=== PATIENT | female | born 1970 | race Caucasian/White ===

== ENCOUNTER 2020-02-26 11:40 | Inpatient (IN) | payer MEDICAID, SELFPAY ==
[2020-02-26 11:59] VITALS: BP 91/57; PULSE 96; RESP 16; TEMP 37; O2SAT 95; BMI 23.2
--- NOTE | 2020-02-26 12:21 | XR_ITS ---
EXAMINATION: XR CHEST CLINICAL INFORMATION: Shortness of breath and weakness COMPARISON: Previous chest x-ray most recent 02/21/2020 TECHNIQUE: Frontal view of the chest was obtained. FINDINGS: The cardiac and mediastinal contours are normal. The lungs are clear. There is no pleural effusion or pneumothorax There are mild degenerative changes of the spine. XR/XR chest 1V IMPRESSION: No evidence for acute disease in the chest.
--- NOTE | 2020-02-26 12:21 | ECG_ITS ---
Test Reason : SOB Blood Pressure : / mmHG Vent. Rate : 090 BPM Atrial Rate : 090 BPM P-R Int : 130 ms QRS Dur : 078 ms QT Int : 366 ms P-R-T Axes : 069 -03 062 degrees QTc Int : 447 ms Normal sinus rhythm Possible Left atrial enlargement Nonspecific ST abnormality Abnormal ECG When compared with ECG of 13-NOV-2018 12:30, No significant change was found Referred By: Jeimy Victor Electronically Signed By:CJ NOLAND
--- NOTE | 2020-02-26 12:33 | ED_ITS ---
HPI - SOB/Dyspnea General Chief Complaint: Dyspnea Stated Complaint: asthma Time Seen by Provider: 02/26/20 12:03 Source: patient Mode of arrival: ambulatory Limitations: no limitations History of Present Illness HPI Narrative: [age] year old female with a past medical history of diabetes, hypertension, hyperlipidemia, depression, anxiety, migraines, asthma, PE/DVT not on anticoagulation here with multiple complaints. The patient tells me approximately 1 month ago she inhaled some Clorox bleach while cleaning and since then has had cough and shortness of breath. She was seen last week at a emergency department in [place]. She had a chest x-ray which he tells me was unremarkable and she was placed on 5 days of an antibiotic which she does not know the name as well as 5 days of prednisone. She completed those this morning but continues to have symptoms of cough and shortness of breath. She tells me she has a nonproductive cough that feels like she has chest congestion. Shortness of breath with exertion. Chest pressure which is worsened with deep breathing and coughing and movement. The patient is also complaining of generalized weakness, headache and malaise. No vomiting, abdominal pain, diarrhea, fevers. No leg pain or swelling. MD elicited complaint: shortness of breath, cough, pain with inspiration and chest pain Pertinent past history: asthma Onset (ago): week(s) Timing: constant Severity: mild Exacerbating factors: exertion, coughing and inspiration Relieving factors: rest Associated symptoms: chest pain, pain with inspiration, cough and wheezing Related Data Home Medications Medication Instructions Recorded Confirmed albuterol sulfate 2 puff INHALATION Q6H PRN 02/26/20 02/26/20 atorvastatin 1 tab PO DAILY 02/26/20 02/26/20 duloxetine 1 cap PO DAILY 02/26/20 02/26/20 empagliflozin-metformin [Synjardy 2 tab PO DAILY 02/26/20 02/26/20 XR] fluticasone propionate [Flovent 1 puff INHALATION BID 02/26/20 02/26/20 HFA] insulin degludec [Tresiba unit SUBCUT DAILY 02/26/20 FlexTouch U-200] insulin lispro [Humalog KwikPen See Protocol SUBCUT QIDACHS 02/26/20 02/26/20 Insulin] lisinopril-hydrochlorothiazide 1 tab PO DAILY 02/26/20 02/26/20 mirtazapine 1 tab PO BEDTIME 02/26/20 02/26/20 Allergies Allergy/AdvReac Type Severity Reaction Status Date / Time No Known Allergies Allergy Unverified 12/07/19 16:08 [No Known Allergies*] Review of Systems Review of Systems: Yes all other systems are reviewed and are negative Constitutional: Constitutional: Reports no additional constitutional complaints, Reports body ache(s), Denies chills, Denies fever(s), Reports headache(s) and Reports weakness Eyes: Eyes: Reports no additional eye complaints and Denies change in vision ENT: Reports system reviewed and no additional complaints, except as documented, Denies dizziness, Reports headache(s), Denies nasal congestion, Denies nasal discharge and Denies neck pain Cardiovascular: Cardiovascular: Reports no additional cardiovascular complaints, Reports chest pain, Denies leg edema and Reports dyspnea Respiratory: Respiratory: Reports no additional respiratory complaints, Reports cough and Reports dyspnea Gastrointestinal: Gastrointestinal: Reports no additional gastrointestinal complaints, Denies abdominal pain, Denies diarrhea, Denies nausea and Denies vomiting Genitourinary: Genitourinary: Reports no additional female genitourinary complaints and Denies urinary incontinence Musculoskeletal: Musculoskeletal: Reports no additional musculoskeletal complaints, Denies back pain, Denies arthralgias, Denies joint swelling, Denies neck pain, Denies numbness and Denies tingling Integumentary/Breasts: Skin/Breast: Reports system reviewed and no additional complaints, except as docu and Denies rash Neurologic: Reports system reviewed and no additional complaints, except as documented, Denies Abnormal speech present, Denies dizziness, Reports head ache(s), Denies numbness, Denies tingling and Reports weakness PMFSH Past Medical History Attestation statement: The following information was validated with the patient. Source: old records reviewed and nursing notes reviewed Medical History (Updated 02/26/20 @ 17:08 by Jeimy Victor NP) Anxiety Asthma Depression Diabetes Hyperlipidemia Hypertension Social History Social History Alcohol intake: unknown Smoking Status: Unknown if ever smoked Use of substances other than those prescribed or required for medical reasons: No Advance Directives: No Advance Directives Information Provided: Yes Physical Exam Vital Signs: Vital Signs: Last Vital Signs Temp 98.2 F 02/26/20 13:45 Pulse 84 02/26/20 16:11 Resp 16 02/26/20 16:11 BP 96/63 02/26/20 16:11 Pulse Ox 95 02/26/20 16:11 Body Mass Index 23.2 Const: Other: in pain General: cooperative and no acute distress Orientation/consciousness: patient oriented x3 Limitations: no limitations HENMT: Head: Yes normal to inspection Ears: hearing grossly normal bilaterally General nose exam: Normal external nose present Face and sinus: Yes normal facial exam Mouth: Normal oral and palatal mucosa present Throat: Yes posterior oropharynx normal Eyes: General: appearance normal, both eyes and all related structures Pupils: Equal, round and reactive pupils present Neck: Neck: Yes normal visual inspection Chest: Chest palpation & inspection: normal inspection of the chest and tenderness ( central chest tenderness with deep breathing and palpation) Resp: Other: mild expiratory wheezing throughout Effort & Inspection: normal respiratory effort Cardio: Rate: regular rate Rhythm: regular rhythm Peripheral pulses: Peripheral pulses 2+ throughout GI: Inspection: Yes normal to inspection Palpation (GI): Soft to palpation and nontender Auscultation: normal bowel sounds Back/Spine/Pelvis: Thoracic/Lumbar Spine: thoracic and lumbar spine normal to inspection Skin: General skin exam: no rashes or lesions noted Neuro: General: patient oriented x3, no focal motor deficits and normal sensation to monofilament Cranial nerves: Yes Equal, round and reactive pupils present Cognition (Neuro): normal cognition Speech: No Abnormal speech present Gait exam (Neuro): Normal gait present Motor exam (neuro): 5/5 motor strength present throughout Extrem: General: Yes normal to inspection Course Course Course Narrative: 50-year-old female here with pleuritic chest pain, shortness of breath, cough, body aches, generalized weakness, headache for the last 2 days. Patient has been complaining of asthma symptoms for the last few weeks and completed a course of antibiotics and prednisone with continued symptoms. She now has feels like she is developing new symptoms and is not improving. On arrival the patient is noted to have high blood pressure of 91/57. She does tell me that her blood pressure normally runs low. She has some expiratory wheezing with stable saturations. She does have a history of pulmonary embolism 1 year ago and is not currently on anticoagulation. She does feel like some of her symptoms are similar to her pulmonary embolism. The patient will need labs including blood cultures and lactic acid, EKG, chest x-ray, COVID testing. Once renal function is resulted the patient will likely need a CTA to rule out PE. 1330- labs show leukocytosis at 16.2 and elevated lactic acid of 2.8. She has a corrected sodium of 135. patient's labs are consistent with mild dehydration. She has an elevated glucose of 492. IV insulin ordered. Added on acetone. Troponin 211. EKG shows non specific changes with no ST changes. Less likely ACS with no ST elevation, non specific changes and chest pain >24hrs. UA pending, COVID pending. CXR unremarkable. CTA pending. 1515- CT negative. Plan for repeat troponin, lactic acid and BMP. 1655- repeats glucose and lactic acid improved. Troponin however is now 312 which is increased from 1st troponin of 211. repeat EKG unchanged from initial EKG. Patient tells me her symptoms of chest pressure are much improved after receiving nebulizer, steroids in the ED. discussed with Dr. Becker from cardiology. He recommended admitting the patient to trend her troponins. Advised holding heparin and giving a dose of subQ Lovenox here. 1700-Lovenox subQ ordered. Call out to hospitalist to discuss for admission. -leukocytosis likely secondary to recent steroid use. Lactic acid likely secondary to dehydration and not from sepsis. Blood pressure secondary to dehydration and not from sepsis. Tachypnea secondary to chronic asthma and not from sepsis. 1745- Discussed with Kelli MADRID who accepted admission for patient. MDM - SOB/Dyspnea Medical Records Attestation: I reviewed the patient's medical records. Lab Data Attestation: I reviewed the patient's lab results. Result diagrams: 02/26/20 12:37 02/26/20 15:59 Labs: Lab Results 02/26/20 02/26/20 02/26/20 Range/Units 12:37 12:37 12:37 WBC 16.2 H (4.8-10.8) X10*3/uL RBC 5.22 (4.20-5.50) X10*6/uL Hgb 14.8 (12.0-16.0) g/dl Hct 44.8 (37-47) % MCV 85.8 (80-98) fL MCH 28.4 (27.0-33.0) pg MCHC 33.0 (31.0-35.0) g/dl RDW 12.6 (11.0-16.0) % Plt Count 390 (160-400) X10*3/uL MPV 11.3 (9.4-12.3) fL Immature Gran % (Auto) 1.4 H (0.0-0.4) % Neut % (Auto) 67.2 (45-73) % Lymph % (Auto) 25.0 (20-40) % [place] % (Auto) 5.3 (2-11) % Eos % (Auto) 0.6 (0-4) % Baso % (Auto) 0.5 (0-2) % Lymph # (Auto) 4.0 (1.2-4.9) X10*3/uL [place] # (Auto) 0.9 (0.1-1.2) X10*3/uL Eos # (Auto) 0.1 (0.0-0.4) X10*3/uL Baso # (Auto) 0.1 (0.0-0.2) X10*3/uL Abs Immat Gran (auto) 0.23 H (0.00-0.03) X10*3/uL Absolute Neuts (auto) 10.9 H (2.0-8.3) X10*3/uL Absolute Nucleated RBC 0.000 (0.0-0.012) X10*3/uL Nucleated RBC % (auto) 0.0 (0.0-0.2) /100WBC PT 10.5 L (10.8-13.0) SEC INR 0.9 (0.9-1.1) D-Dimer < 200 NG/ML Sodium 129 L (135-145) mmol/L Potassium 4.6 (3.3-5.1) mmol/l Chloride 91 L (96-108) mmol/L Carbon Dioxide 25 (22-29) mmol/L Anion Gap 18 (12-20) BUN 45 H (9-16) mg/dL Creatinine 1.35 (0.5-1.4) mg/dL Estim Creat Clear Calc 36.4 Estimated GFR 41 Random Glucose 492 H* (60-115) mg/dL Lactic Acid (0.5-2.0) mmol/L Lactic Acid Fup @ 2Hr (0.5-2.0) mmol/L Calcium 9.9 (8.4-10.2) mg/dL Magnesium 2.0 (1.6-2.6) mg/dL Ferritin 181 (10-250) ng/mL Total Bilirubin 0.5 (0.0-1.0) mg/dL Direct Bilirubin < 0.2 (0.0-0.5) mg/dL AST 10 (5-31) U/L ALT 9 (0-31) U/L Alkaline Phosphatase 88 (39-117) U/L Lactate Dehydrogenase 176 (122-220) U/L Troponin I High Sens (<3.5-17.0) ng/L Total Protein 6.1 L (6.5-8.0) g/dL Albumin 3.3 L (3.5-5.0) g/dL Procalcitonin ng/mL Urine Color Urine Appearance Urine pH (5.0-8.0) Ur Specific [place] (1.005-1.025) Urine Protein (NEG-TRACE) MG/DL Urine Glucose (UA) (NEG) MG/DL Urine Ketones (NEG) MG/DL Urine Blood (NEG) Urine Nitrite (NEG) Ur Leukocyte Esterase (NEG) Urine RBC (0) /HPF Urine WBC (0-4) /HPF Ur Squamous Epith Cells /LPF Urine Bacteria /LPF Acetone, Qual Negative (Negative) Coronavirus (PCR) (Negative) Influenza Type A (PCR) (Negative) Influenza Type B (PCR) (Negative) RSV RNA Qual (PCR) (Negative) 02/26/20 02/26/20 02/26/20 Range/Units 12:37 12:37 12:37 WBC (4.8-10.8) X10*3/uL RBC (4.20-5.50) X10*6/uL Hgb (12.0-16.0) g/dl Hct (37-47) % MCV (80-98) fL MCH (27.0-33.0) pg MCHC (31.0-35.0) g/dl RDW (11.0-16.0) % Plt Count (160-400) X10*3/uL MPV (9.4-12.3) fL Immature Gran % (Auto) (0.0-0.4) % Neut % (Auto) (45-73) % Lymph % (Auto) (20-40) % [place] % (Auto) (2-11) % Eos % (Auto) (0-4) % Baso % (Auto) (0-2) % Lymph # (Auto) (1.2-4.9) X10*3/uL [place] # (Auto) (0.1-1.2) X10*3/uL Eos # (Auto) (0.0-0.4) X10*3/uL Baso # (Auto) (0.0-0.2) X10*3/uL Abs Immat Gran (auto) (0.00-0.03) X10*3/uL Absolute Neuts (auto) (2.0-8.3) X10*3/uL Absolute Nucleated RBC (0.0-0.012) X10*3/uL Nucleated RBC % (auto) (0.0-0.2) /100WBC PT (10.8-13.0) SEC INR (0.9-1.1) D-Dimer NG/ML Sodium (135-145) mmol/L Potassium (3.3-5.1) mmol/l Chloride (96-108) mmol/L Carbon Dioxide (22-29) mmol/L Anion Gap (12-20) BUN (9-16) mg/dL Creatinine (0.5-1.4) mg/dL Estim Creat Clear Calc Estimated GFR Random Glucose (60-115) mg/dL Lactic Acid 2.8 H* (0.5-2.0) mmol/L Lactic Acid Fup @ 2Hr (0.5-2.0) mmol/L Calcium (8.4-10.2) mg/dL Magnesium (1.6-2.6) mg/dL Ferritin (10-250) ng/mL Total Bilirubin (0.0-1.0) mg/dL Direct Bilirubin (0.0-0.5) mg/dL AST (5-31) U/L ALT (0-31) U/L Alkaline Phosphatase (39-117) U/L Lactate Dehydrogenase (122-220) U/L Troponin I High Sens 211.1 H (<3.5-17.0) ng/L Total Protein (6.5-8.0) g/dL Albumin (3.5-5.0) g/dL Procalcitonin 0.04 ng/mL Urine Color Urine Appearance Urine pH (5.0-8.0) Ur Specific [place] (1.005-1.025) Urine Protein (NEG-TRACE) MG/DL Urine Glucose (UA) (NEG) MG/DL Urine Ketones (NEG) MG/DL Urine Blood (NEG) Urine Nitrite (NEG) Ur Leukocyte Esterase (NEG) Urine RBC (0) /HPF Urine WBC (0-4) /HPF Ur Squamous Epith Cells /LPF Urine Bacteria /LPF Acetone, Qual (Negative) Coronavirus (PCR) (Negative) Influenza Type A (PCR) (Negative) Influenza Type B (PCR) (Negative) RSV RNA Qual (PCR) (Negative) 02/26/20 02/26/20 02/26/20 Range/Units 12:38 13:34 15:59 WBC (4.8-10.8) X10*3/uL RBC (4.20-5.50) X10*6/uL Hgb (12.0-16.0) g/dl Hct (37-47) % MCV (80-98) fL MCH (27.0-33.0) pg MCHC (31.0-35.0) g/dl RDW (11.0-16.0) % Plt Count (160-400) X10*3/uL MPV (9.4-12.3) fL Immature Gran % (Auto) (0.0-0.4) % Neut % (Auto) (45-73) % Lymph % (Auto) (20-40) % [place] % (Auto) (2-11) % Eos % (Auto) (0-4) % Baso % (Auto) (0-2) % Lymph # (Auto) (1.2-4.9) X10*3/uL [place] # (Auto) (0.1-1.2) X10*3/uL Eos # (Auto) (0.0-0.4) X10*3/uL Baso # (Auto) (0.0-0.2) X10*3/uL Abs Immat Gran (auto) (0.00-0.03) X10*3/uL Absolute Neuts (auto) (2.0-8.3) X10*3/uL Absolute Nucleated RBC (0.0-0.012) X10*3/uL Nucleated RBC % (auto) (0.0-0.2) /100WBC PT (10.8-13.0) SEC INR (0.9-1.1) D-Dimer NG/ML Sodium (135-145) mmol/L Potassium (3.3-5.1) mmol/l Chloride (96-108) mmol/L Carbon Dioxide (22-29) mmol/L Anion Gap (12-20) BUN (9-16) mg/dL Creatinine (0.5-1.4) mg/dL Estim Creat Clear Calc Estimated GFR Random Glucose (60-115) mg/dL Lactic Acid (0.5-2.0) mmol/L Lactic Acid Fup @ 2Hr 1.8 (0.5-2.0) mmol/L Calcium (8.4-10.2) mg/dL Magnesium (1.6-2.6) mg/dL Ferritin (10-250) ng/mL Total Bilirubin (0.0-1.0) mg/dL Direct Bilirubin (0.0-0.5) mg/dL AST (5-31) U/L ALT (0-31) U/L Alkaline Phosphatase (39-117) U/L Lactate Dehydrogenase (122-220) U/L Troponin I High Sens (<3.5-17.0) ng/L Total Protein (6.5-8.0) g/dL Albumin (3.5-5.0) g/dL Procalcitonin ng/mL Urine Color YELLOW Urine Appearance CLEAR Urine pH 5.5 (5.0-8.0) Ur Specific [place] 1.015 (1.005-1.025) Urine Protein NEG (NEG-TRACE) MG/DL Urine Glucose (UA) >=1000 H (NEG) MG/DL Urine Ketones NEG (NEG) MG/DL Urine Blood NEG (NEG) Urine Nitrite NEG (NEG) Ur Leukocyte Esterase NEG (NEG) Urine RBC 0 (0) /HPF Urine WBC 0-2 (0-4) /HPF Ur Squamous Epith Cells 1+ /LPF Urine Bacteria TRACE /LPF Acetone, Qual (Negative) Coronavirus (PCR) NEGATIVE (Negative) Influenza Type A (PCR) NEGATIVE (Negative) Influenza Type B (PCR) NEGATIVE (Negative) RSV RNA Qual (PCR) NEGATIVE (Negative) 02/26/20 02/26/20 Range/Units 15:59 15:59 WBC (4.8-10.8) X10*3/uL RBC (4.20-5.50) X10*6/uL Hgb (12.0-16.0) g/dl Hct (37-47) % MCV (80-98) fL MCH (27.0-33.0) pg MCHC (31.0-35.0) g/dl RDW (11.0-16.0) % Plt Count (160-400) X10*3/uL MPV (9.4-12.3) fL Immature Gran % (Auto) (0.0-0.4) % Neut % (Auto) (45-73) % Lymph % (Auto) (20-40) % [place] % (Auto) (2-11) % Eos % (Auto) (0-4) % Baso % (Auto) (0-2) % Lymph # (Auto) (1.2-4.9) X10*3/uL [place] # (Auto) (0.1-1.2) X10*3/uL Eos # (Auto) (0.0-0.4) X10*3/uL Baso # (Auto) (0.0-0.2) X10*3/uL Abs Immat Gran (auto) (0.00-0.03) X10*3/uL Absolute Neuts (auto) (2.0-8.3) X10*3/uL Absolute Nucleated RBC (0.0-0.012) X10*3/uL Nucleated RBC % (auto) (0.0-0.2) /100WBC PT (10.8-13.0) SEC INR (0.9-1.1) D-Dimer NG/ML Sodium 131 L (135-145) mmol/L Potassium 4.2 (3.3-5.1) mmol/l Chloride 99 (96-108) mmol/L Carbon Dioxide 22 (22-29) mmol/L Anion Gap 14 (12-20) BUN 42 H (9-16) mg/dL Creatinine 0.98 (0.5-1.4) mg/dL Estim Creat Clear Calc 50.2 Estimated GFR 60 Random Glucose 307 H D (60-115) mg/dL Lactic Acid (0.5-2.0) mmol/L Lactic Acid Fup @ 2Hr (0.5-2.0) mmol/L Calcium 8.7 D (8.4-10.2) mg/dL Magnesium (1.6-2.6) mg/dL Ferritin (10-250) ng/mL Total Bilirubin (0.0-1.0) mg/dL Direct Bilirubin (0.0-0.5) mg/dL AST (5-31) U/L ALT (0-31) U/L Alkaline Phosphatase (39-117) U/L Lactate Dehydrogenase (122-220) U/L Troponin I High Sens 312.1 H (<3.5-17.0) ng/L Total Protein (6.5-8.0) g/dL Albumin (3.5-5.0) g/dL Procalcitonin ng/mL Urine Color Urine Appearance Urine pH (5.0-8.0) Ur Specific [place] (1.005-1.025) Urine Protein (NEG-TRACE) MG/DL Urine Glucose (UA) (NEG) MG/DL Urine Ketones (NEG) MG/DL Urine Blood (NEG) Urine Nitrite (NEG) Ur Leukocyte Esterase (NEG) Urine RBC (0) /HPF Urine WBC (0-4) /HPF Ur Squamous Epith Cells /LPF Urine Bacteria /LPF Acetone, Qual (Negative) Coronavirus (PCR) (Negative) Influenza Type A (PCR) (Negative) Influenza Type B (PCR) (Negative) RSV RNA Qual (PCR) (Negative) Imaging Data Chest x-ray: Attestation: I personally reviewed and interpreted this imaging study as follows: Radiologist's impression: EXAMINATION: XR CHEST CLINICAL INFORMATION: Shortness of breath and weakness COMPARISON: Previous chest x-ray most recent 02/21/2020 TECHNIQUE: Frontal view of the chest was obtained. FINDINGS: The cardiac and mediastinal contours are normal. The lungs are clear. There is no pleural effusion or pneumothorax There are mild degenerative changes of the spine. XR/XR chest 1V IMPRESSION: No evidence for acute disease in the chest. CT scan - chest: Attestation: I personally reviewed and interpreted this imaging study as follows: Radiologist's impression: EXAMINATION: CT ANGIOGRAM OF THE CHEST WITH AND WITHOUT CONTRAST (CT PULMONARY ANGIOGRAM FOR PE) CLINICAL INFORMATION: Reason for Exam sob, cp, r/o pe COMPARISON: Previous chest CTA August 2016 from [facility] TECHNIQUE: Prior to contrast administration, noncontrast localization images were obtained. Subsequently, multidetector volumetric imaging was performed from the thoracic inlet to below the diaphragms following the administration of 65 mL Omnipaque 350 intravenous contrast. No contrast reaction reported Sagittal, coronal, and MIP oblique sagittal reformatted images were obtained on the CT workstation, uploaded to PACS, and reviewed. This CT examination was performed using dose optimization techniques as appropriate, variously including the following: *Automated exposure control *Adjustment of mA and/or kV according to patient size (this includes techniques or standardized protocols for targeted exams where dose is matched to indication/reason for exam; i.e. extremities or head) *Use of iterative reconstruction technique Total exam dose-length product 211 mGy-cm FINDINGS: QUALITY OF STUDY/CONTRAST BOLUS: Satisfactory. PULMONARY ARTERIES: No central or segmental pulmonary emboli. THORACIC AORTA: No aneurysm or dissection. LUNG: There is mild bronchial wall thickening and bronchial soft tissue opacification in the right lower lobe for example axial image 314 series 7. There is heterogeneous attenuation in the right lower lobe suggestive of hypoventilatory changes or air trapping. There is a 4 mm left lower lobe nodule axial image 358 series 7. Comparison of the nodule with previous exam is difficult due to airspace disease on August 2016 exam however this may be similar for example axial image 311 series 12. The lungs are otherwise clear. The previously identified diffuse ground glass attenuation seen on 2017 exam has resolved. PLEURA: No pleural effusion or pneumothorax. MEDIASTINUM: Normal heart size. No pericardial effusion. No evidence of septal bowing or right heart strain. There are small mediastinal calcified lymph nodes. No enlarged lymph nodes are seen. CHEST WALL/AXILLA: No axillary or internal mammary lymphadenopathy. OSSEOUS STRUCTURES: No acute or suspicious osseous abnormality. UPPER ABDOMEN: Unremarkable. No reflux of contrast into the hepatic veins to suggest elevated right heart pressures. CT/CT angio chest PE protocol IMPRESSION: No evidence of pulmonary embolism. Mild airways disease in the right lower lobe. Small 4 mm left lower lobe pulmonary nodule. This may have been present on previous 2017 exam. VTE: negative ECG Data Attestation: I personally reviewed and interpreted this ECG as follows: ECG interpretation date: 02/26/20 ECG interpretation time: 12:36 Interpretation: NSR, normal rate 90, normal pr, normal qrs, normal qt, non specific st changes 1538- repeat EKG at 13:41 shows normal sinus rhythm, normal LA, normal QRS, normal QT, normal ST segment no changes from previous Discharge Plan Discharge Clinical Impression: Bronchitis, Acute dehydration, Acute hyperglycemia, Elevated troponin Asthma with exacerbation Qualifiers: Asthma severity: moderate Asthma persistence: persistent Qualified Code(s): J45.41 - Moderate persistent asthma with (acute) exacerbation Patient Disposition: Admitted As Inpatient
[2020-02-26 12:47] LABS: MANUAL DIFF FLAG NO
[2020-02-26 12:48] LABS: Basophils Absolute Auto 0.1 X10*3/uL (0.0-0.2); Basophils Percent Auto 0.5 % (0-2); Eosinophils Absolute Auto 0.1 X10*3/uL (0.0-0.4); Eosinophils Percent Auto 0.6 % (0-4); Hematocrit 44.8 % (37-47); Hemoglobin 14.8 g/dl (12.0-16.0); Imm Gran Abs Auto 0.23 X10*3/uL (0.00-0.03); Imm Gran Pct Auto 1.4 % (0.0-0.4); Mean Corpuscular Hemoglobin 28.4 pg (27.0-33.0); Mean Corpuscular Volume 85.8 fL (80-98); Mean Platelet Volume 11.3 fL (9.4-12.3); Monocytes Absolute Auto 0.9 X10*3/uL (0.1-1.2); Monocytes Percent Auto 5.3 % (2-11); Neutrophils Absolute Auto 10.9 X10*3/uL (2.0-8.3); Neutrophils Percent Auto 67.2 % (45-73); Platelet Count 390 X10*3/uL (160-400); Red Blood Count 5.22 X10*6/uL (4.20-5.50); Red Cell Distribution Width 12.6 % (11.0-16.0); White Blood Count 16.2 X10*3/uL (4.8-10.8)
[2020-02-26 12:54] LABS: INTERNATIONAL NORM RATIO 0.9 (0.9-1.1); Prothrombin Time 10.5 SEC (10.8-13.0)
[2020-02-26 12:57] LABS: D Dimer < 200 NG/ML
[2020-02-26 13:16] LABS: Lactic Acid 2.8 mmol/L (0.5-2.0)
[2020-02-26] MEDS: Magnesium Sulfate/H2O 2 GM/50 ML PIGGYBACK IV (13:18)
[2020-02-26] MEDS: methylPREDNISolone Sod Succ/PF 125 MG/2 ML VIAL IVPUSH (13:20)
[2020-02-26 13:22] LABS: Alanine Aminotransferase 9 U/L (0-31); Albumin Level 3.3 g/dL (3.5-5.0); Alkaline Phosphatase 88 U/L (39-117); Anion Gap 18 (12-20); Aspartate Amino Transferase 10 U/L (5-31); Bilirubin Direct < 0.2 mg/dL (0.0-0.5); Bilirubin Total 0.5 mg/dL (0.0-1.0); Blood Urea Nitrogen 45 mg/dL (9-16); Calcium 9.9 mg/dL (8.4-10.2); Carbon Dioxide 25 mmol/L (22-29); Chloride 91 mmol/L (96-108); Creatinine Clr Calc Pharmacy 36.4; Estimated Glomerular Filt Rate 41; Glucose Random 492 mg/dL (60-115); Lactate Dehydrogenase 176 U/L (122-220); Potassium 4.6 mmol/l (3.3-5.1); Sodium 129 mmol/L (135-145); Total Protein 6.1 g/dL (6.5-8.0)
[2020-02-26 13:27] LABS: Troponin-I High Sensitivity 211.1 ng/L (<3.5-17.0)
--- NOTE | 2020-02-26 13:27 | ECG_ITS ---
Test Reason : SOB Blood Pressure : / mmHG Vent. Rate : 075 BPM Atrial Rate : 075 BPM P-R Int : 116 ms QRS Dur : 072 ms QT Int : 404 ms P-R-T Axes : 070 -06 021 degrees QTc Int : 451 ms Normal sinus rhythm Poor R progression anterior leads, likely from body habitus or lead placement; When compared to the previous EKG of 26 feb 2020, no significant change Referred By: Jeimy Victor Electronically Signed By:CJ NOLAND
--- NOTE | 2020-02-26 13:27 | CT_ITS ---
EXAMINATION: CT ANGIOGRAM OF THE CHEST WITH AND WITHOUT CONTRAST (CT PULMONARY ANGIOGRAM FOR PE) CLINICAL INFORMATION: Reason for Exam sob, cp, r/o pe COMPARISON: Previous chest CTA August 2016 from [facility] TECHNIQUE: Prior to contrast administration, noncontrast localization images were obtained. Subsequently, multidetector volumetric imaging was performed from the thoracic inlet to below the diaphragms following the administration of 65 mL Omnipaque 350 intravenous contrast. No contrast reaction reported Sagittal, coronal, and MIP oblique sagittal reformatted images were obtained on the CT workstation, uploaded to PACS, and reviewed. This CT examination was performed using dose optimization techniques as appropriate, variously including the following: *Automated exposure control *Adjustment of mA and/or kV according to patient size (this includes techniques or standardized protocols for targeted exams where dose is matched to indication/reason for exam; i.e. extremities or head) *Use of iterative reconstruction technique Total exam dose-length product 211 mGy-cm FINDINGS: QUALITY OF STUDY/CONTRAST BOLUS: Satisfactory. PULMONARY ARTERIES: No central or segmental pulmonary emboli. THORACIC AORTA: No aneurysm or dissection. LUNG: There is mild bronchial wall thickening and bronchial soft tissue opacification in the right lower lobe for example axial image 314 series 7. There is heterogeneous attenuation in the right lower lobe suggestive of hypoventilatory changes or air trapping. There is a 4 mm left lower lobe nodule axial image 358 series 7. Comparison of the nodule with previous exam is difficult due to airspace disease on August 2016 exam however this may be similar for example axial image 311 series 12. The lungs are otherwise clear. The previously identified diffuse ground glass attenuation seen on 2017 exam has resolved. PLEURA: No pleural effusion or pneumothorax. MEDIASTINUM: Normal heart size. No pericardial effusion. No evidence of septal bowing or right heart strain. There are small mediastinal calcified lymph nodes. No enlarged lymph nodes are seen. CHEST WALL/AXILLA: No axillary or internal mammary lymphadenopathy. OSSEOUS STRUCTURES: No acute or suspicious osseous abnormality. UPPER ABDOMEN: Unremarkable. No reflux of contrast into the hepatic veins to suggest elevated right heart pressures. CT/CT angio chest PE protocol IMPRESSION: No evidence of pulmonary embolism. Mild airways disease in the right lower lobe. Small 4 mm left lower lobe pulmonary nodule. This may have been present on previous 2017 exam. VTE: negative
[2020-02-26 13:33] LABS: Influenza A PCR NEGATIVE (Negative); Influenza B PCR NEGATIVE (Negative); Resp Syncy Virus RNA Qual PCR NEGATIVE (Negative); SARS COV2 PCR INHOUSE NEGATIVE (Negative)
[2020-02-26] MEDS: Insulin Regular, Human 100 UNIT/ML 3 ML VIAL 10 UNIT IVPUSH ×2 (13:36→22:18)
[2020-02-26 13:38] LABS: Ferritin 181 ng/mL (10-250)
[2020-02-26 13:45] VITALS: BP 117/62; PULSE 77; RESP 17; TEMP 36.8; O2SAT 96
[2020-02-26 13:49] LABS: Acetone, serum QL Negative (Negative)
[2020-02-26 13:50] LABS: Glucose Urine UA >=1000 MG/DL (NEG); Leukocyte Esterase Urine NEG (NEG); Nitrite Urine NEG (NEG); PH 5.5 (5.0-8.0); Specific Gravity - Urine 1.015 (1.005-1.025); Urine Blood NEG (NEG); Urine Ketones NEG (NEG); Urine Protein NEG (NEG-TRACE)
[2020-02-26 13:57] LABS: Appearance Urine CLEAR; Color Urine YELLOW
[2020-02-26 13:58] LABS: Procalcitonin 0.04 ng/mL
[2020-02-26 14:05] LABS: Bacteria Urine TRACE /LPF; RBC Urine 0 /HPF (0); Squamous Epithelial Cell Urine 1+ /LPF; WBC Urine 0-2 /HPF (0-4)
[2020-02-26] MEDS: iohexoL 350 MG/ML 100 ML INFUS..BTL 65 ML IV (14:23)
[2020-02-26 14:44] LABS: Reflex Lactate? Lactic Acid Added
[2020-02-26 16:11] VITALS: BP 96/63; PULSE 84; RESP 16; O2SAT 95
[2020-02-26 16:32] LABS: ~Lactic Acid-LAB USE ONLY 1.8 mmol/L (0.5-2.0)
[2020-02-26 16:38] LABS: Anion Gap 14 (12-20); Blood Urea Nitrogen 42 mg/dL (9-16); Calcium 8.7 mg/dL (8.4-10.2); Carbon Dioxide 22 mmol/L (22-29); Chloride 99 mmol/L (96-108); Creatinine Clr Calc Pharmacy 50.2; Estimated Glomerular Filt Rate 60; Glucose Random 307 mg/dL (60-115); Potassium 4.2 mmol/l (3.3-5.1); Sodium 131 mmol/L (135-145)
[2020-02-26 16:48] LABS: Troponin-I High Sensitivity 312.1 ng/L (<3.5-17.0)
[2020-02-26] MEDS: Enoxaparin Sodium 100 MG/ML SYRINGE 50 MG SUBCUT (18:02)
--- NOTE | 2020-02-26 18:11 | P.HPHOSP_ITS ---
History of Present Illness Date of Service: 02/26/20 <Kelli King NP - Last Filed: 02/26/20 19:46> Chief Complaint: Chest pressure <Kelli King NP - Last Filed: 02/26/20 19:46> 50 year old women presenting with chest pressure and headache. She reported that her symptoms started on Wednesday. She was seen by her PCP on Wednesday and was found to be hypertensive. Her BP medication was changed. Today her BP was noted to be in the 90's systolic. She started having a headache yesterday. She also had chest pressure that started two days ago with radiation to her neck and back. She also reported some vomiting and diarrhea on wednesday. She denies SOB, fever, chills, recent travel or improperly cooked foods. She has a history of NSTEMI and PE. Was noted to be elevated 211 with repeat of 312. No acute ischemic EKG changes noted. White blood cell count of 16.2 blood glucose of 492, lactic acid 2.8. For any consolidation or pulmonary embolus. IV fluids, insulin, IV magnesium and therapeutic Lovenox. To be admitted for further management and treatment of chest pressure possibly related to NSTEMI, hypotension. <Kelli King NP - Last Filed: 02/26/20 19:46> Review of Systems Review of Systems: Denies any recent fever chills or decrease in appetite respiratory denies any shortness of breath coverage production cardiovascular is adjustment of any PND or edema gastrointestinal denies any dysphagia abdominal pain nausea vomiting or diarrhea genitourinary denies any dysuria frequency or hematuria musculoskeletal denies any joint pain or swelling neuropsych denies any weakness or seizures all other systems reviewed are negative <Kelli King NP - Last Filed: 02/26/20 19:46> Constitutional: Constitutional: Reports headache(s) and Reports weakness <Kelli King NP - Last Filed: 02/26/20 19:46> ENT: Denies dizziness and Reports headache(s) <Kelli King NP - Last Filed: 02/26/20 19:46> Musculoskeletal: Musculoskeletal: Denies numbness and Denies tingling <Kelli King NP - Last Filed: 02/26/20 19:46> Neurologic: Reports system reviewed and no additional complaints, except as documented, Denies Abnormal speech present, Denies dizziness, Reports headache(s), Denies numbness, Denies tingling and Reports weakness <Kelli King NP - Last Filed: 02/26/20 19:46> [facility] Medical History: Medical History (Updated 03/19/20 @ 13:59 by MARCUS Moreno) Anxiety Asthma CAD (coronary artery disease) Depression Diabetes Hyperlipidemia Hypertension NSTEMI (non-ST elevated myocardial infarction) Postoperative atrial fibrillation <Kelli King NP - Last Filed: 02/26/20 19:46> Family History: Family History (Updated 03/19/20 @ 13:44 by MARCUS Moreno) Sister Coronary arteriography abnormal ESRD (end stage renal disease) PAF (paroxysmal atrial fibrillation) <Kelli King NP - Last Filed: 02/26/20 19:46> Surgical History: Surgical History S/P CABG x 3 (~02/2020) S/P cardiac cath <Kelli King NP - Last Filed: 02/26/20 19:46> Social History: Social History Household Members: None Housing: House Alcohol intake: never Smoking Status: Current every day smoker service: No Current occupational status: disabled <Kelli King NP - Last Filed: 02/26/20 19:46> Meds Allergies/Adverse reactions: Allergies Allergy/AdvReac Type Severity Reaction Status Date / Time No Known Allergies Allergy Verified 03/04/20 12:50 [No Known Allergies*] <Kelli King NP - Last Filed: 02/26/20 19:46> Home medications: Home Medications Medication Instructions Recorded Confirmed Type Flovent HFA 2 puff INHALATION BID 02/26/20 03/04/20 History Synjardy XR 2 tab PO DAILY 02/26/20 03/04/20 History Tresiba FlexTouch U-200 30 unit SUBCUT DAILY 02/26/20 03/04/20 History albuterol sulfate 2 puff INHALATION Q4H PRN 02/26/20 03/19/20 History atorvastatin 1 tab PO DAILY 02/26/20 03/19/20 History duloxetine 1 cap PO DAILY 02/26/20 03/04/20 History insulin lispro [Humalog KwikPen 12 unit SUBCUT TIDAC 02/26/20 03/04/20 History Insulin] mirtazapine 1 tab PO BEDTIME 02/26/20 03/04/20 History amiodarone 200 mg tablet 200 mg PO BID 03/19/20 03/19/20 History clopidogrel 75 mg tablet 75 mg PO DAILY 03/19/20 03/19/20 History furosemide 40 mg tablet 40 mg PO DAILY 03/19/20 03/19/20 History metoprolol succinate 50 mg 50 mg PO DAILY 03/19/20 03/19/20 History tablet,extended release 24 hr pantoprazole 40 mg tablet,delayed 40 mg PO DAILY 03/19/20 03/19/20 History release thiamine HCl (vitamin B1) 100 mg 100 mg PO DAILY 03/19/20 03/19/20 History tablet <Kelli King NP - Last Filed: 02/26/20 19:46> Physical Exam Vital Signs and Narrative: Vital Signs: Last Vital Signs Temp 98.2 F 02/26/20 13:45 Pulse 84 02/26/20 16:11 Resp 16 02/26/20 16:11 BP 96/63 02/26/20 16:11 Pulse Ox 95 02/26/20 16:11 Body Mass Index 23.2 <Kelli King NP - Last Filed: 02/26/20 19:46> Appearing in no acute distress head is normocephalic atraumatic eyes pupils are PERRLA sclera is anicteric mouth throat mucous membranes are intact and moist neck is supple no lymphadenopathy, no JVD noted lung sounds are clear to auscultation heart regular rate rhythm, clear S1, S2 positive bowel sounds, abdomen is soft, nontender neuro patient is alert x3, no focal deficits <Kelli King NP - Last Filed: 02/26/20 19:46> Neuro: Speech: No Abnormal speech present <Kelli King NP - Last Filed: 02/26/20 19:46> Results Labs CBC and Chem 7: : 02/29/20 05:27 02/29/20 05:27 <Kelli King NP - Last Filed: 02/26/20 19:46> Labs: Laboratory Results - last 24 hr 02/26/20 02/26/20 02/26/20 12:37 12:37 12:37 MCV 85.8 MCH 28.4 MCHC 33.0 RDW 12.6 Plt Count 390 MPV 11.3 Immature Gran % (Auto) 1.4 H Neut % (Auto) 67.2 Lymph % (Auto) 25.0 Tyler % (Auto) 5.3 Eos % (Auto) 0.6 Baso % (Auto) 0.5 Lymph # (Auto) 4.0 Tyler # (Auto) 0.9 Eos # (Auto) 0.1 Baso # (Auto) 0.1 Abs Immat Gran (auto) 0.23 H Absolute Neuts (auto) 10.9 H Absolute Nucleated RBC 0.000 Nucleated RBC % (auto) 0.0 PT 10.5 L INR 0.9 D-Dimer < 200 Anion Gap 18 Estim Creat Clear Calc 36.4 Estimated GFR 41 Random Glucose 492 H* Lactic Acid Lactic Acid Fup @ 2Hr Calcium 9.9 Magnesium 2.0 Ferritin 181 Total Bilirubin 0.5 Direct Bilirubin < 0.2 AST 10 ALT 9 Alkaline Phosphatase 88 Lactate Dehydrogenase 176 Troponin I High Sens Total Protein 6.1 L Albumin 3.3 L Procalcitonin Urine Color Urine Appearance Urine pH Ur Specific [place] Urine Protein Urine Glucose (UA) Urine Ketones Urine Blood Urine Nitrite Ur Leukocyte Esterase Urine RBC Urine WBC Ur Squamous Epith Cells Urine Bacteria Acetone, Qual Negative Coronavirus (PCR) Influenza Type A (PCR) Influenza Type B (PCR) RSV RNA Qual (PCR) 02/26/20 02/26/20 02/26/20 12:37 12:37 12:37 MCV MCH MCHC RDW Plt Count MPV Immature Gran % (Auto) Neut % (Auto) Lymph % (Auto) Tyler % (Auto) Eos % (Auto) Baso % (Auto) Lymph # (Auto) Tyler # (Auto) Eos # (Auto) Baso # (Auto) Abs Immat Gran (auto) Absolute Neuts (auto) Absolute Nucleated RBC Nucleated RBC % (auto) PT INR D-Dimer Anion Gap Estim Creat Clear Calc Estimated GFR Random Glucose Lactic Acid 2.8 H* Lactic Acid Fup @ 2Hr Calcium Magnesium Ferritin Total Bilirubin Direct Bilirubin AST ALT Alkaline Phosphatase Lactate Dehydrogenase Troponin I High Sens 211.1 H Total Protein Albumin Procalcitonin 0.04 Urine Color Urine Appearance Urine pH Ur Specific [place] Urine Protein Urine Glucose (UA) Urine Ketones Urine Blood Urine Nitrite Ur Leukocyte Esterase Urine RBC Urine WBC Ur Squamous Epith Cells Urine Bacteria Acetone, Qual Coronavirus (PCR) Influenza Type A (PCR) Influenza Type B (PCR) RSV RNA Qual (PCR) 02/26/20 02/26/20 02/26/20 12:38 13:34 15:59 MCV MCH MCHC RDW Plt Count MPV Immature Gran % (Auto) Neut % (Auto) Lymph % (Auto) Tyler % (Auto) Eos % (Auto) Baso % (Auto) Lymph # (Auto) Tyler # (Auto) Eos # (Auto) Baso # (Auto) Abs Immat Gran (auto) Absolute Neuts (auto) Absolute Nucleated RBC Nucleated RBC % (auto) PT INR D-Dimer Anion Gap Estim Creat Clear Calc Estimated GFR Random Glucose Lactic Acid Lactic Acid Fup @ 2Hr 1.8 Calcium Magnesium Ferritin Total Bilirubin Direct Bilirubin AST ALT Alkaline Phosphatase Lactate Dehydrogenase Troponin I High Sens Total Protein Albumin Procalcitonin Urine Color YELLOW Urine Appearance CLEAR Urine pH 5.5 Ur Specific [place] 1.015 Urine Protein NEG Urine Glucose (UA) >=1000 H Urine Ketones NEG Urine Blood NEG Urine Nitrite NEG Ur Leukocyte Esterase NEG Urine RBC 0 Urine WBC 0-2 Ur Squamous Epith Cells 1+ Urine Bacteria TRACE Acetone, Qual Coronavirus (PCR) NEGATIVE Influenza Type A (PCR) NEGATIVE Influenza Type B (PCR) NEGATIVE RSV RNA Qual (PCR) NEGATIVE 02/26/20 02/26/20 15:59 15:59 MCV MCH MCHC RDW Plt Count MPV Immature Gran % (Auto) Neut % (Auto) Lymph % (Auto) Tyler % (Auto) Eos % (Auto) Baso % (Auto) Lymph # (Auto) Tyler # (Auto) Eos # (Auto) Baso # (Auto) Abs Immat Gran (auto) Absolute Neuts (auto) Absolute Nucleated RBC Nucleated RBC % (auto) PT INR D-Dimer Anion Gap 14 Estim Creat Clear Calc 50.2 Estimated GFR 60 Random Glucose 307 H D Lactic Acid Lactic Acid Fup @ 2Hr Calcium 8.7 D Magnesium Ferritin Total Bilirubin Direct Bilirubin AST ALT Alkaline Phosphatase Lactate Dehydrogenase Troponin I High Sens 312.1 H Total Protein Albumin Procalcitonin Urine Color Urine Appearance Urine pH Ur Specific [place] Urine Protein Urine Glucose (UA) Urine Ketones Urine Blood Urine Nitrite Ur Leukocyte Esterase Urine RBC Urine WBC Ur Squamous Epith Cells Urine Bacteria Acetone, Qual Coronavirus (PCR) Influenza Type A (PCR) Influenza Type B (PCR) RSV RNA Qual (PCR) <Kelli King NP - Last Filed: 02/26/20 19:46> Imaging Radiologist's Impressions: Impressions Chest X-Ray 02/26/20 12:21 IMPRESSION: No evidence for acute disease in the chest. Chest CTA 02/26/20 13:27 IMPRESSION: No evidence of pulmonary embolism. Mild airways disease in the right lower lobe. Small 4 mm left lower lobe pulmonary nodule. This may have been present on previous 2017 exam. VTE: negative <Kelli King NP - Last Filed: 02/26/20 19:46> Assessment and Plan (1) Elevated troponin: Status: Resolved <Kelli King NP - Last Filed: 02/26/20 19:46> (2) Hypotension: Status: Resolved <Kelli King NP - Last Filed: 02/26/20 19:46> (3) Headache: Status: Resolved <Kelli King NP - Last Filed: 02/26/20 19:46> (4) Chest pain: Status: Resolved <Kelli King NP - Last Filed: 02/26/20 19:46> 50-year-old woman admitted with chest pain, headache and hypotension. Chest pain/pressure. No acute ischemic changes. Will place on telemetry. History of NSTEMI in the past. Received a dose of therapeutic Lovenox in the ER will continue this, cardiology to follow. Aspirin and statin. Headache. Possibly related to hypotension. Patient recently changed blood pressure medication, will hold. Treat headache. Hypotension. Likely related to recent medication change. Will hold l isinopril/hydrochlorothiazide. Leukocytosis. Likely related to recent steroid use, no infection noted. Lactic acidosis. Multifactorial, Likely related to dehydration, albuterol use. Asthma. No exacerbation. Duo nebs as needed. Diabetes mellitus. Sliding scale, ADA diet. Continue home medications. Elevated glucose likely related to recent steroid use. DVT prophylaxis with therapeutic Lovenox Discussed with Dr. Vargas Full code <Kelli King NP - Last Filed: 02/26/20 19:46>
--- NOTE | 2020-02-26 18:36 | P.EN_ITS ---
Event Note Date of Service: 02/26/20 Event Note: patient seen examined with APC, chart reviewed 50-year-old female patient with past medical history of diabetes hypertension, hyperlipidemia and depression and history of PE/DVT currently not on anticoagulation presented to [facility] with multiple symptoms including nonproductive cough, chest congestion shortness of breath with exertion and chest pain worsened with deep breathing and coughing patient also complained of generalized weakness headache malaise, patient recently treated 1 week ago in [place] with by mouth antibiotic and short course of steroids that she finished today patient denies any fevers nausea vomiting abdominal pain or diarr hea workup in the emergency room revealed an EKG with no acute ischemic changes, CTA chest that showed no pulmonary embolism it showed mild airway disease in the right lower lobe, elevated troponin at present patient denies any chest discomfort complaining of generalized headache on examination sitting comfortably in no distress llungs coarse breath sound with no wheeze or rhonchi heart regular extremities no edema neuro nonfocal assessment and plan chest pressure with elevated troponin due to multiple coronary artery disease risk factors case discussed with extrusion bender and they are recommending to treat with Lovenox full dose prophylactically and continue home medications including statins beta-blockers and aspirin hypotension due to antihypertensive medication lactic acidosis due to dehydration diabetes mellitus with elevated blood sugars likely due to recent use of steroids headache likely due to low blood pressure
[2020-02-26 19:18] VITALS: BP 113/66; PULSE 93; RESP 20; O2SAT 99
--- NOTE | 2020-02-26 19:23 | PC.NURSE ---
x1 attempt to give report. awaiting callback
[2020-02-26 21:20] VITALS: BP 126/72; PULSE 88; RESP 20; TEMP 36.9; O2SAT 100
[2020-02-26 21:26] LABS: Hematocrit 39.8 % (37-47); Mean Corpuscular HGB Conc 32.7 g/dl (31.0-35.0); Mean Corpuscular Hemoglobin 28.1 pg (27.0-33.0); Mean Platelet Volume 11.9 fL (9.4-12.3); Platelet Count 306 X10*3/uL (160-400); Red Blood Count 4.63 X10*6/uL (4.20-5.50); Red Cell Distribution Width 12.5 % (11.0-16.0)
[2020-02-26 21:27] LABS: Glucose, Whole Blood > 600 mg/dL (60-115)
[2020-02-26 21:33] LABS: INTERNATIONAL NORM RATIO 0.9 (0.9-1.1); Prothrombin Time 10.8 SEC (10.8-13.0)
[2020-02-26 21:35] LABS: Partial Thromboplastin Time 37.4 SEC (24.1-38.0)
[2020-02-26] MEDS: Mirtazapine 30 MG TABLET PO (21:56)
[2020-02-26] MEDS: 0.9 % Sodium Chloride 1,000 ML 100 ML IVCONT (21:56)
[2020-02-26 22:16] LABS: Glucose, Whole Blood > 600 mg/dL (60-115)
[2020-02-26 22:16] LABS: Glucose, Whole Blood > 600 mg/dL (60-115)
[2020-02-26 22:16] LABS: Glucose, Whole Blood > 600 mg/dL (60-115)
[2020-02-26] MEDS: Insulin Lispro 100 UNIT/ML 3 ML VIAL SUBCUT ×2 (22:18)
[2020-02-26] MEDS: Insulin Glargine,Hum.rec.anlog 100 UNIT/ML 10 ML VIAL 21 UNIT SUBCUT (22:19)
[2020-02-26] MEDS: Acetaminophen 325 MG TABLET 650 MG PO (22:23)
[2020-02-26 22:42] LABS: Anion Gap 14 (12-20); Blood Urea Nitrogen 46 mg/dL (9-16); Calcium 7.9 mg/dL (8.4-10.2); Carbon Dioxide 21 mmol/L (22-29); Chloride 97 mmol/L (96-108); Creatinine Clr Calc Pharmacy 30.1; Estimated Glomerular Filt Rate 33; Sodium 127 mmol/L (135-145)
[2020-02-26 22:54] LABS: Glucose Random 706 mg/dL (60-115)
[2020-02-26 23:30] VITALS: BP 130/76; PULSE 92; RESP 20; TEMP 37; O2SAT 92
[2020-02-27] VITALS (7 sets, daily range): BP systolic 112–177; BP diastolic 68–90; PULSE 73–90; RESP 16–20; TEMP 36.4–37.2; O2SAT 91–100
[2020-02-27 00:35] LABS: Glucose, Whole Blood 502 mg/dL (60-115)
[2020-02-27] MEDS: Insulin Regular, Human 100 UNIT/ML 3 ML VIAL IVPUSH (00:45)
[2020-02-27] MEDS: Insulin Lispro 100 UNIT/ML 3 ML VIAL 15 UNIT SUBCUT (00:45)
[2020-02-27 03:33] LABS: Glucose, Whole Blood 217 mg/dL (60-115)
[2020-02-27 04:49] LABS: MANUAL DIFF FLAG NO
[2020-02-27 04:54] LABS: Basophils Percent Auto 0.1 % (0-2); Hematocrit 40.3 % (37-47); Hemoglobin 13.2 g/dl (12.0-16.0); Imm Gran Abs Auto 0.19 X10*3/uL (0.00-0.03); Imm Gran Pct Auto 1.5 % (0.0-0.4); Lymphocytes Absolute Auto 1.6 X10*3/uL (1.2-4.9); Lymphocytes Percent Auto 12.4 % (20-40); Mean Corpuscular HGB Conc 32.8 g/dl (31.0-35.0); Mean Corpuscular Hemoglobin 27.9 pg (27.0-33.0); Mean Corpuscular Volume 85.2 fL (80-98); Mean Platelet Volume 11.4 fL (9.4-12.3); Monocytes Absolute Auto 0.6 X10*3/uL (0.1-1.2); Monocytes Percent Auto 4.6 % (2-11); Neutrophils Absolute Auto 10.2 X10*3/uL (2.0-8.3); Neutrophils Percent Auto 81.4 % (45-73); Platelet Count 352 X10*3/uL (160-400); Red Blood Count 4.73 X10*6/uL (4.20-5.50); Red Cell Distribution Width 12.4 % (11.0-16.0); White Blood Count 12.5 X10*3/uL (4.8-10.8)
[2020-02-27 05:18] LABS: Anion Gap 15 (12-20); Blood Urea Nitrogen 51 mg/dL (9-16); Calcium 8.4 mg/dL (8.4-10.2); Carbon Dioxide 22 mmol/L (22-29); Chloride 104 mmol/L (96-108); Cholesterol 289 mg/dL; Creatinine Clr Calc Pharmacy 38.7; Estimated Glomerular Filt Rate 44; Glucose Random 135 mg/dL (60-115); HDL Cholesterol 38 mg/dL; Sodium 137 mmol/L (135-145); Triglycerides 717 mg/dL
[2020-02-27] MEDS: Enoxaparin Sodium 60 MG/0.6 ML SYRINGE 50 MG SUBCUT ×2 (05:27→17:27)
[2020-02-27 06:17] LABS: Glucose, Whole Blood 92 mg/dL (60-115)
[2020-02-27 08:03] LABS: Glucose, Whole Blood 93 mg/dL (60-115)
[2020-02-27] MEDS: Ezetimibe 10 MG TABLET PO (08:35)
[2020-02-27] MEDS: Aspirin 81 MG TAB.CHEW PO (08:35)
[2020-02-27] MEDS: Atorvastatin Calcium 80 MG TABLET PO (08:35)
[2020-02-27] MEDS: DULoxetine HCl 60 MG CAPSULE.DR PO (08:36)
--- NOTE | 2020-02-27 08:56 | P.DS_ITS ---
DS: Providers Provider Date of admission: 02/26/20 18:55 Primary care physician: Unknown Physician Consults: 02/26/20 19:39 Consult to Cardiology Routine Consulting Provider: Michael Becker Reason for consultation: chest pressure Has provider been notified: No DS: Diagnosis Discharge Diagnosis (1) Elevated troponin: Status: Resolved (2) Hypotension: Status: Resolved (3) Headache: Status: Resolved (4) Chest pain: Status: Resolved DS: Medications Discharge Medications Home Medications: Home Medications Medication Instructions Recorded Confirmed albuterol sulfate 2 puff INHALATION Q4H PRN 02/26/20 02/26/20 atorvastatin 1 tab PO DAILY 02/26/20 02/26/20 duloxetine 1 cap PO DAILY 02/26/20 02/26/20 empagliflozin-metformin [Synjardy 2 tab PO DAILY 02/26/20 02/26/20 XR] ezetimibe 1 tab PO DAILY 02/26/20 02/26/20 fluticasone propionate [Flovent 2 puff INHALATION BID 02/26/20 02/26/20 HFA] insulin degludec [Tresiba 30 unit SUBCUT DAILY 02/26/20 02/26/20 FlexTouch U-200] insulin lispro [Humalog KwikPen 12 unit SUBCUT TIDAC 02/26/20 02/26/20 Insulin] lisinopril-hydrochlorothiazide 1 tab PO DAILY 02/26/20 02/26/20 mirtazapine 1 tab PO BEDTIME 02/26/20 02/26/20 DS: Summary Hospital Course Hospital Course: Admission note HPI 50 year old women presenting with chest pressure and headache. She reported that her symptoms started on Wednesday. She was seen by her PCP on Wednesday and was found to be hypertensive. Her BP medication was changed. Today her BP was noted to be in the 90's systolic. She started having a headache yesterday. She also had chest pressure that started two days ago with radiation to her neck and back. She also reported some vomiting and diarrhea on wednesday. She denies SOB, fever, chills, recent travel or improperly cooked foods. She has a history of NSTEMI and PE. Was noted to be elevated troponin 211 with repeat of 312. No acute ischemic EKG changes noted. White blood cell count of 16.2 blood glucose of 492, lactic acid 2.8. For any consolidation or pulmonary embolus. IV fluids, insulin, IV magnesium and therapeutic Lovenox. To be admitted for further management and treatment of chest pressure possibly related to NSTEMI, hypotension. Hospital course Patient was admitted to telemetry unit and diagnosed to have secondary non ST- elevation IN related to respiratory issues patient has multiple risk factors for coronary artery disease including smoking, diabetes, dyslipidemia, patient was treated with Lovenox for 48 hours was placed on aspirin and beta blockers and echocardiogram was obtained that revealed anterior lateral, distal anterior and basal inferior hypokinesis, patient was closely evaluated by Dr. Becker he will arrange for outpatient further workup. Patient underwent Lexiscan stress test during stress part patient had no anginal symptoms however nuclear images were positive for multiple areas of moderately reduced uptake. Patient has had no further bout of chest pain since she is hemodynamically stable she has been discharged home on aspirin statins and beta-nelly. Headache resolved was likely due to hypotension. In regard to other medical issues recommend to continue oral hypoglycemics and insulin. Time Spent with Patient Time attestation: Total time spent providing and/or coordinating discharge services: Physical Exam Vital Signs: Vital Signs: Last Vital Signs Temp 98.0 F 02/27/20 07:22 Pulse 80 02/27/20 07:22 Resp 18 02/27/20 07:22 BP 112/68 02/27/20 07:22 Pulse Ox 91 L 02/27/20 07:22 Body Mass Index 23.2 Constitutional : Alert, oriented, not in distress Neck : Normal inspection, Supple Cardiovascular : RRR, S1 S2, no lower extremity edema Respiratory : Good bilateral air entry, no crackles, scattered wheezes Gastrointestinal: soft, lax, Normal bowel sounds, Non tender Skin : Warm/Dry, No rash Neurological : Alert & oriented x3, No focal deficit DS: Data Data Completed and Pending Labs on day of discharge: 02/26/20 12:21 ECG 12 lead EKG Stat EKG Documentation DIRECTED IV insert/maintain .Now XR chest 1V Stat 0.9 % Sodium Chloride [Ns] 1,560 ml IV 999 mls/hr Magnesium Sulfate/H2O 2 gm in 50 ml IV ONCE methylPREDNISolone Sod Succ/PF [SOLU-MedroL] 125 mg IVPUSH ONCE ONE 02/26/20 12:37 Acetone, serum QL Stat Basic Metabolic Panel Stat Complete Blood Count Auto Diff Stat D Dimer Stat Ferritin Stat Lactate Dehydrogenase Stat Lactic Acid Stat Liver Panel Stat Magnesium Stat Procalcitonin Stat Prothrombin Time INR Stat Troponin-I High Sensitivity Stat 02/26/20 12:38 SARS-CoV2/FLU/RSV Stat 02/26/20 13:25 Insulin Regular, Human [Humulin R] 10 unit IVPUSH ONCE ONE 02/26/20 13:27 ECG 12 lead EKG Stat EKG Documentation DIRECTED CT angio chest PE protocol Stat 02/26/20 13:44 Add Laboratory Test Stat 02/26/20 14:23 iohexoL 350 MG/ML [Omnipaque 350 MG/ML] 65 ml IV ONCE ONE 02/26/20 15:59 Basic Metabolic Panel Stat Troponin-I High Sensitivity Stat ~Lactic Acid-LAB USE ONLY Stat 02/26/20 17:02 Enoxaparin Sodium [Lovenox] 50 mg SUBCUT ONCE ONE 02/26/20 18:46 Transfer Order Routine 02/26/20 19:39 IV insert/maintain Q4HR Intake and Output QSHIFTE Vital Signs Q4HR 02/26/20 21:12 Glucose, Whole Blood Routine 02/26/20 21:15 Add Laboratory Test Stat Basic Metabolic Panel Stat 02/26/20 21:17 Complete Blood Count no Diff Stat Glucose, Whole Blood Routine Partial Thromboplastin Time Stat Prothrombin Time INR Stat 02/26/20 21:22 Glucose, Whole Blood Routine 02/26/20 22:00 Insulin Lispro [Humalog] 5 unit SUBCUT ONCE ONE Insulin Regular, Human [Humulin R] 10 unit IVPUSH ONCE ONE 02/26/20 22:11 Glucose, Whole Blood Routine 02/27/20 00:30 Glucose, Whole Blood Routine 02/27/20 00:34 Insulin Lispro [Humalog] 15 unit SUBCUT ONCE ONE Insulin Regular, Human [Humulin R] 5 unit IVPUSH ONCE ONE 02/27/20 03:28 Glucose, Whole Blood Routine 02/27/20 04:14 Basic Metabolic Panel DAILY@0600 Complete Blood Count Auto Diff DAILY@0600 Lipid Panel Routine 02/27/20 06:13 Glucose, Whole Blood Routine 02/27/20 07:24 Glucose, Whole Blood Routine 02/27/20 07:30 Insulin Lispro [Humalog] See Protocol SUBCUT QIDACHS 02/27/20 09:00 Insulin Glargine,Hum.rec.anlog [Lantus] 21 unit SUBCUT DAILY Laboratory Last Values WBC 12.5 X10*3/uL (4.8-10.8) H 02/27/20 04:14 RBC 4.73 X10*6/uL (4.20-5.50) 02/27/20 04:14 Hgb 13.2 g/dl (12.0-16.0) 02/27/20 04:14 Hct 40.3 % (37-47) 02/27/20 04:14 MCV 85.2 fL (80-98) 02/27/20 04:14 MCH 27.9 pg (27.0-33.0) 02/27/20 04:14 MCHC 32.8 g/dl (31.0-35.0) 02/27/20 04:14 RDW 12.4 % (11.0-16.0) 02/27/20 04:14 Plt Count 352 X10*3/uL (160-400) 02/27/20 04:14 MPV 11.4 fL (9.4-12.3) 02/27/20 04:14 Immature Gran % (Auto) 1.5 % (0.0-0.4) H 02/27/20 04:14 Neut % (Auto) 81.4 % (45-73) H 02/27/20 04:14 Lymph % (Auto) 12.4 % (20-40) L 02/27/20 04:14 [place] % (Auto) 4.6 % (2-11) 02/27/20 04:14 Eos % (Auto) 0.0 % (0-4) 02/27/20 04:14 Baso % (Auto) 0.1 % (0-2) 02/27/20 04:14 Lymph # (Auto) 1.6 X10*3/uL (1.2-4.9) 02/27/20 04:14 [place] # (Auto) 0.6 X10*3/uL (0.1-1.2) 02/27/20 04:14 Eos # (Auto) 0.0 X10*3/uL (0.0-0.4) 02/27/20 04:14 Baso # (Auto) 0.0 X10*3/uL (0.0-0.2) 02/27/20 04:14 Abs Immat Gran (auto) 0.19 X10*3/uL (0.00-0.03) H 02/27/20 04:14 Absolute Neuts (auto) 10.2 X10*3/uL (2.0-8.3) H 02/27/20 04:14 Absolute Nucleated RBC 0.000 X10*3/uL (0.0-0.012) 02/27/20 04:14 Nucleated RBC % (auto) 0.0 /100WBC (0.0-0.2) 02/27/20 04:14 PT 10.8 SEC (10.8-13.0) 02/26/20 21:17 INR 0.9 (0.9-1.1) 02/26/20 21:17 APTT 37.4 SEC (24.1-38.0) 02/26/20 21:17 D-Dimer < 200 NG/ML 02/26/20 12:37 Sodium 137 mmol/L (135-145) 02/27/20 04:14 Potassium 4.0 mmol/l (3.3-5.1) 02/27/20 04:14 Chloride 104 mmol/L (96-108) 02/27/20 04:14 Carbon Dioxide 22 mmol/L (22-29) 02/27/20 04:14 Anion Gap 15 (12-20) 02/27/20 04:14 BUN 51 mg/dL (9-16) H 02/27/20 04:14 Creatinine 1.27 mg/dL (0.5-1.4) 02/27/20 04:14 Estim Creat Clear Calc 38.7 02/27/20 04:14 Estimated GFR 44 02/27/20 04:14 POC Glucose 93 mg/dL (60-115) 02/27/20 07:24 Random Glucose 135 mg/dL (60-115) H D 02/27/20 04:14 Lactic Acid 2.8 mmol/L (0.5-2.0) H* 02/26/20 12:37 Lactic Acid Fup @ 2Hr 1.8 mmol/L (0.5-2.0) 02/26/20 15:59 Calcium 8.4 mg/dL (8.4-10.2) D 02/27/20 04:14 Magnesium 2.0 mg/dL (1.6-2.6) 02/26/20 12:37 Ferritin 181 ng/mL (10-250) 02/26/20 12:37 Total Bilirubin 0.5 mg/dL (0.0-1.0) 02/26/20 12:37 Direct Bilirubin < 0.2 mg/dL (0.0-0.5) 02/26/20 12:37 AST 10 U/L (5-31) 02/26/20 12:37 ALT 9 U/L (0-31) 02/26/20 12:37 Alkaline Phosphatase 88 U/L (39-117) 02/26/20 12:37 Lactate Dehydrogenase 176 U/L (122-220) 02/26/20 12:37 Troponin I High Sens 312.1 ng/L (<3.5-17.0) H 02/26/20 15:59 Total Protein 6.1 g/dL (6.5-8.0) L 02/26/20 12:37 Albumin 3.3 g/dL (3.5-5.0) L 02/26/20 12:37 Triglycerides 717 mg/dL 02/27/20 04:14 Triglycerides Cancelled 02/27/20 04:14 Cholesterol 289 mg/dL 02/27/20 04:14 Cholesterol Cancelled 02/27/20 04:14 LDL Cholesterol, Calc Cancelled 02/27/20 04:14 LDL Cholesterol, Calc TNP 02/27/20 04:14 HDL Cholesterol 38 mg/dL 02/27/20 04:14 HDL Cholesterol Cancelled 02/27/20 04:14 Procalcitonin 0.04 ng/mL 02/26/20 12:37 Urine Color YELLOW 02/26/20 13:34 Urine Appearance CLEAR 02/26/20 13:34 Urine pH 5.5 (5.0-8.0) 02/26/20 13:34 Ur Specific Cranks 1.015 (1.005-1.025) 02/26/20 13:34 Urine Protein NEG MG/DL (NEG-TRACE) 02/26/20 13:34 Urine Glucose (UA) >=1000 MG/DL (NEG) H 02/26/20 13:34 Urine Ketones NEG MG/DL (NEG) 02/26/20 13:34 Urine Blood NEG (NEG) 02/26/20 13:34 Urine Nitrite NEG (NEG) 02/26/20 13:34 Ur Leukocyte Esterase NEG (NEG) 02/26/20 13:34 Urine RBC 0 /HPF (0) 02/26/20 13:34 Urine WBC 0-2 /HPF (0-4) 02/26/20 13:34 Ur Squamous Epith Cells 1+ /LPF 02/26/20 13:34 Urine Bacteria TRACE /LPF 02/26/20 13:34 Acetone, Qual Negative (Negative) 02/26/20 12:37 Coronavirus (PCR) NEGATIVE (Negative) 02/26/20 12:38 Influenza Type A (PCR) NEGATIVE (Negative) 02/26/20 12:38 Influenza Type B (PCR) NEGATIVE (Negative) 02/26/20 12:38 RSV RNA Qual (PCR) NEGATIVE (Negative) 02/26/20 12:38 Discharge Plan Discharge Patient Disposition: Home, Self-Care Discharge Medications: New lisinopril 5 mg tablet 5 mg PO DAILY Qty: 30 RF: 0 metoprolol succinate 25 mg Tablet Extended Release 24 Hr 25 mg PO DAILY Qty: 30 RF: 0 aspirin 81 mg Tablet,Chewable 81 mg PO DAILY Qty: 30 RF: 0 Continued atorvastatin 80 mg tablet 1 tab PO DAILY RF: 0 mirtazapine 30 mg tablet,disintegrating 1 tab PO BEDTIME RF: 0 albuterol sulfate 90 mcg/actuation HFA aerosol inhaler 2 puff inhalation Q4H PRN (Reason: Shortness Of Breath Or Wheezing) RF: 0 insulin lispro [Humalog KwikPen Insulin] 100 unit/mL insulin pen 12 unit subcut TIDAC RF: 0 duloxetine 60 mg capsule,delayed release(DR/EC) 1 cap PO DAILY RF: 0 Tresiba FlexTouch U-200 200 unit/mL (3 mL) insulin pen 30 unit subcut DAILY RF: 0 Flovent HFA 44 mcg/actuation HFA aerosol inhaler 2 puff inhalation BID RF: 0 Synjardy XR 12.5-1,000 mg tablet, IR - ER, biphasic 24hr 2 tab PO DAILY RF: 0 ezetimibe 10 mg tablet 1 tab PO DAILY RF: 0 Discontinued lisinopril-hydrochlorothiazide 10-12.5 mg tablet 1 tab PO DAILY RF: 0 Discharge Orders: Discharge Order (Routine); Ordered 02/29/20 Ordered By: Roberto Vargas Diet: diabetic diet and low fat, low cholesterol Activity on Discharge: No heavy lifting Discharge Date/Time: 02/29/20 12:15 Visit Report Forms: Patient Portal Discharge page Care Plan Goals: Follow diabetic and low-cholesterol diet take all medications as prescribed Health Concerns: Follow-up with cardiology for further treatment Plan of Treatment: Follow-up with primary care physician and Cardiology
--- NOTE | 2020-02-27 09:24 | MHC.CM.PN ---
CM met with patient at the bedside who reports she is independent and lives alone. Patient does not have a HCP and declines filling one out today after education. Discussed discharge plan, home no services. Sister ADA [phone] will provide transportation. CM will continue to follow patient for discharge needs.
--- NOTE | 2020-02-27 09:42 | PM.CNCAR ---
History of Present Illness History of Present Illness Date of Service: 02/27/20 Chief complaint: Chest pressure Narrative: This is a cardiology consultation regarding elevated troponins. She apparently has a history of asthma. She does get occasional wheezing type symptoms. For the last few days she has not been feeling good and thought that she was having an asthma flare-up. Then developed other symptoms like chest pressure that was going up to her neck area. Then she also had some nausea and vomiting. No cough or any fevers. Then she was seen in the ER and found to have elevated troponins and has subsequently admitted. She states that she was told to have a heart attack many years ago but it does not appear that she underwent any workup and this was in a different state -you are. Otherwise she has a history of smoking, diabetes. Her twin sister who is known to has has numerous cardiac issues. Review of Systems Review of Systems: Yes all other systems are reviewed and are negative Constitutional: Constitutional: Reports headache(s) and Reports weakness ENT: Denies dizziness and Reports headache(s) Cardiovascular: Cardiovascular: Reports as per HPI, Reports no additional cardiovascular complaints, Denies acrocyanosis, Denies cool extremities, Reports chest pain, Denies diaphoresis, Denies syncope, Denies rapid heart rate, Denies leg edema, Denies palpitations and Reports dyspnea Respiratory: Respiratory: Reports dyspnea Musculoskeletal: Musculoskeletal: Denies numbness and Denies tingling Neurologic: Reports system reviewed and no additional complaints, except as documented, Denies Abnormal speech present, Denies dizziness, Denies syncope, Reports headache(s), Denies numbness, Denies tingling and Reports weakness Endocrine: Endocrine: Denies palpitations [facility] Past Medical History Medical History Anxiety Asthma Depression Diabetes Hyperlipidemia Hypertension NSTEMI (non-ST elevated myocardial infarction) Social History Social History Household Members: None Housing: House Do you presently have visiting nurse or other home services: No Alcohol intake: unknown Smoking Status: Former smoker Use of substances other than those prescribed or required for medical reasons: No Currently Displaying Signs/Symptoms of Drug Intoxication Withdrawal: No Have you been hit, kicked, punched, or otherwise hurt by someone within the past year? If so, by whom?: No Do you feel safe in your current relationship?: No Current Relationship Is there a partner from a previous relationship who is making you feel unsafe now?: No Are you made to feel afraid or neglected: No Advance Directives: No Advance Directives Information Provided: Yes Do you have thoughts of harming others: None Do you have a plan to hurt others: No Plan Recently lost weight without trying: No service: No Current occupational status: disabled Meds Allergies Allergy/AdvReac Type Severity Reaction Status Date / Time No Known Allergies Allergy Verified 02/26/20 20:53 [No Known Allergies*] Home Medications Medication Instructions Recorded Confirmed Type albuterol sulfate 2 puff INHALATION Q4H PRN 02/26/20 02/26/20 History atorvastatin 1 tab PO DAILY 02/26/20 02/26/20 History duloxetine 1 cap PO DAILY 02/26/20 02/26/20 History empagliflozin-metformin [Synjardy 2 tab PO DAILY 02/26/20 02/26/20 History XR] ezetimibe 1 tab PO DAILY 02/26/20 02/26/20 History fluticasone propionate [Flovent 2 puff INHALATION BID 02/26/20 02/26/20 History HFA] insulin degludec [Tresiba 30 unit SUBCUT DAILY 02/26/20 02/26/20 History FlexTouch U-200] insulin lispro [Humalog KwikPen 12 unit SUBCUT TIDAC 02/26/20 02/26/20 History Insulin] lisinopril-hydrochlorothiazide 1 tab PO DAILY 02/26/20 02/26/20 History mirtazapine 1 tab PO BEDTIME 02/26/20 02/26/20 History Physical Exam Vital Signs: Vital Signs: Last Vital Signs Temp 98.0 F 02/27/20 07:22 Pulse 80 02/27/20 07:22 Resp 18 02/27/20 07:22 BP 112/68 02/27/20 07:22 Pulse Ox 91 L 02/27/20 07:22 Body Mass Index 23.2 Const: General: cooperative, comfortable and no acute distress Orientation/consciousness: patient oriented x3 HENMT: Other: Unremarkable Neck: Neck: Yes normal visual inspection Chest: Chest palpation & inspection: normal inspection of the chest Resp: Auscultation: clear to auscultation bilaterally, no crackles and no wheezes Cardio: Jugular venous distension: no JVD Palpation: normal PMI Heart sounds: S1 normal heart sound present, S2 normal heart sound present, no gallops, Murmur heart sound present systolic II/ and at the right sternal border and no rubs GI: Palpation (GI): Soft to palpation Back/Spine/Pelvis: Other: unremarkable Skin: General skin exam: no rashes or lesions noted Neuro: General: patient oriented x3 Speech: No Abnormal speech present Extrem: General: Yes no clubbing, cyanosis or edema Psych: Mental Status: mental status grossly normal Results Labs and Meds Result diagrams: 02/27/20 04:14 02/27/20 04:14 Lab results: Laboratory Results - last 24 hr 02/26/20 02/26/20 02/26/20 12:37 12:37 12:37 WBC 16.2 H RBC 5.22 Hgb 14.8 Hct 44.8 MCV 85.8 MCH 28.4 MCHC 33.0 RDW 12.6 Plt Count 390 MPV 11.3 Immature Gran % (Auto) 1.4 H Neut % (Auto) 67.2 Lymph % (Auto) 25.0 [place] % (Auto) 5.3 Eos % (Auto) 0.6 Baso % (Auto) 0.5 Lymph # (Auto) 4.0 [place] # (Auto) 0.9 Eos # (Auto) 0.1 Baso # (Auto) 0.1 Abs Immat Gran (auto) 0.23 H Absolute Neuts (auto) 10.9 H Absolute Nucleated RBC 0.000 Nucleated RBC % (auto) 0.0 PT 10.5 L INR 0.9 APTT D-Dimer < 200 Sodium 129 L Potassium 4.6 Chloride 91 L Carbon Dioxide 25 Anion Gap 18 BUN 45 H Creatinine 1.35 Estim Creat Clear Calc 36.4 Estimated GFR 41 POC Glucose Random Glucose 492 H* Lactic Acid Lactic Acid Fup @ 2Hr Calcium 9.9 Magnesium 2.0 Ferritin 181 Total Bilirubin 0.5 Direct Bilirubin < 0.2 AST 10 ALT 9 Alkaline Phosphatase 88 Lactate Dehydrogenase 176 Troponin I High Sens Total Protein 6.1 L Albumin 3.3 L Triglycerides Cholesterol LDL Cholesterol, Calc HDL Cholesterol Procalcitonin Urine Color Urine Appearance Urine pH Ur Specific [place] Urine Protein Urine Glucose (UA) Urine Ketones Urine Blood Urine Nitrite Ur Leukocyte Esterase Urine RBC Urine WBC Ur Squamous Epith Cells Urine Bacteria Acetone, Qual Negative Coronavirus (PCR) Influenza Type A (PCR) Influenza Type B (PCR) RSV RNA Qual (PCR) 02/26/20 02/26/20 02/26/20 12:37 12:37 12:37 WBC RBC Hgb Hct MCV MCH MCHC RDW Plt Count MPV Immature Gran % (Auto) Neut % (Auto) Lymph % (Auto) [place] % (Auto) Eos % (Auto) Baso % (Auto) Lymph # (Auto) [place] # (Auto) Eos # (Auto) Baso # (Auto) Abs Immat Gran (auto) Absolute Neuts (auto) Absolute Nucleated RBC Nucleated RBC % (auto) PT INR APTT D-Dimer Sodium Potassium Chloride Carbon Dioxide Anion Gap BUN Creatinine Estim Creat Clear Calc Estimated GFR POC Glucose Random Glucose Lactic Acid 2.8 H* Lactic Acid Fup @ 2Hr Calcium Magnesium Ferritin Total Bilirubin Direct Bilirubin AST ALT Alkaline Phosphatase Lactate Dehydrogenase Troponin I High Sens 211.1 H Total Protein Albumin Triglycerides Cholesterol LDL Cholesterol, Calc HDL Cholesterol Procalcitonin 0.04 Urine Color Urine Appearance Urine pH Ur Specific [place] Urine Protein Urine Glucose (UA) Urine Ketones Urine Blood Urine Nitrite Ur Leukocyte Esterase Urine RBC Urine WBC Ur Squamous Epith Cells Urine Bacteria Acetone, Qual Coronavirus (PCR) Influenza Type A (PCR) Influenza Type B (PCR) RSV RNA Qual (PCR) 02/26/20 02/26/20 02/26/20 12:38 13:34 15:59 WBC RBC Hgb Hct MCV MCH MCHC RDW Plt Count MPV Immature Gran % (Auto) Neut % (Auto) Lymph % (Auto) [place] % (Auto) Eos % (Auto) Baso % (Auto) Lymph # (Auto) [place] # (Auto) Eos # (Auto) Baso # (Auto) Abs Immat Gran (auto) Absolute Neuts (auto) Absolute Nucleated RBC Nucleated RBC % (auto) PT INR APTT D-Dimer Sodium Potassium Chloride Carbon Dioxide Anion Gap BUN Creatinine Estim Creat Clear Calc Estimated GFR POC Glucose Random Glucose Lactic Acid Lactic Acid Fup @ 2Hr 1.8 Calcium Magnesium Ferritin Total Bilirubin Direct Bilirubin AST ALT Alkaline Phosphatase Lactate Dehydrogenase Troponin I High Sens Total Protein Albumin Triglycerides Cholesterol LDL Cholesterol, Calc HDL Cholesterol Procalcitonin Urine Color YELLOW Urine Appearance CLEAR Urine pH 5.5 Ur Specific [place] 1.015 Urine Protein NEG Urine Glucose (UA) >=1000 H Urine Ketones NEG Urine Blood NEG Urine Nitrite NEG Ur Leukocyte Esterase NEG Urine RBC 0 Urine WBC 0-2 Ur Squamous Epith Cells 1+ Urine Bacteria TRACE Acetone, Qual Coronavirus (PCR) NEGATIVE Influenza Type A (PCR) NEGATIVE Influenza Type B (PCR) NEGATIVE RSV RNA Qual (PCR) NEGATIVE 02/26/20 02/26/20 02/26/20 15:59 15:59 21:12 WBC RBC Hgb Hct MCV MCH MCHC RDW Plt Count MPV Immature Gran % (Auto) Neut % (Auto) Lymph % (Auto) [place] % (Auto) Eos % (Auto) Baso % (Auto) Lymph # (Auto) [place] # (Auto) Eos # (Auto) Baso # (Auto) Abs Immat Gran (auto) Absolute Neuts (auto) Absolute Nucleated RBC Nucleated RBC % (auto) PT INR APTT D-Dimer Sodium 131 L Potassium 4.2 Chloride 99 Carbon Dioxide 22 Anion Gap 14 BUN 42 H Creatinine 0.98 Estim Creat Clear Calc 50.2 Estimated GFR 60 POC Glucose > 600 H* Random Glucose 307 H D Lactic Acid Lactic Acid Fup @ 2Hr Calcium 8.7 D Magnesium Ferritin Total Bilirubin Direct Bilirubin AST ALT Alkaline Phosphatase Lactate Dehydrogenase Troponin I High Sens 312.1 H Total Protein Albumin Triglycerides Cholesterol LDL Cholesterol, Calc HDL Cholesterol Procalcitonin Urine Color Urine Appearance Urine pH Ur Specific [place] Urine Protein Urine Glucose (UA) Urine Ketones Urine Blood Urine Nitrite Ur Leukocyte Esterase Urine RBC Urine WBC Ur Squamous Epith Cells Urine Bacteria Acetone, Qual Coronavirus (PCR) Influenza Type A (PCR) Influenza Type B (PCR) RSV RNA Qual (PCR) 02/26/20 02/26/20 02/26/20 21:15 21:17 21:17 WBC 10.0 RBC 4.63 Hgb 13.0 Hct 39.8 MCV 86.0 MCH 28.1 MCHC 32.7 RDW 12.5 Plt Count 306 MPV 11.9 Immature Gran % (Auto) Neut % (Auto) Lymph % (Auto) [place] % (Auto) Eos % (Auto) Baso % (Auto) Lymph # (Auto) [place] # (Auto) Eos # (Auto) Baso # (Auto) Abs Immat Gran (auto) Absolute Neuts (auto) Absolute Nucleated RBC 0.000 Nucleated RBC % (auto) 0.0 PT 10.8 INR 0.9 APTT 37.4 D-Dimer Sodium 127 L Potassium 5.0 Chloride 97 Carbon Dioxide 21 L Anion Gap 14 BUN 46 H Creatinine 1.63 H Estim Creat Clear Calc 30.1 Estimated GFR 33 POC Glucose Random Glucose 706 H* Lactic Acid Lactic Acid Fup @ 2Hr Calcium 7.9 L D Magnesium Ferritin Total Bilirubin Direct Bilirubin AST ALT Alkaline Phosphatase Lactate Dehydrogenase Troponin I High Sens Total Protein Albumin Triglycerides Cholesterol LDL Cholesterol, Calc HDL Cholesterol Procalcitonin Urine Color Urine Appearance Urine pH Ur Specific [place] Urine Protein Urine Glucose (UA) Urine Ketones Urine Blood Urine Nitrite Ur Leukocyte Esterase Urine RBC Urine WBC Ur Squamous Epith Cells Urine Bacteria Acetone, Qual Coronavirus (PCR) Influenza Type A (PCR) Influenza Type B (PCR) RSV RNA Qual (PCR) 02/26/20 02/26/20 02/26/20 21:17 21:22 22:11 WBC RBC Hgb Hct MCV MCH MCHC RDW Plt Count MPV Immature Gran % (Auto) Neut % (Auto) Lymph % (Auto) [place] % (Auto) Eos % (Auto) Baso % (Auto) Lymph # (Auto) [place] # (Auto) Eos # (Auto) Baso # (Auto) Abs Immat Gran (auto) Absolute Neuts (auto) Absolute Nucleated RBC Nucleated RBC % (auto) PT INR APTT D-Dimer Sodium Potassium Chloride Carbon Dioxide Anion Gap BUN Creatinine Estim Creat Clear Calc Estimated GFR POC Glucose > 600 H* > 600 H* > 600 H* Random Glucose Lactic Acid Lactic Acid Fup @ 2Hr Calcium Magnesium Ferritin Total Bilirubin Direct Bilirubin AST ALT Alkaline Phosphatase Lactate Dehydrogenase Troponin I High Sens Total Protein Albumin Triglycerides Cholesterol LDL Cholesterol, Calc HDL Cholesterol Procalcitonin Urine Color Urine Appearance Urine pH Ur Specific [place] Urine Protein Urine Glucose (UA) Urine Ketones Urine Blood Urine Nitrite Ur Leukocyte Esterase Urine RBC Urine WBC Ur Squamous Epith Cells Urine Bacteria Acetone, Qual Coronavirus (PCR) Influenza Type A (PCR) Influenza Type B (PCR) RSV RNA Qual (PCR) 02/27/20 02/27/20 02/27/20 00:30 03:28 04:14 WBC RBC Hgb Hct MCV MCH MCHC RDW Plt Count MPV Immature Gran % (Auto) Neut % (Auto) Lymph % (Auto) [place] % (Auto) Eos % (Auto) Baso % (Auto) Lymph # (Auto) [place] # (Auto) Eos # (Auto) Baso # (Auto) Abs Immat Gran (auto) Absolute Neuts (auto) Absolute Nucleated RBC Nucleated RBC % (auto) PT INR APTT D-Dimer Sodium Potassium Chloride Carbon Dioxide Anion Gap BUN Creatinine Estim Creat Clear Calc Estimated GFR POC Glucose 502 H* 217 H Random Glucose Lactic Acid Lactic Acid Fup @ 2Hr Calcium Magnesium Ferritin Total Bilirubin Direct Bilirubin AST ALT Alkaline Phosphatase Lactate Dehydrogenase Troponin I High Sens Total Protein Albumin Triglycerides Cancelled Cholesterol Cancelled LDL Cholesterol, Calc Cancelled HDL Cholesterol Cancelled Procalcitonin Urine Color Urine Appearance Urine pH Ur Specific [place] Urine Protein Urine Glucose (UA) Urine Ketones Urine Blood Urine Nitrite Ur Leukocyte Esterase Urine RBC Urine WBC Ur Squamous Epith Cells Urine Bacteria Acetone, Qual Coronavirus (PCR) Influenza Type A (PCR) Influenza Type B (PCR) RSV RNA Qual (PCR) 02/27/20 02/27/20 02/27/20 04:14 04:14 06:13 WBC 12.5 H RBC 4.73 Hgb 13.2 Hct 40.3 MCV 85.2 MCH 27.9 MCHC 32.8 RDW 12.4 Plt Count 352 MPV 11.4 Immature Gran % (Auto) 1.5 H Neut % (Auto) 81.4 H Lymph % (Auto) 12.4 L [place] % (Auto) 4.6 Eos % (Auto) 0.0 Baso % (Auto) 0.1 Lymph # (Auto) 1.6 [place] # (Auto) 0.6 Eos # (Auto) 0.0 Baso # (Auto) 0.0 Abs Immat Gran (auto) 0.19 H Absolute Neuts (auto) 10.2 H Absolute Nucleated RBC 0.000 Nucleated RBC % (auto) 0.0 PT INR APTT D-Dimer Sodium 137 Potassium 4.0 Chloride 104 Carbon Dioxide 22 Anion Gap 15 BUN 51 H Creatinine 1.27 Estim Creat Clear Calc 38.7 Estimated GFR 44 POC Glucose 92 Random Glucose 135 H D Lactic Acid Lactic Acid Fup @ 2Hr Calcium 8.4 D Magnesium Ferritin Total Bilirubin Direct Bilirubin AST ALT Alkaline Phosphatase Lactate Dehydrogenase Troponin I High Sens Total Protein Albumin Triglycerides 717 Cholesterol 289 LDL Cholesterol, Calc TNP HDL Cholesterol 38 Procalcitonin Urine Color Urine Appearance Urine pH Ur Specific [place] Urine Protein Urine Glucose (UA) Urine Ketones Urine Blood Urine Nitrite Ur Leukocyte Esterase Urine RBC Urine WBC Ur Squamous Epith Cells Urine Bacteria Acetone, Qual Coronavirus (PCR) Influenza Type A (PCR) Influenza Type B (PCR) RSV RNA Qual (PCR) 02/27/20 07:24 WBC RBC Hgb Hct MCV MCH MCHC RDW Plt Count MPV Immature Gran % (Auto) Neut % (Auto) Lymph % (Auto) [place] % (Auto) Eos % (Auto) Baso % (Auto) Lymph # (Auto) [place] # (Auto) Eos # (Auto) Baso # (Auto) Abs Immat Gran (auto) Absolute Neuts (auto) Absolute Nucleated RBC Nucleated RBC % (auto) PT INR APTT D-Dimer Sodium Potassium Chloride Carbon Dioxide Anion Gap BUN Creatinine Estim Creat Clear Calc Estimated GFR POC Glucose 93 Random Glucose Lactic Acid Lactic Acid Fup @ 2Hr Calcium Magnesium Ferritin Total Bilirubin Direct Bilirubin AST ALT Alkaline Phosphatase Lactate Dehydrogenase Troponin I High Sens Total Protein Albumin Triglycerides Cholesterol LDL Cholesterol, Calc HDL Cholesterol Procalcitonin Urine Color Urine Appearance Urine pH Ur Specific [place] Urine Protein Urine Glucose (UA) Urine Ketones Urine Blood Urine Nitrite Ur Leukocyte Esterase Urine RBC Urine WBC Ur Squamous Epith Cells Urine Bacteria Acetone, Qual Coronavirus (PCR) Influenza Type A (PCR) Influenza Type B (PCR) RSV RNA Qual (PCR) EKG Interpretation EKG Comments: EKG with sinus rhythm at 90/Min. Nonspecific ST-T changes. Assessment and Plan (1) NSTEMI (non-ST elevated myocardial infarction): Status: Inactive Possibly secondary NSTEMI related to respiratory issues. She also has numerous risk factors including smoking, diabetes, dyslipidemia. We can keep her on Lovenox for 48 hours. Aspirin high-dose statins. Echocardiogram today. She will need ischemia workup which can be considered as an outpatient unless any marked abnormalities on echocardiogram.
--- NOTE | 2020-02-27 10:18 | P.PNIM_ITS ---
Subjective Subjective Date of Service: 02/27/20 Interval History: the patient was seen and evaluated this morning Laying in bed, feels comfortable Denies any fever, chills or shortness of breath No reported other overnight events. Systemic review: No fever, chills or weakness No chest pain, palpitation but has some chest tightness No shortness of breath or coughing but reporting wheezing No abdominal pain, nausea or vomiting No urinary symptoms No any rash or wounds Physical Exam Vital Signs: Vital Signs: Last Vital Signs Temp 98.0 F 02/27/20 07:22 Pulse 80 02/27/20 07:22 Resp 18 02/27/20 07:22 BP 112/68 02/27/20 07:22 Pulse Ox 91 L 02/27/20 07:22 Body Mass Index 23.2 Constitutional : Alert, oriented, not in distress Neck : Normal inspection, Supple Cardiovascular : RRR, S1 S2, no lower extremity edema, no chest wall tenderness Respiratory : Good bilateral air entry, no crackles, scattered fine wheezes Gastrointestinal: soft, lax, Normal bowel sounds, Non tender Skin : Warm/Dry, No rash Neurological : Alert & oriented x3, No focal deficit Objective Data Current Medications Generic Name Dose Route Start Last Admin Trade Name Freq PRN Reason Stop Dose Admin Acetaminophen 650 mg 02/26/20 19:39 02/26/20 22:23 Acetaminophen 325 Mg Tablet PO 650 mg Q6H PRN Administration Pain, Mild (Pain Scale 1-3) Albuterol Sulfate 2 puff 02/26/20 19:39 Albuterol Sulfate 90 Mcg 8 Gm Inhaler INHALE Q4H PRN Shortness Of Breath Or Wheezing Aspirin 81 mg 02/27/20 09:00 02/27/20 08:35 Aspirin 81 Mg Tab.Chew PO 81 mg DAILY DARIAN Administration Atorvastatin Calcium 80 mg 02/27/20 09:00 02/27/20 08:35 Atorvastatin Calcium 80 Mg Tablet PO 80 mg DAILY DARIAN Administration Duloxetine HCl 60 mg 02/27/20 09:00 02/27/20 08:36 Duloxetine Hcl 60 Mg Capsule.Dr PO 60 mg DAILY DARIAN Administration Ezetimibe 10 mg 02/27/20 09:00 02/27/20 08:35 Ezetimibe 10 Mg Tablet PO 10 mg DAILY DARIAN Administration Enoxaparin Sodium 50 mg 02/27/20 06:00 02/27/20 05:27 Enoxaparin Sodium 60 Mg/0.6 Ml Syringe SUBCUT 50 mg Q12H DARIAN Administration Insulin Glargine 21 unit 02/26/20 22:10 02/26/20 22:19 Insulin Glargine,Hum.Rec.Anlog 100 Unit/Ml 10 Ml Vial SUBCUT 21 unit DAILY DARIAN Administration Insulin Human Lispro 12 unit 02/27/20 07:30 02/27/20 08:33 Insulin Lispro 100 Unit/Ml 3 Ml Vial SUBCUT Not Given TIDAC [facility] Insulin Human Lispro 0 unit 02/26/20 21:00 02/27/20 08:33 Insulin Lispro 100 Unit/Ml 3 Ml Vial SUBCUT Not Given QIDACHS [facility] Protocol Mirtazapine 30 mg 02/26/20 21:00 02/26/20 21:56 Mirtazapine 30 Mg Tablet PO 30 mg BEDTIME DARIAN Administration Non-Formulary Medication 2 puff 02/26/20 21:00 Fluticasone Propionate [Flovent Hfa] INHALE BID [facility] Ondansetron HCl 4 mg 02/26/20 19:39 Ondansetron Hcl 4 Mg/2 Ml Vial IVPUSH Q8H PRN Nausea and Vomiting Pharmacy Consult 1 each 02/26/20 17:03 Consult Rx Perform Med Rec MISCELLANE ONCE PRN Consult order Sodium Chloride 3 ml 02/27/20 00:00 02/27/20 08:36 0.9 % Sodium Chloride Flush 3 Ml Syringe IVFLUSH Not Given QSHIFT [facility] Labs CBC & Chem 7: 02/27/20 04:14 02/27/20 04:14 Assessment and Plan (1) Elevated troponin: Status: Acute (2) Hypotension: Status: Acute (3) Headache: Status: Acute (4) Chest pain: Status: Acute Assessment and Plan: 50-year-old woman admitted with chest pain, headache and hypotension. NSTEMI No acute ischemic changes noticed on EKG or telemetry Significantly elevated troponin, trended down though Keep on telemetry History of NSTEMI with multiple risk factors and concerning story next Lyme to do echo Continue full-dose Lovenox for 48 hours Continue aspirin and statin cardiology input appreciated, might need further workup as outpatient after fi nishing 48 hours of Lovenox Headache Related to recent sinusitis and possibly from low blood pressure, resolved Hypotension Secondary to medications Will hold lisinopril/hydrochlorothiazide. Leukocytosis. Likely related to recent steroid use, no infection noted. Asthma. No exacerbation. Duo nebs as needed. Diabetes mellitus. Sliding scale, ADA diet. Continue Lantus home dose DVT prophylaxis therapeutic Lovenox
--- NOTE | 2020-02-27 11:00 | CA_ITS ---
Transthoracic Echocardiogram Patient (Last, First, Middle): Gala Medina, Gender: Female Date of : 1970 Age: 50 Procedure Date: 02/27/2020 Procedure Type: Transthoracic Echocardiogram [place] [facility] [place]: 149.86 cm Weight: 52.16 kg BSA: 1.46 m2 Heart Rate: bpm BP: 113 / 66 mmHg Optometric Aide: Referring MD: Michael Becker MD Symptoms: NSTEMI Study Quality: Good ECG Rhythm: Sinus Conclusions: - The left ventricular systolic function is normal. The visually estimated ejection fraction is between 60-65%. - There is moderately increased left ventricular wall thickness. - The basal inferior segment is hypokinetic. - There is mild mitral annular calcification. - Small plaque is seen in the ascending aorta. Findings Left Ventricle Normal left ventricular cavity size. There is moderately increased left ventricular wall thickness. The left ventricular systolic function is normal. The visually estimated ejection fraction is between 60-65%. There is no evidence of regional wall motion abnormalities. E/E prime ratio is between 8 and 15 consistent with indeterminate filling pressures. Evidence suggests grade I (mild) diastolic dysfunction. Wall Motion Rest Echo Findings The basal inferior segment is hypokinetic. Right Ventricle Normal right ventricular cavity size and systolic function. Atria The left atrium is normal in size. The right atrium is normal in size. Aortic Valve There is a normal trileaflet aortic valve. There is no aortic valve stenosis. There is no aortic valve regurgitation. Mitral Valve The posterior mitral leaflet has restricted mobility. There is mild mitral annular calcification. There is trace mitral valve regurgitation. There is no mitral valve stenosis. Pulmonic Valve The pulmonic valve was not well visualized. Tricuspid Valve Normal tricuspid valve structure. There is trace tricuspid valve regurgitation. The pulmonary artery systolic pressure is normal. Great Vessels The aortic annulus, sinuses of valsalva, and asc aorta are normal in size. Small plaque is seen in the ascending aorta. Venous The inferior vena cava is normal in size and collapses greater than 50% with inspiration. Pericardium/Pleural There is a trivial pericardial effusion. Prior Study Comparison No prior study available for comparison. Measurements 2D Linear Measurements IVSd: 1.35 0.6-0.9/0.6-1.0 cm LVIDd: 3.80 3.9-5.3/4.2-5.9 cm LVIDd Index: 2.60 2.4-3.2/2.2-3.1 cm/m2 LVIDs: 2.48 2.0-3.6 cm LVPWd: 1.34 0.7-1.1 cm Ao Root: 3.00 2.1-3.5 cm LA Diam: 3.20 2.7-3.8/3.0-4.0 cm LAIDs Index: 2.19 1.5-2.3 cm/m2 LV Mass: 227.23 67-162/88-224 g LV Mass Index: 155.63 43-95/49-115 g/m2 LVOT Diam: 1.90 3.0+(-)1.3 cm Mitral Valve MV Pk E: 0.68 MV PK A: 0.98 MV Decel Time: 225.00 E/A: 0.70 E'Lateral: 4.84 E'Medial: 4.84 E/E' Med: 14.10 E/E' Lat: 14.10 PHT: 66.00 MVA PHT: 3.33 Decel [place]: 3.03 Aortic Valve AoV Pk Ceasar: 1.73 AoV Mn Ceasar: 1.08 AoV VTI: 0.36 AoV Pk Grad: 12.00 Aov Mn Grad: 6.00 CAITLYN Cont.VTI: 2.00 LVOT LVOT Pk Ceasar: 0.92 LVOT Mn Ceasar: 0.57 LVOT VTI: 0.25 LVOT Pk Grad: 3.00 LVOT Mn Grad: 2.00 LVOT Diam: 1.90 LVOT Area: 2.84 Diastolic Function MV Pk E: 0.68 MV Pk A: 0.98 E/A: 0.70 E'Medial: 4.84 E/E' Med: 14.10 E' Laterial: 4.84 E/E' Lat: 14.10 Tricuspid Valve TR Pk Ceasar: 1.85 TR Pk Grad: 14.00 RA Press: 3.00 RVSP: 17.00 Great Vessels Aorta Ao Root-2D: 3.00 2.0-3.7 cm Pulmonary Valve PV Pk Ceasar: 0.91 Peak PV Grad: 3.00 Updated in Other Vendor System with Status of Final Michael Becker MD electronically signed on 02/27/2020 11:38:10 AM with status of Final
--- NOTE | 2020-02-27 11:39 | NM_ITS ---
Myocardial perfusion study Indication: Chest pressure with elevated troponins to evaluate for myocardial ischemia Technique: The patient was brought in for a Lexiscan perfusion study on 02/28/2020. Patient performed low-level exercise and was injected 0.4 mg of Lexiscan intravenously. Within a minute of injection, 25 mCi of sestamibi was given intravenously. Images were obtained using the SPECT gamma camera interlaced with the gating device. Images were obtained in supine position. Resting perfusion study was performed on 02/27/2020. Patient was administered 25 mCi of sestamibi intravenously at rest. Images were then obtained in supine position. Images obtained with and without CT attenuation. Total DLP 75 mGy-cm. Images were processed with the software and compared side to side in short axis, horizontal long axis and vertical long axis views. Findings: The stress perfusion study showed non attenuated images moderately large area of reduced uptake in mild intensity inferobasal and mid anterolateral and lateral as well as moderately reduced uptake in the distal lateral wall of the LV myocardium. There is also moderately reduced uptake in the distal anterior wall of the LV myocardium and moderately reduced uptake in the basal inferior wall of the LV myocardium attenuation corrected images are suboptimal due to technical reasons.. The gated study shows low normal LV systolic function with calculated LVEF of 50%. LV cavity is mildly to moderately size. The gated study shows normal wall thickening and contraction of segments. Resting study shows normal uptake of radiotracer in all segments of LV myocardium. Gating at rest reveals normal wall motion with ejection fraction at 50%. The findings are consistent with mild to moderate intensity anterolateral, distal anterior ischemia as well as moderate in the basal inferior ischemia. NM/NM abner perf SPECT rest & str Impression: 1. Myocardial perfusion imaging study shows multivessel territory ischemia in the LAD and RCA territory. 2. Gated LVEF is 50% 3. Transient ischemic dilatation present EKG is nondiagnostic for ischemia
[2020-02-27 12:11] LABS: Glucose, Whole Blood 167 mg/dL (60-115)
[2020-02-27] MEDS: Insulin Glargine,Hum.rec.anlog 100 UNIT/ML 10 ML VIAL 21 UNIT SUBCUT (12:13)
[2020-02-27] MEDS: Insulin Lispro 100 UNIT/ML 3 ML VIAL SUBCUT ×3 (12:14→21:09)
[2020-02-27] MEDS: Albuterol Sulfate 90 MCG 8 GM INHALER 2 PUFF INHALE (12:49)
[2020-02-27 16:30] LABS: Glucose, Whole Blood 221 mg/dL (60-115)
[2020-02-27] MEDS: Acetaminophen 325 MG TABLET 650 MG PO (17:27)
[2020-02-27] MEDS: 0.9 % Sodium Chloride Flush 3 ML SYRINGE IVFLUSH ×2 (17:28→21:09)
[2020-02-27 17:34] LABS: INTERNATIONAL NORM RATIO 0.8 (0.9-1.1); Prothrombin Time 9.7 SEC (10.8-13.0)
[2020-02-27] MEDS: traMADoL HCL 50 MG TABLET PO (19:56)
[2020-02-27] MEDS: Mirtazapine 30 MG TABLET PO (19:56)
[2020-02-27 21:10] LABS: Glucose, Whole Blood 178 mg/dL (60-115)
[2020-02-28] VITALS (12 sets, daily range): BP systolic 135–180; BP diastolic 64–90; PULSE 64–77; RESP 18; TEMP 36.5–37.1; O2SAT 95–100
--- NOTE | 2020-02-28 | CA_ITS ---
Acquisition Time: 2020-02-28 10:29:47 Total Exercise Time: 00:02:00 Test Indications: chest pressure Medications: Protocol: LEXISCAN Max HR: 110 BPM 65% of Pred: 169 BPM Max BP: 122/070 mmHG Max Work Load: 1.0 METS Pharmacological stress test using Lexiscan while sitting and kicking her feet. Albuterol given 2 puffs before beginning the test as she had inspiratory wheeze. Pt tolerated test well, denies any anginal sx. C/o of headache, sx reversed with Aminophyline 75 mg IV. EKG without any arrhythmias. Non-diagnostic for ischemia. Nuclear images to follow. Normotensive response to test. Test reviewed with Dr. Becker Referred By: Michael Becker Overread By: Marshal Fonseca
--- NOTE | 2020-02-28 | ECG_ITS ---
Test Reason : CHEST PAIN Blood Pressure : / mmHG Vent. Rate : 078 BPM Atrial Rate : 078 BPM P-R Int : 128 ms QRS Dur : 074 ms QT Int : 378 ms P-R-T Axes : 073 008 059 degrees QTc Int : 430 ms Normal sinus rhythm Possible Left atrial enlargement Borderline ECG Poor R progression anterior leads; No significant changes when compared with the previous EKG of 26 feb 2020 Referred By: Kris Fernandez Electronically Signed By:CJ NOLAND
[2020-02-28] MEDS: SUMAtriptan succinate 50 MG TABLET PO (00:11)
[2020-02-28] MEDS: hydrALAZINE HCl 20 MG/ML VIAL 5 MG IVPUSH (03:45)
[2020-02-28] MEDS: Enoxaparin Sodium 60 MG/0.6 ML SYRINGE 50 MG SUBCUT (05:12)
[2020-02-28 06:05] LABS: Hematocrit 38.7 % (37-47); Hemoglobin 12.6 g/dl (12.0-16.0); Mean Corpuscular HGB Conc 32.6 g/dl (31.0-35.0); Mean Corpuscular Hemoglobin 27.9 pg (27.0-33.0); Mean Corpuscular Volume 85.6 fL (80-98); Mean Platelet Volume 11.6 fL (9.4-12.3); Platelet Count 303 X10*3/uL (160-400); Red Blood Count 4.52 X10*6/uL (4.20-5.50); Red Cell Distribution Width 12.4 % (11.0-16.0); White Blood Count 18.7 X10*3/uL (4.8-10.8)
[2020-02-28 06:23] LABS: Anion Gap 11 (12-20); Blood Urea Nitrogen 37 mg/dL (9-16); Carbon Dioxide 23 mmol/L (22-29); Chloride 106 mmol/L (96-108); Creatinine Clr Calc Pharmacy 65.5; Estimated Glomerular Filt Rate > 60; Glucose Random 97 mg/dL (60-115); Potassium 3.9 mmol/l (3.3-5.1); Sodium 136 mmol/L (135-145)
[2020-02-28 07:38] LABS: Glucose, Whole Blood 91 mg/dL (60-115)
[2020-02-28] MEDS: Fluticasone Propionate 100 MCG BLST.W.DEV 1 PUFF INHALE ×2 (07:54→19:29)
[2020-02-28] MEDS: Aspirin 81 MG TAB.CHEW PO (08:27)
[2020-02-28] MEDS: DULoxetine HCl 60 MG CAPSULE.DR PO (08:27)
[2020-02-28] MEDS: hydroCHLOROthiazide 12.5 MG TABLET PO (08:27)
[2020-02-28] MEDS: Ezetimibe 10 MG TABLET PO (08:27)
[2020-02-28] MEDS: lisinopriL 10 MG TABLET PO (08:27)
[2020-02-28] MEDS: Atorvastatin Calcium 80 MG TABLET PO (08:27)
[2020-02-28] MEDS: 0.9 % Sodium Chloride Flush 3 ML SYRINGE IVFLUSH ×3 (08:28→20:10)
--- NOTE | 2020-02-28 09:56 | PM.PNCARD ---
Subjective Subjective Date of Service: 02/28/20 Interval history: Patient followed up regarding elevated troponins. She states that she feels okay. No anginal-type symptoms. Review of Systems Review of Systems Yes all other systems are reviewed and are negative Constitutional: Reports headache(s) and Reports weakness Denies dizziness and Reports headache(s) Cardiovascular: Reports as per HPI, Reports no additional cardiovascular complaints, Denies chest pain, Denies chest pain at rest, Denies chest pain with activity, Denies diaphoresis, Denies syncope, Denies rapid heart rate, Denies pedal edema, Denies irregular heart rhythm, Denies leg edema and Denies dyspnea Respiratory: Denies dyspnea Musculoskeletal: Denies numbness and Denies tingling Reports system reviewed and no additional complaints, except as documented, Denies Abnormal speech present, Denies dizziness, Denies syncope, Reports headache(s), Denies numbness, Denies tingling and Reports weakness Physical Exam Vital Signs: Last Vital Signs Temp 97.7 F 02/28/20 07:17 Pulse 77 02/28/20 08:27 Resp 18 02/28/20 07:17 BP 146/80 H 02/28/20 08:27 Pulse Ox 100 02/28/20 07:17 Body Mass Index 23.2 Const General: cooperative, comfortable and no acute distress Orientation/consciousness: patient oriented x3 HENMT Other: Unremarkable Neck Neck: Yes normal visual inspection Chest Chest palpation & inspection: normal inspection of the chest Resp Auscultation: clear to auscultation bilaterally, no crackles and no wheezes Cardio Jugular venous distension: no JVD Palpation: normal PMI Heart sounds: S1 normal heart sound present, S2 normal heart sound present, no gallops, Murmur heart sound present systolic II/ and at the right sternal border and no rubs GI Palpation (GI): Soft to palpation Back/Spine/Pelvis Other: unremarkable Skin General skin exam: no rashes or lesions noted Neuro General: patient oriented x3 Speech: No Abnormal speech present Extrem General: Yes no clubbing, cyanosis or edema Psych Mental Status: mental status grossly normal Results Labs and Meds Result diagrams: 02/28/20 05:21 02/28/20 05:21 Progress Note: A&P Assessment and plan (1) NSTEMI (non-ST elevated myocardial infarction): Status: Inactive Assessment and Plan: Possibly secondary NSTEMI related to respiratory issues. She also has numerous risk factors including smoking, diabetes, dyslipidemia. Also strong cardiac history in twin sister. Echocardiogram with preserved LVEF but basal inferior hypokinesis. We can proceed with a pharmacological stress test. Use Lovenox in total for 48 hours. Fall Risk Details Current Medications: Current Medications Generic Name Dose Route Start Last Admin Trade Name Freq PRN Reason Stop Dose Admin Acetaminophen 650 mg 02/26/20 19:39 02/27/20 17:27 Acetaminophen 325 Mg Tablet PO 650 mg Q6H PRN Administration Pain, Mild (Pain Scale 1-3) Albuterol Sulfate 2 puff 02/26/20 19:39 02/27/20 12:49 Albuterol Sulfate 90 Mcg 8 Gm Inhaler INHALE 2 puff Q4H PRN Administration Shortness Of Breath Or Wheezing Aspirin 81 mg 02/27/20 09:00 02/28/20 08:27 Aspirin 81 Mg Tab.Chew PO 81 mg DAILY [facility] Administration Atorvastatin Calcium 80 mg 02/27/20 09:00 02/28/20 08:27 Atorvastatin Calcium 80 Mg Tablet PO 80 mg DAILY [facility] Administration Duloxetine HCl 60 mg 02/27/20 09:00 02/28/20 08:27 Duloxetine Hcl 60 Mg Capsule.Dr PO 60 mg DAILY [facility] Administration Ezetimibe 10 mg 02/27/20 09:00 02/28/20 08:27 Ezetimibe 10 Mg Tablet PO 10 mg DAILY [facility] Administration Enoxaparin Sodium 50 mg 02/27/20 06:00 02/28/20 05:12 Enoxaparin Sodium 60 Mg/0.6 Ml Syringe SUBCUT 50 mg Q12H [facility] Administration Fluticasone Propionate 1 puff 02/28/20 08:00 02/28/20 07:54 Fluticasone Propionate 100 Mcg Blst.W.Dev INHALE 1 puff RBID [facility] Administration Hydrochlorothiazide 12.5 mg 02/28/20 09:00 02/28/20 08:27 Hydrochlorothiazide 12.5 Mg Tablet PO 12.5 mg DAILY [facility] Administration Insulin Glargine 21 unit 02/26/20 22:10 02/28/20 08:28 Insulin Glargine,Hum.Rec.Anlog 100 Unit/Ml 10 Ml Vial SUBCUT Not Given DAILY COUNT INCLUDES [facility] Insulin Human Lispro 0 unit 02/26/20 21:00 02/28/20 08:28 Insulin Lispro 100 Unit/Ml 3 Ml Vial SUBCUT Not Given QIDAS COUNT INCLUDES THE [facility] Protocol Lisinopril 10 mg 02/28/20 09:00 02/28/20 08:27 Lisinopril 10 Mg Tablet PO 10 mg DAILY [facility] Administration Mirtazapine 30 mg 02/26/20 21:00 02/27/20 19:56 Mirtazapine 30 Mg Tablet PO 30 mg BEDTIME [facility] Administration Ondansetron HCl 4 mg 02/26/20 19:39 Ondansetron Hcl 4 Mg/2 Ml Vial IVPUSH Q8H PRN Nausea and Vomiting Pharmacy Consult 1 each 02/26/20 17:03 Consult Rx Perform Med Rec MISCELLANE ONCE PRN Consult order Sodium Chloride 3 ml 02/27/20 00:00 02/28/20 08:28 0.9 % Sodium Chloride Flush 3 Ml Syringe IVFLUSH 3 ml QSHIFT [facility] Administration Time Spent With Patient Time: Total time spent is greater than 50% in coordination of care (as documented) at patient's floor/unit and/or counseling patient: Time with patient: less than 15 minutes
--- NOTE | 2020-02-28 11:22 | P.PNIM_ITS ---
Subjective Subjective Date of Service: 02/28/20 Interval History: the patient was seen and evaluated this morning Laying in bed, feels comfortable, denies any chest pain or palpitation No reported fever, chills or shortness of breath No reported other overnight events. Systemic review: No fever, chills or weakness No chest pain, palpitation, improved chest tightness No shortness of breath or coughing but reporting wheezing No abdominal pain, nausea or vomiting No urinary symptoms No any rash or wounds Physical Exam Vital Signs: Vital Signs: Last Vital Signs Temp 97.7 F 02/28/20 07:17 Pulse 77 02/28/20 08:27 Resp 18 02/28/20 07:17 BP 146/80 H 02/28/20 08:27 Pulse Ox 100 02/28/20 07:17 Body Mass Index 23.2 Constitutional : Alert, oriented, not in distress Neck : Normal inspection, Supple Cardiovascular : RRR, S1 S2, no lower extremity edema Respiratory : Good bilateral air entry, no crackles, wheezes or rhonchi Gastrointestinal: soft, lax, Normal bowel sounds, Non tender Skin : Warm/Dry, No rash Neurological : Alert & oriented x3, No focal deficit Objective Data Current Medications Generic Name Dose Route Start Last Admin Trade Name Freq PRN Reason Stop Dose Admin Acetaminophen 650 mg 02/26/20 19:39 02/27/20 17:27 Acetaminophen 325 Mg Tablet PO 650 mg Q6H PRN Administration Pain, Mild (Pain Scale 1-3) Albuterol Sulfate 2 puff 02/26/20 19:39 02/27/20 12:49 Albuterol Sulfate 90 Mcg 8 Gm Inhaler INHALE 2 puff Q4H PRN Administration Shortness Of Breath Or Wheezing Aspirin 81 mg 02/27/20 09:00 02/28/20 08:27 Aspirin 81 Mg Tab.Chew PO 81 mg DAILY [facility] Administration Atorvastatin Calcium 80 mg 02/27/20 09:00 02/28/20 08:27 Atorvastatin Calcium 80 Mg Tablet PO 80 mg DAILY [facility] Administration Duloxetine HCl 60 mg 02/27/20 09:00 02/28/20 08:27 Duloxetine Hcl 60 Mg Capsule.Dr PO 60 mg DAILY [facility] Administration Ezetimibe 10 mg 02/27/20 09:00 02/28/20 08:27 Ezetimibe 10 Mg Tablet PO 10 mg DAILY [facility] Administration Fluticasone Propionate 1 puff 02/28/20 08:00 02/28/20 07:54 Fluticasone Propionate 100 Mcg Blst.W.Dev INHALE 1 puff RBID [facility] Administration Hydrochlorothiazide 12.5 mg 02/28/20 09:00 02/28/20 08:27 Hydrochlorothiazide 12.5 Mg Tablet PO 12.5 mg DAILY [facility] Administration Insulin Glargine 21 unit 02/26/20 22:10 02/28/20 08:28 Insulin Glargine,Hum.Rec.Anlog 100 Unit/Ml 10 Ml Vial SUBCUT Not Given DAILY [facility] Insulin Human Lispro 0 unit 02/26/20 21:00 02/28/20 08:28 Insulin Lispro 100 Unit/Ml 3 Ml Vial SUBCUT Not Given QIDACHS [facility] Protocol Lisinopril 10 mg 02/28/20 09:00 02/28/20 08:27 Lisinopril 10 Mg Tablet PO 10 mg DAILY [facility] Administration Mirtazapine 30 mg 02/26/20 21:00 02/27/20 19:56 Mirtazapine 30 Mg Tablet PO 30 mg BEDTIME [facility] Administration Ondansetron HCl 4 mg 02/26/20 19:39 Ondansetron Hcl 4 Mg/2 Ml Vial IVPUSH Q8H PRN Nausea and Vomiting Pharmacy Consult 1 each 02/26/20 17:03 Consult Rx Perform Med Rec MISCELLANE ONCE PRN Consult order Sodium Chloride 3 ml 02/27/20 00:00 02/28/20 08:28 0.9 % Sodium Chloride Flush 3 Ml Syringe IVFLUSH 3 ml QSHIFT [facility] Administration Labs CBC & Chem 7: 02/28/20 05:21 02/28/20 05:21 Microbiology Microbiology Results: Microbiology 02/26/20 12:50 Blood - Venous Blood Culture - Preliminary No growth after 24 hours. 02/26/20 12:38 Blood - Venous Blood Culture - Preliminary No growth after 24 hours. Assessment and Plan (1) Elevated troponin: Status: Acute (2) Hypotension: Status: Acute (3) Headache: Status: Acute (4) Chest pain: Status: Acute Assessment and Plan: 50-year-old woman admitted with chest pain, headache and hypotension. NSTEMI History of NSTEMI with multiple risk factors Patient feels better today Echo concerning for wall motion abnormality Keep on telemetry To finish full-dose Lovenox for 48 hours Continue aspirin and statin cardiology input appreciated, for Lexiscan today Headache Related to recent sinusitis and possibly from low blood pressure, resolved Hypotension Resolved, Secondary to medications To decide after Lexiscan if beta-nelly needed or we can start small dose lisinopril Leukocytosis. related to receiving steroid in ED, no infection noted. Asthma. No exacerbation. Duo nebs as needed. Diabetes mellitus. Sliding scale, ADA diet. Continue Lantus home dose DVT prophylaxis therapeutic Lovenox (5) NSTEMI (non-ST elevated myocardial infarction): Status: Acute
[2020-02-28] MEDS: Butalb/Acetamin/Caff 50/325/40 TABLET 2 TAB PO (12:22)
[2020-02-28 12:26] LABS: Glucose, Whole Blood 169 mg/dL (60-115)
--- NOTE | 2020-02-28 13:04 | MHC.CM.PN ---
Patient is having a stress test done today. Discharge plan continues to be home no services, sister will provide transport. CM will continue to follow patient for discharge needs.
[2020-02-28] MEDS: Insulin Lispro 100 UNIT/ML 3 ML VIAL SUBCUT ×2 (13:20→20:16)
[2020-02-28] MEDS: ondansetron HCL 4 MG/2 ML VIAL IVPUSH (13:41)
[2020-02-28] MEDS: traMADoL HCL 50 MG TABLET PO (14:15)
[2020-02-28] MEDS: Magnesium Hydrox/Alum Hydrox 30 ML ORAL.SUSP PO (14:15)
[2020-02-28 16:36] LABS: Glucose, Whole Blood 169 mg/dL (60-115)
[2020-02-28] MEDS: Metoprolol Succinate ER 25 MG TAB.ER.24H PO (18:29)
[2020-02-28] MEDS: Ketorolac Tromethamine 15 MG/ML VIAL IVPUSH (20:07)
[2020-02-28] MEDS: Butalb/Acetamin/Caff 50/325/40 TABLET 1 TAB PO (20:07)
[2020-02-28] MEDS: Mirtazapine 30 MG TABLET PO (20:08)
[2020-02-28 20:15] LABS: Glucose, Whole Blood 178 mg/dL (60-115)
[2020-02-29 04:00] VITALS: BP 117/65; PULSE 65; RESP 18; TEMP 36.7; O2SAT 98
[2020-02-29 06:47] LABS: Hemoglobin 11.9 g/dl (12.0-16.0); Mean Corpuscular HGB Conc 32.2 g/dl (31.0-35.0); Mean Corpuscular Hemoglobin 28.2 pg (27.0-33.0); Mean Corpuscular Volume 87.7 fL (80-98); Mean Platelet Volume 11.8 fL (9.4-12.3); Platelet Count 267 X10*3/uL (160-400); Red Blood Count 4.22 X10*6/uL (4.20-5.50); Red Cell Distribution Width 12.5 % (11.0-16.0); White Blood Count 9.3 X10*3/uL (4.8-10.8)
[2020-02-29 07:09] VITALS: BP 136/76; PULSE 66; RESP 20; TEMP 37; O2SAT 98
[2020-02-29 07:18] LABS: Anion Gap 9 (12-20); Blood Urea Nitrogen 31 mg/dL (9-16); Calcium 7.8 mg/dL (8.4-10.2); Carbon Dioxide 27 mmol/L (22-29); Chloride 101 mmol/L (96-108); Creatinine Clr Calc Pharmacy 59.9; Estimated Glomerular Filt Rate > 60; Glucose Random 302 mg/dL (60-115); Potassium 4.4 mmol/l (3.3-5.1); Sodium 133 mmol/L (135-145)
[2020-02-29 07:50] LABS: Glucose, Whole Blood 314 mg/dL (60-115)
[2020-02-29] MEDS: Fluticasone Propionate 100 MCG BLST.W.DEV 1 PUFF INHALE (08:04)
[2020-02-29 08:05] VITALS: PULSE 65; O2SAT 98
[2020-02-29] MEDS: Insulin Glargine,Hum.rec.anlog 100 UNIT/ML 10 ML VIAL 21 UNIT SUBCUT (08:52)
[2020-02-29] MEDS: Insulin Lispro 100 UNIT/ML 3 ML VIAL SUBCUT (08:54)
[2020-02-29] MEDS: Aspirin 81 MG TAB.CHEW PO (09:21)
[2020-02-29] MEDS: 0.9 % Sodium Chloride Flush 3 ML SYRINGE IVFLUSH (09:21)
[2020-02-29] MEDS: Atorvastatin Calcium 80 MG TABLET PO (09:21)
[2020-02-29] MEDS: Ezetimibe 10 MG TABLET PO (09:21)
[2020-02-29] MEDS: DULoxetine HCl 60 MG CAPSULE.DR PO (09:21)
[2020-02-29 09:22] VITALS: BP 136/76; PULSE 66
[2020-02-29] MEDS: Metoprolol Succinate ER 25 MG TAB.ER.24H PO (09:22)
[2020-02-29] MEDS: hydroCHLOROthiazide 12.5 MG TABLET PO (09:22)
--- NOTE | 2020-02-29 09:43 | PM.PNCARD ---
Subjective Subjective Date of Service: 02/29/20 Interval history: Patient states that she feels okay. No chest pain or other concerning symptoms at this time. Review of Systems Review of Systems Yes all other systems are reviewed and are negative Constitutional: Reports headache(s) and Reports weakness Denies dizziness and Reports headache(s) Cardiovascular: Reports as per HPI, Reports no additional cardiovascular complaints, Denies Abdominal Distension, Denies chest pain, Denies chest pain at rest, Denies diaphoresis, Denies syncope, Denies pedal edema, Denies edema, Denies irregular heart rhythm, Denies claudication, Denies leg ulcers, Denies leg edema, Denies lightheadedness, Denies Loss of Consciousness, Denies dyspnea, Denies dyspnea on exertion and Denies orthopnea Respiratory: Denies dyspnea and Denies dyspnea on exertion Musculoskeletal: Denies numbness and Denies tingling Reports system reviewed and no additional complaints, except as documented, Denies Abnormal speech present, Denies dizziness, Denies syncope, Reports headache(s), Denies numbness, Denies tingling and Reports weakness Physical Exam Vital Signs: Last Vital Signs Temp 98.6 F 02/29/20 07:09 Pulse 66 02/29/20 09:22 Resp 20 02/29/20 07:09 BP 136/76 02/29/20 09:22 Pulse Ox 98 02/29/20 07:09 Body Mass Index 23.2 Const General: cooperative, comfortable and no acute distress Orientation/consciousness: patient oriented x3 HENMT Other: Unremarkable Neck Neck: Yes normal visual inspection Chest Chest palpation & inspection: normal inspection of the chest Resp Auscultation: clear to auscultation bilaterally, no crackles and no wheezes Cardio Jugular venous distension: no JVD Palpation: normal PMI Heart sounds: S1 normal heart sound present, S2 normal heart sound present, no gallops, Murmur heart sound present systolic II/ and at the right sternal border and no rubs GI Palpation (GI): Soft to palpation Back/Spine/Pelvis Other: unremarkable Skin General skin exam: no rashes or lesions noted Neuro General: patient oriented x3 Speech: No Abnormal speech present Extrem General: Yes no clubbing, cyanosis or edema Psych Mental Status: mental status grossly normal Results Labs and Meds Result diagrams: 02/29/20 05:27 02/29/20 05:27 Progress Note: A&P Assessment and plan (1) NSTEMI (non-ST elevated myocardial infarction): Status: Inactive Assessment and Plan: Study shows suggestion of ischemia in the LAD as well as RCA territory. She has numerous risk factors. She will need a diagnostic cardiac catheterization which can reschedule next few days. We can keep her on aspirin, high-dose statins, beta-blockers. Discharge planning. Advised to avoid any stenosis physical activity. Follow-up will be arranged the next 3-4 days. Fall Risk Details Current Medications: Current Medications Generic Name Dose Route Start Last Admin Trade Name Freq PRN Reason Stop Dose Admin Acetaminophen 650 mg 02/26/20 19:39 02/27/20 17:27 Acetaminophen 325 Mg Tablet PO 650 mg Q6H PRN Administration Pain, Mild (Pain Scale 1-3) Acetaminophen/Butalbital/Caffeine 1 tab 02/28/20 19:55 02/28/20 20:07 Butalb/Acetamin/Caff 50/325/40 Tablet PO 1 tab Q4H PRN Administration Migraine Headache Albuterol Sulfate 2 puff 02/26/20 19:39 02/27/20 12:49 Albuterol Sulfate 90 Mcg 8 Gm Inhaler INHALE 2 puff Q4H PRN Administration Shortness Of Breath Or Wheezing Aspirin 81 mg 02/27/20 09:00 02/29/20 09:21 Aspirin 81 Mg Tab.Chew PO 81 mg DAILY [facility] Administration Atorvastatin Calcium 80 mg 02/27/20 09:00 02/29/20 09:21 Atorvastatin Calcium 80 Mg Tablet PO 80 mg DAILY [facility] Administration Duloxetine HCl 60 mg 02/27/20 09:00 02/29/20 09:21 Duloxetine Hcl 60 Mg Capsule.Dr PO 60 mg DAILY [facility] Administration Ezetimibe 10 mg 02/27/20 09:00 02/29/20 09:21 Ezetimibe 10 Mg Tablet PO 10 mg DAILY [facility] Administration Fluticasone Propionate 1 puff 02/28/20 08:00 02/29/20 08:04 Fluticasone Propionate 100 Mcg Blst.W.Dev INHALE 1 puff RBID [facility] Administration Hydrochlorothiazide 12.5 mg 02/28/20 09:00 02/29/20 09:22 Hydrochlorothiazide 12.5 Mg Tablet PO 12.5 mg DAILY [facility] Administration Insulin Glargine 21 unit 02/26/20 22:10 02/29/20 08:52 Insulin Glargine,Hum.Rec.Anlog 100 Unit/Ml 10 Ml Vial SUBCUT 21 unit DAILY [facility] Administration Insulin Human Lispro 0 unit 02/26/20 21:00 02/29/20 08:54 Insulin Lispro 100 Unit/Ml 3 Ml Vial SUBCUT 8 unit QIDACHS [facility] Administration Protocol Metoprolol Succinate 25 mg 02/28/20 16:15 02/29/20 09:22 Metoprolol Succinate Er 25 Mg Tab.Er.24h PO 25 mg DAILY [facility] Administration Protocol Mirtazapine 30 mg 02/26/20 21:00 02/28/20 20:08 Mirtazapine 30 Mg Tablet PO 30 mg BEDTIME [facility] Administration Ondansetron HCl 4 mg 02/26/20 19:39 02/28/20 13:41 Ondansetron Hcl 4 Mg/2 Ml Vial IVPUSH 4 mg Q8H PRN Administration Nausea and Vomiting Pharmacy Consult 1 each 02/26/20 17:03 Consult Rx Perform Med Rec MISCELLANE ONCE PRN Consult order Sodium Chloride 3 ml 02/27/20 00:00 02/29/20 09:21 0.9 % Sodium Chloride Flush 3 Ml Syringe IVFLUSH 3 ml QSHIFT [facility] Administration Time Spent With Patient Time: Total time spent is greater than 50% in coordination of care (as documented) at patient's floor/unit and/or counseling patient: Time with patient: 15 - 24 minutes
--- NOTE | 2020-02-29 11:04 | P.DS_ITS ---
DS: Providers Provider Date of admission: 02/26/20 18:55 Primary care physician: Unknown Physician Consults: 02/26/20 19:39 Consult to Cardiology Routine Consulting Provider: Michael Becker Reason for consultation: chest pressure Has provider been notified: No DS: Diagnosis Discharge Diagnosis (1) NSTEMI (non-ST elevated myocardial infarction): Status: Inactive DS: Medications Discharge Medications Home Medications: Home Medications Medication Instructions Recorded Confirmed Flovent HFA 2 puff INHALATION BID 02/26/20 02/26/20 Synjardy XR 2 tab PO DAILY 02/26/20 02/26/20 Tresiba FlexTouch U-200 30 unit SUBCUT DAILY 02/26/20 02/26/20 albuterol sulfate 2 puff INHALATION Q4H PRN 02/26/20 02/26/20 atorvastatin 1 tab PO DAILY 02/26/20 02/26/20 duloxetine 1 cap PO DAILY 02/26/20 02/26/20 ezetimibe 1 tab PO DAILY 02/26/20 02/26/20 insulin lispro [Humalog KwikPen 12 unit SUBCUT TIDAC 02/26/20 02/26/20 Insulin] mirtazapine 1 tab PO BEDTIME 02/26/20 02/26/20 Previous Rx's Medication Instructions Recorded aspirin 81 mg PO DAILY #30 tab 02/29/20 lisinopril 5 mg PO DAILY #30 tab 02/29/20 metoprolol succinate 25 mg PO DAILY #30 tab 02/29/20 DS: Summary Hospital Course Hospital Course: Admission note HPI 50 year old women presenting with chest pressure and headache. She reported that her symptoms started on Wednesday. She was seen by her PCP on Wednesday and was found to be hypertensive. Her BP medication was changed. Today her BP was noted to be in the 90's systolic. She started having a headache yesterday. She also had chest pressure that started two days ago with radiation to her neck and back. She also reported some vomiting and diarrhea on wednesday. She denies SOB, fever, chills, recent travel or improperly cooked foods. She has a history of NSTEMI and PE. Was noted to be elevated troponin 211 with repeat of 312. No acute ischemic EKG changes noted. White blood cell count of 16.2 blood glucose of 492, lactic acid 2.8. For any consolidation or pulmonary embolus. IV fluids, insulin, IV magnesium and therapeutic Lovenox. To be admitted for further management and treatment of chest pressure possibly related to NSTEMI, hypotension. Hospital course Patient was admitted to telemetry unit and diagnosed to have secondary non ST- elevation DE related to respiratory issues patient has multiple risk factors for coronary artery disease including smoking, diabetes, dyslipidemia, patient was treated with Lovenox for 48 hours was placed on aspirin and beta blockers and echocardiogram was obtained that revealed anterior lateral, distal anterior and basal inferior hypokinesis, patient was closely evaluated by Dr. Becker he will arrange for outpatient further workup. Patient underwent Lexiscan stress test during stress part patient had no anginal symptoms however nuclear images were positive for multiple areas of moderately reduced uptake. Patient has had no further bout of chest pain since she is hemodynamically stable she has been discharged home on aspirin statins and beta-nelly. Headache resolved was likely due to hypotension. In regard to other medical issues recommend to continue oral hypoglycemics and insulin. Time Spent with Patient Time attestation: Total time spent providing and/or coordinating discharge services: Physical Exam Vital Signs: Vital Signs: Last Vital Signs Temp 98.6 F 02/29/20 07:09 Pulse 66 02/29/20 09:22 Resp 20 02/29/20 07:09 BP 136/76 02/29/20 09:22 Pulse Ox 98 02/29/20 07:09 Body Mass Index 23.2 General patient resting comfortably in no acute distress. Neck is supple no JVD. CVS regular rate rhythm, systolic murmur Respiratory lungs clear to auscultation, no respiratory distress, no wheeze, no rhonchi. Gastrointestinal abdomen soft, nontender, bowel sounds audible, no guarding , no rigidity. Extremities no clubbing cyanosis or edema. Neuro nonfocal Skin no rash DS: Data Data Completed and Pending Labs on day of discharge: 02/29/20 07:46 Glucose, Whole Blood Routine Laboratory Last Values WBC 9.3 X10*3/uL (4.8-10.8) 02/29/20 05:27 RBC 4.22 X10*6/uL (4.20-5.50) 02/29/20 05:27 Hgb 11.9 g/dl (12.0-16.0) L 02/29/20 05:27 Hct 37.0 % (37-47) 02/29/20 05:27 MCV 87.7 fL (80-98) 02/29/20 05:27 MCH 28.2 pg (27.0-33.0) 02/29/20 05:27 MCHC 32.2 g/dl (31.0-35.0) 02/29/20 05:27 RDW 12.5 % (11.0-16.0) 02/29/20 05:27 Plt Count 267 X10*3/uL (160-400) 02/29/20 05:27 MPV 11.8 fL (9.4-12.3) 02/29/20 05:27 Immature Gran % (Auto) 1.5 % (0.0-0.4) H 02/27/20 04:14 Neut % (Auto) 81.4 % (45-73) H 02/27/20 04:14 Lymph % (Auto) 12.4 % (20-40) L 02/27/20 04:14 [place] % (Auto) 4.6 % (2-11) 02/27/20 04:14 Eos % (Auto) 0.0 % (0-4) 02/27/20 04:14 Baso % (Auto) 0.1 % (0-2) 02/27/20 04:14 Lymph # (Auto) 1.6 X10*3/uL (1.2-4.9) 02/27/20 04:14 [place] # (Auto) 0.6 X10*3/uL (0.1-1.2) 02/27/20 04:14 Eos # (Auto) 0.0 X10*3/uL (0.0-0.4) 02/27/20 04:14 Baso # (Auto) 0.0 X10*3/uL (0.0-0.2) 02/27/20 04:14 Abs Immat Gran (auto) 0.19 X10*3/uL (0.00-0.03) H 02/27/20 04:14 Absolute Neuts (auto) 10.2 X10*3/uL (2.0-8.3) H 02/27/20 04:14 Absolute Nucleated RBC 0.000 X10*3/uL (0.0-0.012) 02/29/20 05:27 Nucleated RBC % (auto) 0.0 /100WBC (0.0-0.2) 02/29/20 05:27 PT 9.7 SEC (10.8-13.0) L 02/27/20 17:14 INR 0.8 (0.9-1.1) L 02/27/20 17:14 APTT 37.4 SEC (24.1-38.0) 02/26/20 21:17 D-Dimer < 200 NG/ML 02/26/20 12:37 Sodium 133 mmol/L (135-145) L 02/29/20 05:27 Potassium 4.4 mmol/l (3.3-5.1) 02/29/20 05:27 Chloride 101 mmol/L (96-108) 02/29/20 05:27 Carbon Dioxide 27 mmol/L (22-29) 02/29/20 05:27 Anion Gap 9 (12-20) L 02/29/20 05:27 BUN 31 mg/dL (9-16) H 02/29/20 05:27 Creatinine 0.82 mg/dL (0.5-1.4) 02/29/20 05:27 Estim Creat Clear Calc 59.9 02/29/20 05:27 Estimated GFR > 60 02/29/20 05:27 POC Glucose 314 mg/dL (60-115) H 02/29/20 07:46 Random Glucose 302 mg/dL (60-115) H D 02/29/20 05:27 Lactic Acid 2.8 mmol/L (0.5-2.0) H* 02/26/20 12:37 Lactic Acid Fup @ 2Hr 1.8 mmol/L (0.5-2.0) 02/26/20 15:59 Calcium 7.8 mg/dL (8.4-10.2) L 02/29/20 05:27 Magnesium 2.0 mg/dL (1.6-2.6) 02/26/20 12:37 Ferritin 181 ng/mL (10-250) 02/26/20 12:37 Total Bilirubin 0.5 mg/dL (0.0-1.0) 02/26/20 12:37 Direct Bilirubin < 0.2 mg/dL (0.0-0.5) 02/26/20 12:37 AST 10 U/L (5-31) 02/26/20 12:37 ALT 9 U/L (0-31) 02/26/20 12:37 Alkaline Phosphatase 88 U/L (39-117) 02/26/20 12:37 Lactate Dehydrogenase 176 U/L (122-220) 02/26/20 12:37 Troponin I High Sens 312.1 ng/L (<3.5-17.0) H 02/26/20 15:59 Total Protein 6.1 g/dL (6.5-8.0) L 02/26/20 12:37 Albumin 3.3 g/dL (3.5-5.0) L 02/26/20 12:37 Triglycerides 717 mg/dL 02/27/20 04:14 Triglycerides Cancelled 02/27/20 04:14 Cholesterol 289 mg/dL 02/27/20 04:14 Cholesterol Cancelled 02/27/20 04:14 LDL Cholesterol, Calc Cancelled 02/27/20 04:14 LDL Cholesterol, Calc TNP 02/27/20 04:14 HDL Cholesterol 38 mg/dL 02/27/20 04:14 HDL Cholesterol Cancelled 02/27/20 04:14 Procalcitonin 0.04 ng/mL 02/26/20 12:37 Urine Color YELLOW 02/26/20 13:34 Urine Appearance CLEAR 02/26/20 13:34 Urine pH 5.5 (5.0-8.0) 02/26/20 13:34 Ur Specific [place] 1.015 (1.005-1.025) 02/26/20 13:34 Urine Protein NEG MG/DL (NEG-TRACE) 02/26/20 13:34 Urine Glucose (UA) >=1000 MG/DL (NEG) H 02/26/20 13:34 Urine Ketones NEG MG/DL (NEG) 02/26/20 13:34 Urine Blood NEG (NEG) 02/26/20 13:34 Urine Nitrite NEG (NEG) 02/26/20 13:34 Ur Leukocyte Esterase NEG (NEG) 02/26/20 13:34 Urine RBC 0 /HPF (0) 02/26/20 13:34 Urine WBC 0-2 /HPF (0-4) 02/26/20 13:34 Ur Squamous Epith Cells 1+ /LPF 02/26/20 13:34 Urine Bacteria TRACE /LPF 02/26/20 13:34 Acetone, Qual Negative (Negative) 02/26/20 12:37 Coronavirus (PCR) NEGATIVE (Negative) 02/26/20 12:38 Influenza Type A (PCR) NEGATIVE (Negative) 02/26/20 12:38 Influenza Type B (PCR) NEGATIVE (Negative) 02/26/20 12:38 RSV RNA Qual (PCR) NEGATIVE (Negative) 02/26/20 12:38 Preliminary micro results at discharge 02/26/20 12:50 Blood Culture - Preliminary Blood - Venous No growth after 48 hours. 02/26/20 12:38 Blood Culture - Preliminary Blood - Venous No growth after 48 hours. Discharge Plan Discharge Patient Disposition: Home, Self-Care Discharge Medications: New lisinopril 5 mg tablet 5 mg PO DAILY Qty: 30 RF: 0 metoprolol succinate 25 mg Tablet Extended Release 24 Hr 25 mg PO DAILY Qty: 30 RF: 0 aspirin 81 mg Tablet,Chewable 81 mg PO DAILY Qty: 30 RF: 0 Continued atorvastatin 80 mg tablet 1 tab PO DAILY RF: 0 mirtazapine 30 mg tablet,disintegrating 1 tab PO BEDTIME RF: 0 albuterol sulfate 90 mcg/actuation HFA aerosol inhaler 2 puff inhalation Q4H PRN (Reason: Shortness Of Breath Or Wheezing) RF: 0 insulin lispro [Humalog KwikPen Insulin] 100 unit/mL insulin pen 12 unit subcut TIDAC RF: 0 duloxetine 60 mg capsule,delayed release(DR/EC) 1 cap PO DAILY RF: 0 Tresiba FlexTouch U-200 200 unit/mL (3 mL) insulin pen 30 unit subcut DAILY RF: 0 Flovent HFA 44 mcg/actuation HFA aerosol inhaler 2 puff inhalation BID RF: 0 Synjardy XR 12.5-1,000 mg tablet, IR - ER, biphasic 24hr 2 tab PO DAILY RF: 0 ezetimibe 10 mg tablet 1 tab PO DAILY RF: 0 Discontinued lisinopril-hydrochlorothiazide 10-12.5 mg tablet 1 tab PO DAILY RF: 0 Discharge Orders: Discharge Order (Routine); Ordered 02/29/20 Ordered By: Roberto Vargas Diet: diabetic diet and low fat, low cholesterol Activity on Discharge: No heavy lifting Visit Report Forms: Patient Portal Discharge page Care Plan Goals: Follow diabetic and low-cholesterol diet take all medications as prescribed Health Concerns: Follow-up with cardiology for further treatment Plan of Treatment: Follow-up with primary care physician and Cardiology
--- NOTE | 2020-02-29 11:47 | MHC.CM.PN ---
Pt will DC home today with no services pts family will provide transport
== END 2020-02-29 12:15 | disposition home or self-care (01) | DRG 281 ==
LOC: HO.ED 17:08 → HO.IMC 19:17
PROVIDERS: Internal Medicine; Nurse Practitioner Acute Care; Nurse Practitioner Family; Student in an Organized Health Care Education/Training Program; Admitting Provider Hospitalist; Emergency Provider Emergency Medicine; Visit Provider Hospitalist
DX: I21.A1 Myocardial infarction type 2 (principal); J45.41 Moderate persistent asthma with (acute) exacerbation; E87.2 Acidosis; E78.5 Hyperlipidemia, unspecified; I10 Essential (primary) hypertension; Z86.718 Personal history of other venous thrombosis and embolism; I95.9 Hypotension, unspecified; D72.829 Elevated white blood cell count, unspecified; I25.2 Old myocardial infarction; F17.210 Nicotine dependence, cigarettes, uncomplicated; Z71.6 Tobacco abuse counseling; Z20.828 Contact with and (suspected) exposure to other viral communicable diseases; Z79.4 Long term (current) use of insulin; Z79.899 Other long term (current) drug therapy
CPT/HCPCS: 0241U; 36415; 71045; 71275; 78452; 80048; 80061; 80076; 81001; 82009; 82728; 82947; 83605; 83615; 83735; 84145; 84484; 85025; 85027; 85379; 85610; 85730; 87040; 93005; 93017; 93306; 96365; 96372; 96375; 99285; A9500; J0280; J1650; J1885; J2405; J2785; J2930; J3475; Q9967

== ENCOUNTER → 2020-03-04 11:07 | Outpatient (BNVA) | payer MEDICAID, SELFPAY | PROVIDERS: Visit Provider Nurse Practitioner Family | DX: R07.9 Chest pain, unspecified (principal); I25.10 Atherosclerotic heart disease of native coronary artery without angina pectoris; I21.4 Non-ST elevation (NSTEMI) myocardial infarction; R77.8 Other specified abnormalities of plasma proteins; I10 Essential (primary) hypertension; E78.5 Hyperlipidemia, unspecified; E11.9 Type 2 diabetes mellitus without complications; F17.200 Nicotine dependence, unspecified, uncomplicated | CPT/HCPCS: 93005 ==

== ENCOUNTER 2020-03-04 12:21 | Emergency (ER) | payer MEDICAID, SELFPAY ==
--- NOTE | 2020-03-04 12:24 | XR_ITS ---
EXAMINATION: XR CHEST CLINICAL INFORMATION: Chest pain. COMPARISON: Chest 02/26/2020 TECHNIQUE: Frontal view of the chest was obtained. FINDINGS: No significant abnormality is noted involving the heart, lungs, mediastinum, bony thorax or soft tissues. XR/XR chest 1V IMPRESSION: Unremarkable chest examination.
--- NOTE | 2020-03-04 12:24 | ECG_ITS ---
Test Reason : CP Blood Pressure : / mmHG Vent. Rate : 075 BPM Atrial Rate : 075 BPM P-R Int : 144 ms QRS Dur : 084 ms QT Int : 380 ms P-R-T Axes : 064 004 092 degrees QTc Int : 424 ms Normal sinus rhythm Possible Left atrial enlargement Poor R wave progression Abnormal ECG When compared with ECG of 28-FEB-2020 14:01, No significant change was found Referred By: Ruth Garza Electronically Signed By:Eriberto Richards
--- NOTE | 2020-03-04 12:25 | ED_ITS ---
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 Dr. Richards involved and plan to cath tomorrow at some time whether inpatient or outpatient MD complaint: chest pain, chest heaviness and chest discomfort Pertinent past history: coronary artery disease Onset (ago): week(s) (2) Timing of current episode: episodic Prior episodes: Yes Onset: during rest and during exertion Pain location: substernal and left chest Pain radiation: none Severity: similar to previous episodes Quality: tightness and heaviness Relieving factors: nothing Exacerbating factors: exertion and movement Context: recent illness Associated symptoms: dyspnea Treatment prior to arrival: aspirin Related Data Home Medications Medication Instructions Recorded Confirmed Flovent HFA 2 puff INHALATION BID 02/26/20 03/04/20 Synjardy XR 2 tab PO DAILY 02/26/20 03/04/20 Tresiba FlexTouch U-200 30 unit SUBCUT DAILY 02/26/20 03/04/20 albuterol sulfate 2 puff INHALATION Q4H PRN 02/26/20 03/04/20 atorvastatin 1 tab PO DAILY 02/26/20 03/04/20 duloxetine 1 cap PO DAILY 02/26/20 03/04/20 ezetimibe 1 tab PO DAILY 02/26/20 03/04/20 insulin lispro [Humalog KwikPen 12 unit SUBCUT TIDAC 02/26/20 03/04/20 Insulin] mirtazapine 1 tab PO BEDTIME 02/26/20 03/04/20 Previous Rx's Medication Instructions Recorded aspirin 81 mg PO DAILY #30 tab 02/29/20 lisinopril 5 mg PO DAILY #30 tab 02/29/20 metoprolol succinate 25 mg PO DAILY #30 tab 02/29/20 Allergies Allergy/AdvReac Type Severity Reaction Status Date / Time No Known Allergies Allergy Verified 03/04/20 12:50 [No Known Allergies*] Review of Systems Review of Systems: Constitutional : No Weight loss, No Fever, No Chills ENT/Mouth : No sore throat, No Rhinorrhea Eyes: No Eye Pain, No Swelling Cardiovascular : pos Chest Pain, pos SOB, no Dyspnea on Exertion, No Orthopnea, No Edema, No Palpitations Respiratory : No Cough, No Sputum Gastrointestinal : no Nausea, No Vomiting, No Diarrhea, No abdominal Pain, No Hematochezia, No Melena Genitourinary : No Dysuria, No Urinary Frequency Musculoskeletal : No joint pain, No Myalgias, No Joint Swelling Skin : No Skin Lesions, No rash Neuro : No Weakness, No Numbness, No Dizziness, No Headache Psych : No Anxiety/Panic, No Depression Heme/Lymph: No Bruising, No Lymphadenopathy Endocrine : No Polyuria, No Polydipsia All other systems reviewed and are negative [facility] Past Medical History Attestation statement: The following information was validated with the patient. Source: old records reviewed Medical History Anxiety Asthma CAD (coronary artery disease) Depression Diabetes Hyperlipidemia Hypertension NSTEMI (non-ST elevated myocardial infarction) Family History Family History Sister No problems noted. Social History Social History Household Members: None Housing: House Alcohol intake: never Smoking Status: Current every day smoker service: No Current occupational status: disabled Physical Exam Vital Signs: Vital Signs: Last Vital Signs Temp 98.2 F 03/04/20 12:47 Pulse 78 03/04/20 12:47 Resp 18 03/04/20 13:27 BP 123/74 03/04/20 12:47 Pulse Ox 99 03/04/20 12:47 Body Mass Index 25.3 Appearance: Alert. Oriented X3. No acute distress. On Facetime Eyes: Pupils equal, round and reactive to light. ENT: Pharynx normal. Neck: Normal inspection. Neck supple. CVS: Normal heart rate and rhythm. Pulses normal. Chest: ttp along L sternum and left pectoralis Respiratory: No respiratory distress. Breath sounds normal. Abdomen: Soft and non-tender. Skin: Skin warm and dry. Normal skin color. Normal skin turgor. Extremities: No lower extremity edema. No calf ttp Neuro: Oriented X 3. No motor deficit. No sensory deficit. Course Course Course Narrative: TTE on 02/26 LVEF normal 60-65%, moderately increased left ventricular wall thickness, basal inferior segment is hypokinetic nuclear images 02/26 multivessel territory ischemia in LAD and RCA CTA on 02/26 negative for PE initial troponin 13.2 Cardiology aware, will give insulin for elevated BS troponin 13.2 with pain x 2 weeks - discussed with Dr. Richards plan to cath tomorrow can send home no need for repeat troponin at this time MDM - Chest Pain MDM Narrative Medical decision making narrative: 50 yo female with recent asthma exacerbation with chest pain and trop in 300s - had positive stress test in LAD and RCA ter jass 02/26 sent by cardiology for recurrent chest pain and plan for catheterization tomorrow - will need labs, CXR< IV morphine for pain, pain is somewhat resp driven from asthma coughing and is reproduceable chest wall pain at times - took her ASA today at home, will discuss with Cardiology once results returned. Lab Data Result diagrams: 03/04/20 13:24 03/04/20 13:24 Labs: Lab Results 03/04/20 03/04/20 03/04/20 Range/Units 13:08 13:24 13:24 WBC 11.4 H (4.8-10.8) X10*3/uL RBC 4.53 (4.20-5.50) X10*6/uL Hgb 12.7 (12.0-16.0) g/dl Hct 39.4 (37-47) % MCV 87.0 (80-98) fL MCH 28.0 (27.0-33.0) pg MCHC 32.2 (31.0-35.0) g/dl RDW 12.4 (11.0-16.0) % Plt Count 281 (160-400) X10*3/uL MPV 11.0 (9.4-12.3) fL Immature Gran % (Auto) 1.0 H (0.0-0.4) % Neut % (Auto) 66.3 (45-73) % Lymph % (Auto) 25.3 (20-40) % [place] % (Auto) 6.1 (2-11) % Eos % (Auto) 1.0 (0-4) % Baso % (Auto) 0.3 (0-2) % Lymph # (Auto) 2.9 (1.2-4.9) X10*3/uL [place] # (Auto) 0.7 (0.1-1.2) X10*3/uL Eos # (Auto) 0.1 (0.0-0.4) X10*3/uL Baso # (Auto) 0.0 (0.0-0.2) X10*3/uL Abs Immat Gran (auto) 0.12 H (0.00-0.03) X10*3/uL Absolute Neuts (auto) 7.6 (2.0-8.3) X10*3/uL Absolute Nucleated RBC 0.000 (0.0-0.012) X10*3/uL Nucleated RBC % (auto) 0.0 (0.0-0.2) /100WBC PT 10.0 L (10.8-13.0) SEC INR 0.8 L (0.9-1.1) APTT 33.7 (24.1-38.0) SEC Sodium (135-145) mmol/L Potassium (3.3-5.1) mmol/l Chloride (96-108) mmol/L Carbon Dioxide (22-29) mmol/L Anion Gap (12-20) BUN (9-16) mg/dL Creatinine (0.5-1.4) mg/dL Estim Creat Clear Calc Estimated GFR Random Glucose (60-115) mg/dL Calcium (8.4-10.2) mg/dL Magnesium (1.6-2.6) mg/dL Total Bilirubin (0.0-1.0) mg/dL Direct Bilirubin (0.0-0.5) mg/dL AST (5-31) U/L ALT (0-31) U/L Alkaline Phosphatase (39-117) U/L Troponin I High Sens (<3.5-17.0) ng/L Total Protein (6.5-8.0) g/dL Albumin (3.5-5.0) g/dL Lipase (8-78) U/L COVID-19 (TIANA) Negative (Negative) COVID-19 Clin Com See Note 03/04/20 03/04/20 Range/Units 13:24 13:24 WBC (4.8-10.8) X10*3/uL RBC (4.20-5.50) X10*6/uL Hgb (12.0-16.0) g/dl Hct (37-47) % MCV (80-98) fL MCH (27.0-33.0) pg MCHC (31.0-35.0) g/dl RDW (11.0-16.0) % Plt Count (160-400) X10*3/uL MPV (9.4-12.3) fL Immature Gran % (Auto) (0.0-0.4) % Neut % (Auto) (45-73) % Lymph % (Auto) (20-40) % [place] % (Auto) (2-11) % Eos % (Auto) (0-4) % Baso % (Auto) (0-2) % Lymph # (Auto) (1.2-4.9) X10*3/uL [place] # (Auto) (0.1-1.2) X10*3/uL Eos # (Auto) (0.0-0.4) X10*3/uL Baso # (Auto) (0.0-0.2) X10*3/uL Abs Immat Gran (auto) (0.00-0.03) X10*3/uL Absolute Neuts (auto) (2.0-8.3) X10*3/uL Absolute Nucleated RBC (0.0-0.012) X10*3/uL Nucleated RBC % (auto) (0.0-0.2) /100WBC PT (10.8-13.0) SEC INR (0.9-1.1) APTT (24.1-38.0) SEC Sodium 135 (135-145) mmol/L Potassium 4.5 (3.3-5.1) mmol/l Chloride 100 (96-108) mmol/L Carbon Dioxide 28 (22-29) mmol/L Anion Gap 12 (12-20) BUN 20 H (9-16) mg/dL Creatinine 1.26 (0.5-1.4) mg/dL Estim Creat Clear Calc 40.5 Estimated GFR 45 Random Glucose 434 H* (60-115) mg/dL Calcium 8.6 D (8.4-10.2) mg/dL Magnesium 2.1 (1.6-2.6) mg/dL Total Bilirubin 0.2 (0.0-1.0) mg/dL Direct Bilirubin < 0.2 (0.0-0.5) mg/dL AST 11 (5-31) U/L ALT 23 (0-31) U/L Alkaline Phosphatase 95 (39-117) U/L Troponin I High Sens 13.2 D (<3.5-17.0) ng/L Total Protein 6.0 L (6.5-8.0) g/dL Albumin 3.4 L (3.5-5.0) g/dL Lipase 45 (8-78) U/L COVID-19 (TIANA) (Negative) COVID-19 Clin Com ECG Data ECG #1: Attestation: I personally reviewed and interpreted this ECG as follows: ECG interpretation date: 03/04/20 ECG interpretation time: 12:36 Interpretation: Rate: 75 Rhythm: NSR [place]: left Normal P waves. Normal MARCOS. Normal QRS complex. poor R wave progression ST T wave : nonspecific no LOYDA qTC: normal prior studies: no acute ischemia The study has been interpreted contemporaneously by me. . Discharge Plan Discharge Clinical Impression: Chest pain Qualifiers: Chest pain type: unspecified Qualified Code(s): R07.9 - Chest pain, unspecified CAD (coronary artery disease) Qualifiers: Coronary Disease-Associated Artery/Lesion type: unspecified vessel or lesion type [place] vs. transplanted heart: unspecified whether [place] or transplanted heart Associated angina: angina presence unspecified Qualified Code(s): I25.10 - Atherosclerotic heart disease of [place] coronary artery without angina pectoris Patient Disposition: Home, Self-Care Instructions: Coronary Artery Disease (DC), Chest Pain (ED) Additional Instructions: return to ED for any worsening symptoms or concerns Cardiology will plan for an outpatient cardiac catheterization this week for you. Prescriptions: No Action atorvastatin 80 mg tablet 1 tab PO DAILY RF: 0 mirtazapine 30 mg tablet,disintegrating 1 tab PO BEDTIME RF: 0 albuterol sulfate 90 mcg/actuation HFA aerosol inhaler 2 puff inhalation Q4H PRN (Reason: Shortness Of Breath Or Wheezing) RF: 0 insulin lispro [Humalog KwikPen Insulin] 100 unit/mL insulin pen 12 unit subcut TIDAC RF: 0 duloxetine 60 mg capsule,delayed release(DR/EC) 1 cap PO DAILY RF: 0 Tresiba FlexTouch U-200 200 unit/mL (3 mL) insulin pen 30 unit subcut DAILY RF: 0 Flovent HFA 44 mcg/actuation HFA aerosol inhaler 2 puff inhalation BID RF: 0 Synjardy XR 12.5-1,000 mg tablet, IR - ER, biphasic 24hr 2 tab PO DAILY RF: 0 ezetimibe 10 mg tablet 1 tab PO DAILY RF: 0 lisinopril 5 mg tablet 5 mg PO DAILY Qty: 30 RF: 0 metoprolol succinate 25 mg Tablet Extended Release 24 Hr 25 mg PO DAILY Qty: 30 RF: 0 aspirin 81 mg Tablet,Chewable 81 mg PO DAILY Qty: 30 RF: 0 Referrals: Eriberto Richards MD [Physician] - 1 day
[2020-03-04 12:47] VITALS: BP 123/74; PULSE 78; RESP 18; TEMP 36.8; O2SAT 99; BMI 25.3
[2020-03-04 13:27] VITALS: RESP 18
[2020-03-04] MEDS: ondansetron HCL 4 MG/2 ML VIAL IVPUSH (13:27)
[2020-03-04] MEDS: Morphine Sulfate 4 MG/ML CARTRIDGE IVPUSH (13:27)
[2020-03-04 13:29] LABS: COVID-19 Test Negative (Negative); IDNOW Serial# 9DD0AD1C
[2020-03-04 13:30] LABS: MANUAL DIFF FLAG NO
[2020-03-04 13:31] LABS: Basophils Percent Auto 0.3 % (0-2); Eosinophils Absolute Auto 0.1 X10*3/uL (0.0-0.4); Hematocrit 39.4 % (37-47); Hemoglobin 12.7 g/dl (12.0-16.0); Imm Gran Abs Auto 0.12 X10*3/uL (0.00-0.03); Lymphocytes Absolute Auto 2.9 X10*3/uL (1.2-4.9); Lymphocytes Percent Auto 25.3 % (20-40); Mean Corpuscular HGB Conc 32.2 g/dl (31.0-35.0); Monocytes Absolute Auto 0.7 X10*3/uL (0.1-1.2); Monocytes Percent Auto 6.1 % (2-11); Neutrophils Absolute Auto 7.6 X10*3/uL (2.0-8.3); Neutrophils Percent Auto 66.3 % (45-73); Platelet Count 281 X10*3/uL (160-400); Red Blood Count 4.53 X10*6/uL (4.20-5.50); Red Cell Distribution Width 12.4 % (11.0-16.0); White Blood Count 11.4 X10*3/uL (4.8-10.8)
--- NOTE | 2020-03-04 13:35 | PC.NURSE ---
pt a&ox3, iv inserted, labs drawn, covid swab performed, ekg performed, singing waiter or waitress applied, vss, pt currently watching tv and talking on phone, will continue to monitor.
[2020-03-04 13:39] LABS: INTERNATIONAL NORM RATIO 0.8 (0.9-1.1)
[2020-03-04 13:41] LABS: Partial Thromboplastin Time 33.7 SEC (24.1-38.0)
[2020-03-04 14:13] LABS: Troponin-I High Sensitivity 13.2 ng/L (<3.5-17.0)
[2020-03-04 14:22] LABS: Alanine Aminotransferase 23 U/L (0-31); Albumin Level 3.4 g/dL (3.5-5.0); Alkaline Phosphatase 95 U/L (39-117); Anion Gap 12 (12-20); Aspartate Amino Transferase 11 U/L (5-31); Bilirubin Direct < 0.2 mg/dL (0.0-0.5); Bilirubin Total 0.2 mg/dL (0.0-1.0); Blood Urea Nitrogen 20 mg/dL (9-16); Calcium 8.6 mg/dL (8.4-10.2); Carbon Dioxide 28 mmol/L (22-29); Chloride 100 mmol/L (96-108); Creatinine Clr Calc Pharmacy 40.5; Estimated Glomerular Filt Rate 45; Glucose Random 434 mg/dL (60-115); Lipase 45 U/L (8-78); Magnesium 2.1 mg/dL (1.6-2.6); Potassium 4.5 mmol/l (3.3-5.1); Sodium 135 mmol/L (135-145)
[2020-03-04 15:23] VITALS: BP 117/66; PULSE 78; RESP 18; TEMP 36.8; O2SAT 97
[2020-03-04] MEDS: Insulin Regular, Human 100 UNIT/ML 3 ML VIAL IVPUSH (15:23)
== END 2020-03-04 16:13 | disposition home or self-care (01) ==
PROVIDERS: Emergency Provider Emergency Medicine
DX: I25.10 Atherosclerotic heart disease of native coronary artery without angina pectoris (principal); Z20.828 Contact with and (suspected) exposure to other viral communicable diseases; I25.2 Old myocardial infarction; E11.9 Type 2 diabetes mellitus without complications; I10 Essential (primary) hypertension; F17.200 Nicotine dependence, unspecified, uncomplicated; Z79.82 Long term (current) use of aspirin; Z79.4 Long term (current) use of insulin
CPT/HCPCS: 36415; 71045; 80048; 80076; 83690; 83735; 84484; 85025; 85610; 85730; 87635; 93005; 96374; 96375; 99284; J2270; J2405

== ENCOUNTER → 2020-03-19 10:37 | Outpatient (BNVA) | payer OTHER, SELFPAY | PROVIDERS: Visit Provider Nurse Practitioner Family | DX: I25.10 Atherosclerotic heart disease of native coronary artery without angina pectoris (principal); I10 Essential (primary) hypertension; E78.5 Hyperlipidemia, unspecified; Z95.1 Presence of aortocoronary bypass graft; Z98.890 Other specified postprocedural states; E11.9 Type 2 diabetes mellitus without complications; I48.91 Unspecified atrial fibrillation; I97.89 Other postprocedural complications and disorders of the circulatory system, not elsewhere classified | CPT/HCPCS: 99212 ==

== ENCOUNTER 2020-07-01 16:11 | Emergency (ER) | payer MEDICAID, SELFPAY ==
--- NOTE | ~2020-07-01 | XR_ITS ---
EXAMINATION: XR CHEST CLINICAL INFORMATION: Chest pain COMPARISON: March 04, 2020 TECHNIQUE: AP portable view of the chest was obtained. FINDINGS: Patient status post median sternotomy and CABG. There is no evidence of acute parenchymal disease, pneumothorax, or pleural effusion. Heart normal size. No evidence of pulmonary edema. XR/XR chest 1V IMPRESSION: No acute disease.
[2020-07-01 16:33] VITALS: BP 139/63; PULSE 50; RESP 18; TEMP 36.6; O2SAT 99; BMI 27.8
--- NOTE | 2020-07-01 16:36 | ECG_ITS ---
Test Reason : CHEST PAIN Blood Pressure : / mmHG Vent. Rate : 058 BPM Atrial Rate : 058 BPM P-R Int : 186 ms QRS Dur : 090 ms QT Int : 468 ms P-R-T Axes : 070 026 064 degrees QTc Int : 459 ms Sinus bradycardia Possible Left atrial enlargement Borderline ECG When compared with ECG of 04-MAR-2020 12:31, No significant change was found Referred By: Generic ED Physician Electronically Signed By:CJ NOLAND
[2020-07-01 17:26] LABS: MANUAL DIFF FLAG NO
[2020-07-01 17:28] LABS: Basophils Absolute Auto 0.1 X10*3/uL (0.0-0.2); Basophils Percent Auto 0.5 % (0-2); Eosinophils Absolute Auto 0.1 X10*3/uL (0.0-0.4); Eosinophils Percent Auto 1.1 % (0-4); Hematocrit 38.6 % (37-47); Hemoglobin 12.8 g/dl (12.0-16.0); Imm Gran Abs Auto 0.07 X10*3/uL (0.00-0.03); Imm Gran Pct Auto 0.8 % (0.0-0.4); Lymphocytes Absolute Auto 2.1 X10*3/uL (1.2-4.9); Lymphocytes Percent Auto 22.8 % (20-40); Mean Corpuscular HGB Conc 33.2 g/dl (31.0-35.0); Mean Corpuscular Hemoglobin 27.6 pg (27.0-33.0); Mean Corpuscular Volume 83.2 fL (80-98); Monocytes Absolute Auto 0.6 X10*3/uL (0.1-1.2); Monocytes Percent Auto 6.2 % (2-11); Neutrophils Absolute Auto 6.3 X10*3/uL (2.0-8.3); Neutrophils Percent Auto 68.6 % (45-73); Platelet Count 336 X10*3/uL (160-400); Red Blood Count 4.64 X10*6/uL (4.20-5.50); Red Cell Distribution Width 14.5 % (11.0-16.0); White Blood Count 9.2 X10*3/uL (4.8-10.8)
[2020-07-01 17:56] LABS: Anion Gap 15 (12-20); Blood Urea Nitrogen 47 mg/dL (9-16); Calcium 9.4 mg/dL (8.4-10.2); Carbon Dioxide 23 mmol/L (22-29); Chloride 100 mmol/L (96-108); Creatinine Clr Calc Pharmacy 32.6; Estimated Glomerular Filt Rate 33; Glucose Random 508 mg/dL (60-115); Potassium 4.9 mmol/L (3.3-5.1); Sodium 133 mmol/L (135-145)
[2020-07-01 18:00] LABS: Troponin-I High Sensitivity 18.7 ng/L (<3.5-17.0)
[2020-07-01 18:22] VITALS: BP 167/76; PULSE 56; RESP 19; TEMP 36.8; O2SAT 98
[2020-07-01 18:38] LABS: Glucose, Whole Blood 400 mg/dL (60-115)
[2020-07-01] MEDS: 0.9 % Sodium Chloride 1,000 ML 999 ML IV (18:56)
--- NOTE | 2020-07-01 19:00 | ED.CHESTPAIN ---
HPI - Chest Pain General Chief Complaint: Chest Pain Stated Complaint: Chest pain Time Seen by Provider: 07/01/20 19:00 Source: patient Mode of arrival: ambulatory Limitations: no limitations History of Present Illness HPI narrative: 50-year-old female history of coronary artery disease, patient had coronary artery bypass surgery in February about 4 weeks ago, patient received a sad news of her twin sister does today, patient has been complaining of chest pain for the past 2 weeks, patient also was worried that that chest incision would open up and she also was had to hold her pressed together to prevent the incision from opening, however the incision appear clean and intact and healing well on the exam. Patient describes the pain as involving the whole entire anterior chest, no radiation, pain is constant dull aching pain, nothing make it worse, nothing make it better. Related Data Home Medications Medication Instructions Recorded Confirmed Flovent HFA 2 puff INHALATION BID 02/26/20 03/04/20 Synjardy XR 2 tab PO DAILY 02/26/20 03/04/20 Tresiba FlexTouch U-200 30 unit SUBCUT DAILY 02/26/20 03/04/20 albuterol sulfate 2 puff INHALATION Q4H PRN 02/26/20 03/19/20 atorvastatin 1 tab PO DAILY 02/26/20 03/19/20 duloxetine 1 cap PO DAILY 02/26/20 03/04/20 insulin lispro [Humalog KwikPen 12 unit SUBCUT TIDAC 02/26/20 03/04/20 Insulin] mirtazapine 1 tab PO BEDTIME 02/26/20 03/04/20 amiodarone 200 mg tablet 200 mg PO BID 03/19/20 03/19/20 clopidogrel 75 mg tablet 75 mg PO DAILY 03/19/20 03/19/20 furosemide 40 mg tablet 40 mg PO DAILY 03/19/20 03/19/20 metoprolol succinate 50 mg 50 mg PO DAILY 03/19/20 03/19/20 tablet,extended release 24 hr pantoprazole 40 mg tablet,delayed 40 mg PO DAILY 03/19/20 03/19/20 release thiamine HCl (vitamin B1) 100 mg 100 mg PO DAILY 03/19/20 03/19/20 tablet Previous Rx's Medication Instructions Recorded aspirin 81 mg PO DAILY #30 tab 02/29/20 Allergies Allergy/AdvReac Type Severity Reaction Status Date / Time No Known Allergies Allergy Verified 03/04/20 12:50 [No Known Allergies*] Review of Systems Review of Systems: All other systems are reviewed and are negative Constitutional: Reports as per HPI and Reports no additional constitutional complaints Eyes: Reports as per HPI and Reports no additional eye complaints Reports system reviewed and no additional complaints, except as documented Cardiovascular: Reports as per HPI and Reports no additional cardiovascular complaints Respiratory: Reports as per HPI and Reports no additional respiratory complaints Gastrointestinal: Reports as per HPI and Reports no additional gastrointestinal complaints Genitourinary: Reports no additional female genitourinary complaints Musculoskeletal: Reports no additional musculoskeletal complaints Skin/Breast: Reports system reviewed and no additional complaints, except as docu Psychiatric: Reports no additional psychiatric complaints Endocrine: Reports no additional endocrine complaints Hematologic/Lymphatic: Reports no additional hematologic/lymphatic complaints Allergic/Immunologic: Reports no additional allergic/immunologic complaints Reports system reviewed and no additional complaints, except as documented and Reports Abnormal speech present [facility] Past Medical History Medical History Anxiety Asthma CAD (coronary artery disease) Depression Diabetes Hyperlipidemia Hypertension NSTEMI (non-ST elevated myocardial infarction) Postoperative atrial fibrillation Surgical History S/P CABG x 3 (~02/2020) S/P cardiac cath Family History Family History Sister Coronary arteriography abnormal ESRD (end stage renal disease) PAF (paroxysmal atrial fibrillation) Social History Social History Household Members: None Housing: House Alcohol intake: never Smoking Status: Never smoker Smoked in Last 30 Days: No Use of substances other than those prescribed or required for medical reasons: No Advance Directives: No Advance Directives Information Provided: No service: No Current occupational status: disabled Physical Exam Vital Signs: Vital Signs: Last Vital Signs Temp 97.9 F 07/01/20 19:54 Pulse 63 07/01/20 19:54 Resp 18 07/01/20 19:54 BP 168/77 H 07/01/20 19:54 Pulse Ox 99 07/01/20 19:54 Body Mass Index 27.8 Vital signs have been reviewed as appeared to be correct. Blood pressure normal. Heart rate normal. Respiration rate normal. Temperature normal. Oxygen saturation normal. Appearance: Alert. Oriented X3. No acute distress. Head: Normal external exam. Normocephalic. Atraumatic. No Velasquez signs noted. No raccoon eyes noted Eyes: PERRLA. EOMI. Conjunctiva and sclera normal. Eyelids normal. ENT: TM's Normal. Pharynx normal. Uvula midline. Moist mucous membranes. No trismus noted. No drooling noted. No muffled voice noted. Neck: Normal inspection. Neck supple. FROM. No adenopathy. Thyroid Normal. No meningeal signs. No neck mass noted. CVS: Normal heart rate and rhythm. Heart sound normal. No murmurs noted. Pulses normal throughout. Respiratory: No respiratory distress. Painless inspiration. Breath sounds normal. No wheezes/rales/rhonchi noted. Chest nontender. No accessory muscle usage noted or decreased air movement noted. Abdomen: Soft and nontender. Bowel sounds normal in all 4 quadrants. No distention noted. No organomegaly noted. No visible injury noted. Back: No CVA tenderness. Full range of motion noted. Skin: Skin warm and dry. Normal skin color. Normal skin turgor. No rashes/lesions/lacerations noted. Extremities: No lower extremity edema. Extremities exhibit normal range of motion. Extremities nontender. Neuro: Oriented X 3. No motor deficit. No sensory deficit. Reflexes normal. Course Course Course Narrative: Assessment and plan. 50-year-old female with history of coronary artery disease, patient status post coronary artery bypass surgery 4 months ago, patient started to have chest pain after getting sad news today ( of her twin sister). Patient while in the ED had 2 troponin with 3 hours apart which is not diagnostic for ACS. More of detailed history indicating that patient chest pain is likely due to incision on the chest wall after the surgery. Patient was instructed to follow up with the cardiac surgeon/PCP. MDM - Chest Pain Lab Data Attestation: I reviewed the patient's lab results. Result diagrams: 07/01/20 17:03 07/01/20 17:03 Labs: Lab Results 07/01/20 07/01/20 07/01/20 Range/Units 17:02 17:03 17:03 WBC 9.2 (4.8-10.8) X10*3/uL RBC 4.64 (4.20-5.50) X10*6/uL Hgb 12.8 (12.0-16.0) g/dl Hct 38.6 (37-47) % MCV 83.2 (80-98) fL MCH 27.6 (27.0-33.0) pg MCHC 33.2 (31.0-35.0) g/dl RDW 14.5 (11.0-16.0) % Plt Count 336 (160-400) X10*3/uL MPV 12.0 (9.4-12.3) fL Immature Gran % (Auto) 0.8 H (0.0-0.4) % Neut % (Auto) 68.6 (45-73) % Lymph % (Auto) 22.8 (20-40) % [place] % (Auto) 6.2 (2-11) % Eos % (Auto) 1.1 (0-4) % Baso % (Auto) 0.5 (0-2) % Lymph # (Auto) 2.1 (1.2-4.9) X10*3/uL [place] # (Auto) 0.6 (0.1-1.2) X10*3/uL Eos # (Auto) 0.1 (0.0-0.4) X10*3/uL Baso # (Auto) 0.1 (0.0-0.2) X10*3/uL Abs Immat Gran (auto) 0.07 H (0.00-0.03) X10*3/uL Absolute Neuts (auto) 6.3 (2.0-8.3) X10*3/uL Absolute Nucleated RBC 0.000 (0.0-0.012) X10*3/uL Nucleated RBC % (auto) 0.0 (0.0-0.2) /100WBC Hold Purple Top Hold Blue Top SEE NOTE Sodium (135-145) mmol/L Potassium (3.3-5.1) mmol/L Chloride (96-108) mmol/L Carbon Dioxide (22-29) mmol/L Anion Gap (12-20) BUN (9-16) mg/dL Creatinine (0.5-1.4) mg/dL Estim Creat Clear Calc Estimated GFR POC Glucose (60-115) mg/dL Random Glucose (60-115) mg/dL Calcium (8.4-10.2) mg/dL Troponin I High Sens 18.7 H (<3.5-17.0) ng/L Acetone, Qual (Negative) 07/01/20 07/01/20 07/01/20 Range/Units 17:03 18:21 18:34 WBC (4.8-10.8) X10*3/uL RBC (4.20-5.50) X10*6/uL Hgb (12.0-16.0) g/dl Hct (37-47) % MCV (80-98) fL MCH (27.0-33.0) pg MCHC (31.0-35.0) g/dl RDW (11.0-16.0) % Plt Count (160-400) X10*3/uL MPV (9.4-12.3) fL Immature Gran % (Auto) (0.0-0.4) % Neut % (Auto) (45-73) % Lymph % (Auto) (20-40) % [place] % (Auto) (2-11) % Eos % (Auto) (0-4) % Baso % (Auto) (0-2) % Lymph # (Auto) (1.2-4.9) X10*3/uL [place] # (Auto) (0.1-1.2) X10*3/uL Eos # (Auto) (0.0-0.4) X10*3/uL Baso # (Auto) (0.0-0.2) X10*3/uL Abs Immat Gran (auto) (0.00-0.03) X10*3/uL Absolute Neuts (auto) (2.0-8.3) X10*3/uL Absolute Nucleated RBC (0.0-0.012) X10*3/uL Nucleated RBC % (auto) (0.0-0.2) /100WBC Hold Purple Top SEE NOTE Hold Blue Top Sodium 133 L (135-145) mmol/L Potassium 4.9 (3.3-5.1) mmol/L Chloride 100 (96-108) mmol/L Carbon Dioxide 23 (22-29) mmol/L Anion Gap 15 (12-20) BUN 47 H D (9-16) mg/dL Creatinine 1.64 H (0.5-1.4) mg/dL Estim Creat Clear Calc 32.6 Estimated GFR 33 POC Glucose 400 H* (60-115) mg/dL Random Glucose 508 H* (60-115) mg/dL Calcium 9.4 D (8.4-10.2) mg/dL Troponin I High Sens (<3.5-17.0) ng/L Acetone, Qual (Negative) 07/01/20 07/01/20 07/01/20 Range/Units 18:34 20:14 20:53 WBC (4.8-10.8) X10*3/uL RBC (4.20-5.50) X10*6/uL Hgb (12.0-16.0) g/dl Hct (37-47) % MCV (80-98) fL MCH (27.0-33.0) pg MCHC (31.0-35.0) g/dl RDW (11.0-16.0) % Plt Count (160-400) X10*3/uL MPV (9.4-12.3) fL Immature Gran % (Auto) (0.0-0.4) % Neut % (Auto) (45-73) % Lymph % (Auto) (20-40) % [place] % (Auto) (2-11) % Eos % (Auto) (0-4) % Baso % (Auto) (0-2) % Lymph # (Auto) (1.2-4.9) X10*3/uL [place] # (Auto) (0.1-1.2) X10*3/uL Eos # (Auto) (0.0-0.4) X10*3/uL Baso # (Auto) (0.0-0.2) X10*3/uL Abs Immat Gran (auto) (0.00-0.03) X10*3/uL Absolute Neuts (auto) (2.0-8.3) X10*3/uL Absolute Nucleated RBC (0.0-0.012) X10*3/uL Nucleated RBC % (auto) (0.0-0.2) /100WBC Hold Purple Top Hold Blue Top Sodium (135-145) mmol/L Potassium (3.3-5.1) mmol/L Chloride (96-108) mmol/L Carbon Dioxide (22-29) mmol/L Anion Gap (12-20) BUN (9-16) mg/dL Creatinine (0.5-1.4) mg/dL Estim Creat Clear Calc Estimated GFR POC Glucose 272 H (60-115) mg/dL Random Glucose (60-115) mg/dL Calcium (8.4-10.2) mg/dL Troponin I High Sens 15.4 (<3.5-17.0) ng/L Acetone, Qual Negative (Negative) Imaging Data Chest x-ray: Radiologist's impression: No acute disease. ECG Data ECG #1: Interpretation: Sinus bradycardia at 58 beats per minutes, normal axis deviation, normal intervals, no significant change from an old EKG. Discharge Plan Discharge Clinical Impression: Chest wall pain Patient Disposition: Home, Self-Care Instructions: Chest Wall Pain (ED) Prescriptions: No Action atorvastatin 80 mg tablet 1 tab PO DAILY RF: 0 mirtazapine 30 mg tablet,disintegrating 1 tab PO BEDTIME RF: 0 albuterol sulfate 90 mcg/actuation HFA aerosol inhaler 2 puff inhalation Q4H PRN (Reason: Shortness Of Breath Or Wheezing) RF: 0 insulin lispro [Humalog KwikPen Insulin] 100 unit/mL insulin pen 12 unit subcut TIDAC RF: 0 duloxetine 60 mg capsule,delayed release(DR/EC) 1 cap PO DAILY RF: 0 Tresiba FlexTouch U-200 200 unit/mL (3 mL) insulin pen 30 unit subcut DAILY RF: 0 Flovent HFA 44 mcg/actuation HFA aerosol inhaler 2 puff inhalation BID RF: 0 Synjardy XR 12.5-1,000 mg tablet, IR - ER, biphasic 24hr 2 tab PO DAILY RF: 0 aspirin 81 mg Tablet,Chewable 81 mg PO DAILY Qty: 30 RF: 0 amiodarone 200 mg tablet 200 mg PO BID RF: 0 clopidogrel 75 mg tablet 75 mg PO DAILY RF: 0 furosemide [Lasix] 40 mg tablet 40 mg PO DAILY RF: 0 pantoprazole 40 mg tablet,delayed release (DR/EC) 40 mg PO DAILY RF: 0 thiamine HCl (vitamin B1) 100 mg tablet 100 mg PO DAILY RF: 0 metoprolol succinate 50 mg tablet extended release 24 hr 50 mg PO DAILY RF: 0 Referrals: Eriberto Richards MD [Physician] - 2 days
[2020-07-01 19:12] LABS: Acetone, serum QL Negative (Negative)
[2020-07-01] MEDS: Insulin Regular, Human 100 UNIT/ML 3 ML VIAL IVPUSH (19:52)
[2020-07-01 19:54] VITALS: BP 168/77; PULSE 63; RESP 18; TEMP 36.6; O2SAT 99
[2020-07-01] MEDS: 0.9 % Sodium Chloride 1,000 ML 999 ML IVCONT (20:24)
[2020-07-01] MEDS: Acetaminophen 325 MG TABLET 650 MG PO (20:47)
[2020-07-01 20:55] LABS: Troponin-I High Sensitivity 15.4 ng/L (<3.5-17.0)
[2020-07-01 20:57] LABS: Glucose, Whole Blood 272 mg/dL (60-115)
--- NOTE | 2020-07-01 20:57 | PC.NURSE ---
Pt eating [employer] in bed, tearful r/t sisters , c/o -12/29 CP. VSS, skin w/p/d.
[2020-07-01 21:22] VITALS: BP 170/73; PULSE 65; RESP 14; O2SAT 99
== END 2020-07-01 21:37 | disposition home or self-care (01) ==
PROVIDERS: Emergency Provider Emergency Medicine
DX: R07.89 Other chest pain (principal); Z72.89 Other problems related to lifestyle; Z63.4 Disappearance and death of family member; E11.9 Type 2 diabetes mellitus without complications; I10 Essential (primary) hypertension; E78.5 Hyperlipidemia, unspecified; F41.9 Anxiety disorder, unspecified; J45.909 Unspecified asthma, uncomplicated; I25.2 Old myocardial infarction; Z95.1 Presence of aortocoronary bypass graft
CPT/HCPCS: 36415; 71045; 80048; 82009; 82947; 84484; 85025; 93005; 96361; 96374; 99284; 99285

== ENCOUNTER 2020-08-11 10:25 | Emergency (ER) | payer MEDICAID, SELFPAY ==
--- NOTE | ~2020-08-11 | XR_ITS ---
EXAMINATION: XR FOOT, LEFT CLINICAL INFORMATION: New injury. Recent fracture. COMPARISON: Left foot 08/03/2020 TECHNIQUE: AP, lateral, and oblique views of the left foot. FINDINGS: There is no visible acute fracture, dislocation or subluxation. The ankle mortise and subtalar joints are normal. There is a moderate to large calcaneal heel enthesophyte. There is mild dorsal distal foot soft tissue swelling. XR/XR foot LT min 3V IMPRESSION: Moderate to large calcaneal heel enthesophyte. No change from 08/03/2020
[2020-08-11 12:57] VITALS: BP 162/77; PULSE 77; RESP 18; TEMP 36.8; O2SAT 99; BMI 28.2
--- NOTE | 2020-08-11 13:02 | ED.LOWEXIN ---
HPI - Extremity Injury (Lower) General Chief Complaint: Extremity Injury, Lower Stated Complaint: diabetic light pain Time Seen by Provider: 08/11/20 13:01 Related Data Home Medications Medication Instructions Recorded Confirmed Flovent HFA 2 puff INHALATION BID 02/26/20 03/04/20 Synjardy XR 2 tab PO DAILY 02/26/20 03/04/20 Tresiba FlexTouch U-200 30 unit SUBCUT DAILY 02/26/20 03/04/20 albuterol sulfate 2 puff INHALATION Q4H PRN 02/26/20 03/19/20 atorvastatin 1 tab PO DAILY 02/26/20 03/19/20 duloxetine 1 cap PO DAILY 02/26/20 03/04/20 insulin lispro [Humalog KwikPen 12 unit SUBCUT TIDAC 02/26/20 03/04/20 Insulin] mirtazapine 1 tab PO BEDTIME 02/26/20 03/04/20 amiodarone 200 mg tablet 200 mg PO BID 03/19/20 03/19/20 clopidogrel 75 mg tablet 75 mg PO DAILY 03/19/20 03/19/20 furosemide 40 mg tablet 40 mg PO DAILY 03/19/20 03/19/20 metoprolol succinate 50 mg 50 mg PO DAILY 03/19/20 03/19/20 tablet,extended release 24 hr pantoprazole 40 mg tablet,delayed 40 mg PO DAILY 03/19/20 03/19/20 release thiamine HCl (vitamin B1) 100 mg 100 mg PO DAILY 03/19/20 03/19/20 tablet Previous Rx's Medication Instructions Recorded aspirin 81 mg PO DAILY #30 tab 02/29/20 Allergies Allergy/AdvReac Type Severity Reaction Status Date / Time No Known Allergies Allergy Verified 08/11/20 12:55 [No Known Allergies*] [facility] Past Medical History Medical History Anxiety Asthma CAD (coronary artery disease) Depression Diabetes Hyperlipidemia Hypertension NSTEMI (non-ST elevated myocardial infarction) Postoperative atrial fibrillation Surgical History S/P CABG x 3 (~02/2020) S/P cardiac cath Family History Family History Sister Coronary arteriography abnormal ESRD (end stage renal disease) PAF (paroxysmal atrial fibrillation) Social History Social History Household Members: None Housing: House Alcohol intake: never Smoking Status: Never smoker Advance Directives: Yes Advance Directives Information Provided: Yes Advance Directives on File: No Patient : No service: No Current occupational status: disabled Physical Exam Vital Signs: Vital Signs: Last Vital Signs Temp 98.3 F 08/11/20 12:57 Pulse 77 08/11/20 12:57 Resp 18 08/11/20 12:57 BP 162/77 H 08/11/20 12:57 Pulse Ox 99 08/11/20 12:57 Body Mass Index 28.2 Course Course Course Narrative: Rapid medical examination: 50 y/o female with history of DM and recent foot fracture on 08/03 presenting to the ER with increased left foot pain after she twisted it on a curb while getting into the car. Bruising to the top and bottom of her toes. She is concerned because she is diabetic. Splint in place, using crutch. Will get repeat XR to assess for new injury. Discharge Plan Discharge Prescriptions: No Action atorvastatin 80 mg tablet 1 tab PO DAILY RF: 0 mirtazapine 30 mg tablet,disintegrating 1 tab PO BEDTIME RF: 0 albuterol sulfate 90 mcg/actuation HFA aerosol inhaler 2 puff inhalation Q4H PRN (Reason: Shortness Of Breath Or Wheezing) RF: 0 insulin lispro [Humalog KwikPen Insulin] 100 unit/mL insulin pen 12 unit subcut TIDAC RF: 0 duloxetine 60 mg capsule,delayed release(DR/EC) 1 cap PO DAILY RF: 0 Tresiba FlexTouch U-200 200 unit/mL (3 mL) insulin pen 30 unit subcut DAILY RF: 0 Flovent HFA 44 mcg/actuation HFA aerosol inhaler 2 puff inhalation BID RF: 0 Synjardy XR 12.5-1,000 mg tablet, IR - ER, biphasic 24hr 2 tab PO DAILY RF: 0 aspirin 81 mg Tablet,Chewable 81 mg PO DAILY Qty: 30 RF: 0 amiodarone 200 mg tablet 200 mg PO BID RF: 0 clopidogrel 75 mg tablet 75 mg PO DAILY RF: 0 furosemide [Lasix] 40 mg tablet 40 mg PO DAILY RF: 0 pantoprazole 40 mg tablet,delayed release (DR/EC) 40 mg PO DAILY RF: 0 thiamine HCl (vitamin B1) 100 mg tablet 100 mg PO DAILY RF: 0 metoprolol succinate 50 mg tablet extended release 24 hr 50 mg PO DAILY RF: 0
--- NOTE | 2020-08-11 14:00 | ED.LOWEXIN ---
HPI - Extremity Injury (Lower) General Chief Complaint: Extremity Injury, Lower Stated Complaint: diabetic light pain Time Seen by Provider: 08/11/20 13:01 Source: patient Mode of arrival: ambulatory Limitations: no limitations History of Present Illness HPI Narrative: Patient presents to ED for left foot pain. Patient twisted her foot 2 days ago. Patient diagnosed with a foot fracture on august 03 at ER in [place] and was placed int splint but removed it because it was bothersome. Patient states has been walking on foot ever since. Related Data Home Medications Medication Instructions Recorded Confirmed Flovent HFA 2 puff INHALATION BID 02/26/20 03/04/20 Synjardy XR 2 tab PO DAILY 02/26/20 03/04/20 Tresiba FlexTouch U-200 30 unit SUBCUT DAILY 02/26/20 03/04/20 albuterol sulfate 2 puff INHALATION Q4H PRN 02/26/20 03/19/20 atorvastatin 1 tab PO DAILY 02/26/20 03/19/20 duloxetine 1 cap PO DAILY 02/26/20 03/04/20 insulin lispro [Humalog KwikPen 12 unit SUBCUT TIDAC 02/26/20 03/04/20 Insulin] mirtazapine 1 tab PO BEDTIME 02/26/20 03/04/20 amiodarone 200 mg tablet 200 mg PO BID 03/19/20 03/19/20 clopidogrel 75 mg tablet 75 mg PO DAILY 03/19/20 03/19/20 furosemide 40 mg tablet 40 mg PO DAILY 03/19/20 03/19/20 metoprolol succinate 50 mg 50 mg PO DAILY 03/19/20 03/19/20 tablet,extended release 24 hr pantoprazole 40 mg tablet,delayed 40 mg PO DAILY 03/19/20 03/19/20 release thiamine HCl (vitamin B1) 100 mg 100 mg PO DAILY 03/19/20 03/19/20 tablet Previous Rx's Medication Instructions Recorded aspirin 81 mg PO DAILY #30 tab 02/29/20 oxycodone-acetaminophen [Percocet] 1 tab PO Q8H PRN 3 Days #9 tab 08/11/20 Allergies Allergy/AdvReac Type Severity Reaction Status Date / Time No Known Allergies Allergy Verified 08/11/20 12:55 [No Known Allergies*] Review of Systems Review of Systems: Yes all other systems are reviewed and are negative Constitutional: Constitutional: Reports as per HPI and Reports no additional constitutional complaints Eyes: Eyes: Reports as per HPI and Reports no additional eye complaints ENT: Reports system reviewed and no additional complaints, except as documented and Reports as per HPI Cardiovascular: Cardiovascular: Reports as per HPI and Reports no additional cardiovascular complaints Respiratory: Respiratory: Reports as per HPI and Reports no additional respiratory complaints Gastrointestinal: Gastrointestinal: Reports as per HPI and Reports no additional gastrointestinal complaints Genitourinary: Genitourinary: Reports no additional female genitourinary complaints and Reports as per HPI Musculoskeletal: Musculoskeletal: Reports no additional musculoskeletal complaints, Reports as per HPI and Reports arthralgias (No for pain) Neurologic: Reports system reviewed and no additional complaints, except as documented and Reports as per HPI Psychiatric: Psychiatric: Reports no additional psychiatric complaints and Reports as per HPI PMFSH Past Medical History Medical History Anxiety Asthma CAD (coronary artery disease) Depression Diabetes Hyperlipidemia Hypertension NSTEMI (non-ST elevated myocardial infarction) Postoperative atrial fibrillation Surgical History S/P CABG x 3 (~02/2020) S/P cardiac cath Family History Family History Sister Coronary arteriography abnormal ESRD (end stage renal disease) PAF (paroxysmal atrial fibrillation) Social History Social History Household Members: None Housing: House Alcohol intake: never Smoking Status: Never smoker Advance Directives: Yes Advance Directives Information Provided: Yes Advance Directives on File: No Patient : No service: No Current occupational status: disabled Physical Exam Vital Signs: Vital Signs: Last Vital Signs Temp 98.3 F 08/11/20 12:57 Pulse 77 08/11/20 12:57 Resp 18 08/11/20 12:57 BP 162/77 H 08/11/20 12:57 Pulse Ox 99 08/11/20 12:57 Body Mass Index 28.2 Const: General: cooperative, healthy appearing, comfortable, no acute distress, well developed, alert, awake and Physically active Orientation/consciousness: patient oriented x3 Eyes: General: appearance normal, both eyes and all related structures Neck: Neck: Yes normal visual inspection, Yes full ROM, Yes no lymphadenopathy, Yes no meningeal signs, Yes trachea midline, Yes supple and No tender Chest: Chest palpation & inspection: normal inspection of the chest and normal palpation of entire chest wall Resp: Effort & Inspection: normal respiratory effort and able to speak in complete sentences Cardio: Jugular venous distension: no JVD Heart sounds: S1 normal heart sound present and S2 normal heart sound present GI: Inspection: Yes normal to inspection and No abdominal wall ecchymosis Palpation (GI): Soft to palpation, not firm, nontender, no guarding and not rigid : General: No CVA tenderness and Yes no CVA tenderness Back/Spine/Pelvis: Back: no CVA tenderness, No CVA tenderness and No back tenderness Skin: General skin exam: no rashes or lesions noted and elasticity normal Neuro: General: patient oriented x3, no meningeal signs and CN's II-XI intact bilaterally Cranial nerves: Yes CN's II-XII intact bilaterally Extrem: Other: Left lower extremity: Positive for slight ecchymosis on the dorsal aspect of foot with some tenderness. Negative for obvious deformity. Pedal pulses intact. Neuro/vascular exam/mode of left lower extremity intact. Rest of extremity negative for signs of trauma. Course Course Course Narrative: Patient already ordered for x-ray. Reevaluation(s) Reevaluation #1: X-ray negative for fracture. Patient states she had a splint on and removed because it was uncomfortable couple days ago. Patient requesting boot. Patient has follow-up with orthopedic on the . will order boot. MDM - Extremity Injury (Lower) MDM Narrative Medical decision making narrative: Foot sprain Discharge Plan Discharge Clinical Impression: Foot sprain, Contusion Patient Disposition: Home, Self-Care Instructions: Contusion in Adults (ED), Foot Sprain (ED) Additional Instructions: Regrese al servicio de urgencias si empeora el dolor y la extremidad inferior, hinchaz?n de la extremidad inferior izquierda, dolor en la pantorrilla o dificultad para respirar, decoloraci?n azulada / brandee de los dedos de los pies, enrojecimiento, dolor en el pecho o cualquier otro s?ntoma preocupante. Ronak un seguimiento con el m?dico ortop?dico al que lo remitieron. Prescriptions: New oxycodone-acetaminophen [Percocet] 5-325 mg tablet 1 tab PO Q8H PRN (Reason: pain) 3 Days Qty: 9 RF: 0 No Action atorvastatin 80 mg tablet 1 tab PO DAILY RF: 0 mirtazapine 30 mg tablet,disintegrating 1 tab PO BEDTIME RF: 0 albuterol sulfate 90 mcg/actuation HFA aerosol inhaler 2 puff inhalation Q4H PRN (Reason: Shortness Of Breath Or Wheezing) RF: 0 insulin lispro [Humalog KwikPen Insulin] 100 unit/mL insulin pen 12 unit subcut TIDAC RF: 0 duloxetine 60 mg capsule,delayed release(DR/EC) 1 cap PO DAILY RF: 0 Tresiba FlexTouch U-200 200 unit/mL (3 mL) insulin pen 30 unit subcut DAILY RF: 0 Flovent HFA 44 mcg/actuation HFA aerosol inhaler 2 puff inhalation BID RF: 0 Synjardy XR 12.5-1,000 mg tablet, IR - ER, biphasic 24hr 2 tab PO DAILY RF: 0 aspirin 81 mg Tablet,Chewable 81 mg PO DAILY Qty: 30 RF: 0 amiodarone 200 mg tablet 200 mg PO BID RF: 0 clopidogrel 75 mg tablet 75 mg PO DAILY RF: 0 furosemide [Lasix] 40 mg tablet 40 mg PO DAILY RF: 0 pantoprazole 40 mg tablet,delayed release (DR/EC) 40 mg PO DAILY RF: 0 thiamine HCl (vitamin B1) 100 mg tablet 100 mg PO DAILY RF: 0 metoprolol succinate 50 mg tablet extended release 24 hr 50 mg PO DAILY RF: 0 Interventions: ED Discharge Assessment Last Done: 08/11/20 14:59 Discharge Date/Time: 08/11/20 15:00 Print Language: Yemeni
== END 2020-08-11 15:00 | disposition home or self-care (01) ==
PROVIDERS: Emergency Provider Emergency Medicine
DX: S93.602A Unspecified sprain of left foot, initial encounter (principal); I25.10 Atherosclerotic heart disease of native coronary artery without angina pectoris; X58.XXXA Exposure to other specified factors, initial encounter; Y93.9 Activity, unspecified; Y92.9 Unspecified place or not applicable; Y99.9 Unspecified external cause status; Z79.899 Other long term (current) drug therapy; Z79.4 Long term (current) use of insulin; Z79.82 Long term (current) use of aspirin
CPT/HCPCS: 73630; 99284

== ENCOUNTER 2020-08-12 09:32 | Emergency (ER) | payer MEDICAID, SELFPAY ==
--- NOTE | ~2020-08-12 | CT_ITS ---
EXAMINATION: CT ANGIOGRAM NECK WITH CONTRAST CT ANGIOGRAM BRAIN WITH CONTRAST CLINICAL INFORMATION: Question large vessel occlusion. Possible thrombectomy. COMPARISON: Head CT performed just prior. TECHNIQUE: Test bolus sequences followed by intravenous administration 70 mL of Omnipaque 350. Helical imaging was performed in the axial plane from the thoracic inlet to the skull vertex. Delayed postcontrast imaging of the head was also performed. The data was processed at the learning technologist workstation for generation of MIP sequences. Angled MIPs and volume rendered reformatted images were also generated at an offline 3D workstation. Stenoses are assessed in accordance with NASCET criteria unless otherwise indicated. This CT examination was performed using dose optimization techniques as appropriate, variously including the following: *Automated exposure control *Adjustment of mA and/or kV according to patient size (this includes techniques or standardized protocols for targeted exams where dose is matched to indication/reason for exam; i.e. extremities or head) *Use of iterative reconstruction technique DLP: 1430 mGy-cm FINDINGS: Head CT: A rounded focus of hypoattenuation is seen within the right centrum semiovale. An additional smaller focus of hypoattenuation in the Within the right subinsular white matter on series 13 image 26/52. A peripherally enhancing lesion is present within the right frontal lobe bordering the caudate head as seen on series 13 image 26/52 measuring up to 1.2 cm. No additional foci of abnormal parenchymal enhancement is seen. The ventricles are normal in size without hydrocephalus. The dural venous sinuses are normally opacified. The extracranial structures appear normal. Neck CTA: The aortic arch is patent. The great vessel origins are patent. Atheromatous changes are seen at both carotid bifurcations without associated stenosis. Minimal beaded morphology is seen involving the cervical internal carotid arteries likely on the basis of fibromuscular dysplasia. No stenosis or pseudoaneurysm is seen. Both vertebral arteries are patent along their cervical course. Head CTA: Both vertebral arteries are patent. The basilar artery is patent. There is a normal right posterior communicating artery. The left posterior communicating artery appears atretic. There is mild to moderate focal stenosis along the proximal right [address] [employer] segment. The ICAs are patent with mild atheromatous changes seen at the carotid siphons. There is focal occlusion of the mid M1 MCA segment. More distally, the M2 segments are reconstituted in the MCA collaterals appear fairly symmetric. The left MCA is patent. The bilateral ACAs are patent. No definite aneurysm is seen. Non-vascular findings: The cervical soft tissues appear normal. 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 There is no gross consolidation in the upper lungs. Multilevel degenerative changes are present within the spine. There is no high-grade osseous encroachment on the spinal canal. 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 Major neck arteries are patent. No definite aneurysm. Peripherally enhancing lesion seen in the right inferior frontal lobe bordering the caudate head. This finding is indeterminate but could represent a focus of subacute infarction (within the MCA territory). However, other etiologies remain in the differential and could be clarified with MRI. Areas of suspected evolving acute ischemia are seen within the right MCA territory within the centrum semiovale and subinsular region. Incidentally noted nonspecific effacement of the left pyriform sinus which could be correlated with direct visual inspection on the nonemergent basis. This critical result was discussed with Dr. Choudhury on 08/12/2020 12:09PM, and it was ascertained that the content and urgency of the report was understood at the time of direct communication.
--- NOTE | ~2020-08-12 | CT_ITS ---
EXAMINATION: CT HEAD WITHOUT CONTRAST (STROKE PROTOCOL) CLINICAL INFORMATION: Stroke protocol. Left dense hemiparesis. COMPARISON: None TECHNIQUE: Contiguous axial imaging was performed from the skull base to vertex without intravenous administration of contrast. This CT examination was performed using dose optimization techniques as appropriate, variously including the following: *Automated exposure control *Adjustment of mA and/or kV according to patient size (this includes techniques or standardized protocols for targeted exams where dose is matched to indication/reason for exam; i.e. extremities or head) *Use of iterative reconstruction technique DLP: 629 mGy-cm FINDINGS: There is no intracranial hemorrhage, hematoma, or extra-axial fluid collection. The ventricles are normal in size. There is no hydrocephalus, edema, or mass effect. The ambriz-white matter differentiation appears symmetric. The small 1 cm infarct in the right frontal lobe deep white matter/gama radiata likely acute. There are no previous exam available for comparison. The calvarium appears intact. There is no pneumocephalus or orbital emphysema. The visualized sinuses and middle ears and mastoid air cells show no significant mucosal thickening. There are no air-fluid levels. CT/CT head for stroke IMPRESSION: 1 cm small infarct in the right frontal lobe deep white matter/gama radiata, likely acute. There is no additional hypodensities seen. There is no acute intracranial bleed. This critical result was discussed with Dr. Sarmiento at at 10:40 AM today. It was ascertained that the content and urgency of the report was understood at the time of direct communication.
[2020-08-12 09:49] VITALS: BP 169/85; PULSE 78; RESP 16; TEMP 36.6; O2SAT 98; BMI 28.0
--- NOTE | 2020-08-12 10:08 | ED.NEUROSD ---
HPI - Neuro Symptoms/Deficit General Chief Complaint: Stroke <Morro Sarmiento MD - Last Filed: 08/12/20 10:44> Stated Complaint: L SIDED WEAKNESS <Morro Sarmiento MD - Last Filed: 08/12/20 10:44> Time Seen by Provider: 08/12/20 10:08 <Morro Sarmiento MD - Last Filed: 08/12/20 10:44> Source: patient <Morro Sarmiento MD - Last Filed: 08/12/20 10:44> Mode of arrival: ambulatory <Morro Sarmiento MD - Last Filed: 08/12/20 10:44> Limitations: no limitations <Morro Sarmiento MD - Last Filed: 08/12/20 10:44> History of Present Illness HPI Narrative: Left sided weakness that started at 3:20am. Patient presented at 10am <Morro Sarmiento MD - Last Filed: 08/12/20 10:44> Onset (ago): hour(s) <Morro Sarmiento MD - Last Filed: 08/12/20 10:44> Time: 03:20 <Morro Sarmiento MD - Last Filed: 08/12/20 10:44> Last Observed Normal: 10:00 <Morro Sarmiento MD - Last Filed: 08/12/20 10:44> Location: left arm and left leg <Morro Sarmiento MD - Last Filed: 08/12/20 10:44> History of same: No <Morro Sarmiento MD - Last Filed: 08/12/20 10:44> Severity: severe <Morro Sarmiento MD - Last Filed: 08/12/20 10:44> Quality: weak <Morro Sarmiento MD - Last Filed: 08/12/20 10:44> Relieving factors: none <Morro Sarmiento MD - Last Filed: 08/12/20 10:44> Exacerbating factors: none <Morro Sarmiento MD - Last Filed: 08/12/20 10:44> Context: sudden onset <Morro Sarmiento MD - Last Filed: 08/12/20 10:44> On Anticoagulants: No <Morro Sarmiento MD - Last Filed: 08/12/20 10:44> Associated symptoms: denies other symptoms <Morro Sarmiento MD - Last Filed: 08/12/20 10:44> Treatments Prior to Arrival: Aspirin <Morro Sarmiento MD - Last Filed: 08/12/20 10:44> Related Data Home Medications: Home Medications Medication Instructions Recorded Confirmed Flovent HFA 2 puff INHALATION BID 02/26/20 03/04/20 Synjardy XR 2 tab PO DAILY 02/26/20 03/04/20 Tresiba FlexTouch U-200 30 unit SUBCUT DAILY 02/26/20 03/04/20 albuterol sulfate 2 puff INHALATION Q4H PRN 02/26/20 03/19/20 atorvastatin 1 tab PO DAILY 02/26/20 03/19/20 duloxetine 1 cap PO DAILY 02/26/20 03/04/20 insulin lispro [Humalog KwikPen 12 unit SUBCUT TIDAC 02/26/20 03/04/20 Insulin] mirtazapine 1 tab PO BEDTIME 02/26/20 03/04/20 amiodarone 200 mg tablet 200 mg PO BID 03/19/20 03/19/20 clopidogrel 75 mg tablet 75 mg PO DAILY 03/19/20 03/19/20 furosemide 40 mg tablet 40 mg PO DAILY 03/19/20 03/19/20 metoprolol succinate 50 mg 50 mg PO DAILY 03/19/20 03/19/20 tablet,extended release 24 hr pantoprazole 40 mg tablet,delayed 40 mg PO DAILY 03/19/20 03/19/20 release thiamine HCl (vitamin B1) 100 mg 100 mg PO DAILY 03/19/20 03/19/20 tablet Previous Rx's Medication Instructions Recorded aspirin 81 mg PO DAILY #30 tab 02/29/20 oxycodone-acetaminophen [Percocet] 1 tab PO Q8H PRN 3 Days #9 tab 08/11/20 <Morro Sarmiento MD - Last Filed: 08/12/20 10:44> Allergies/Adverse Reactions: Allergies Allergy/AdvReac Type Severity Reaction Status Date / Time No Known Allergies Allergy Verified 08/11/20 12:55 [No Known Allergies*] <Morro Sarmiento MD - Last Filed: 08/12/20 10:44> Review of Systems Constitutional: Constitutional: Reports no additional constitutional complaints <Morro Sarmiento MD - Last Filed: 08/12/20 10:44> Eyes: Eyes: Reports no additional eye complaints <Morro Sarmiento MD - Last Filed: 08/12/20 10:44> ENT: Denies dizziness <Morro Sarmiento MD - Last Filed: 08/12/20 10:44> Cardiovascular: Cardiovascular: Reports no additional cardiovascular complaints <Morro Sarmiento MD - Last Filed: 08/12/20 10:44> Respiratory: Respiratory: Reports as per HPI <Morro Sarmiento MD - Last Filed: 08/12/20 10:44> Gastrointestinal: Gastrointestinal: Reports no additional gastrointestinal complaints <Morro Sarmiento MD - Last Filed: 08/12/20 10:44> Genitourinary: Genitourinary: Reports no additional female genitourinary complaints <Morro Sarmiento MD - Last Filed: 08/12/20 10:44> Musculoskeletal: Musculoskeletal: Reports no additional musculoskeletal complaints <Morro Sarmiento MD - Last Filed: 08/12/20 10:44> Integumentary/Breasts: Skin/Breast: Denies rash <Morro Sarmiento MD - Last Filed: 08/12/20 10:44> Neurologic: Reports system reviewed and no additional complaints, except as documented and Denies dizziness <Morro Sarmiento MD - Last Filed: 08/12/20 10:44> Psychiatric: Psychiatric: Denies anxiety <Morro Sarmiento MD - Last Filed: 08/12/20 10:44> [facility] Past Medical History Medical History: Medical History Anxiety Asthma CAD (coronary artery disease) Depression Diabetes Hyperlipidemia Hypertension NSTEMI (non-ST elevated myocardial infarction) Postoperative atrial fibrillation <Morro Sarmiento MD - Last Filed: 08/12/20 10:44> Surgical History: Surgical History S/P CABG x 3 (~02/2020) S/P cardiac cath <Morro Sarmiento MD - Last Filed: 08/12/20 10:44> Family History Family History: Family History Sister Coronary arteriography abnormal ESRD (end stage renal disease) PAF (paroxysmal atrial fibrillation) <Morro Sarmiento MD - Last Filed: 08/12/20 10:44> Social History Social History: Social History Household Members: None Housing: House Alcohol intake: never Smoking Status: Never smoker Advance Directives: Yes Advance Directives on File: Yes Advance Directives Date on File: 03/04/20 Patient : No service: No Current occupational status: disabled <Morro Sarmiento MD - Last Filed: 08/12/20 10:44> Physical Exam Vital Signs: Vital Signs: Last Vital Signs Temp 98.5 F 08/12/20 11:24 Pulse 87 08/12/20 12:00 Resp 08/12/20 12:00 BP 193/105 H 08/12/20 12:22 Pulse Ox 96 08/12/20 12:00 Body Mass Index 28.0 <Morro Sarmiento MD - Last Filed: 08/12/20 10:44> Vital Signs: Last Vital Signs Temp 98.5 F 08/12/20 11:24 Pulse 87 08/12/20 12:00 Resp 08/12/20 12:00 BP 193/105 H 08/12/20 12:22 Pulse Ox 96 08/12/20 12:00 Body Mass Index 28.0 <Светлана Choudhury MD - Last Filed: 08/12/20 14:54> Const: General: healthy appearing <Morro Sarmiento MD - Last Filed: 08/12/20 10:44> Nutritional Appearance: average body habitus <Morro Sarmiento MD - Last Filed: 08/12/20 10:44> Orientation/consciousness: oriented to person and patient oriented x3 <Morro Sarmiento MD - Last Filed: 08/12/20 10:44> Limitations: no limitations <Morro Sarmiento MD - Last Filed: 08/12/20 10:44> HENMT: Head: Yes normal to inspection <Morro Sarmiento MD - Last Filed: 08/12/20 10:44> Ears: external ears normal <Morro Sarmiento MD - Last Filed: 08/12/20 10:44> General nose exam: Normal external nose present <Morro Sarmiento MD - Last Filed: 08/12/20 10:44> Mouth: Normal oral and palatal mucosa present and oropharynx normal <Morro Sarmiento MD - Last Filed: 08/12/20 10:44> Throat: Yes posterior oropharynx normal <Morro Sarmiento MD - Last Filed: 08/12/20 10:44> Eyes: General: appearance normal, both eyes and all related structures <Morro Sarmiento MD - Last Filed: 08/12/20 10:44> Neck: Other: supple <Morro Sarmiento MD - Last Filed: 08/12/20 10:44> Neck: Yes normal visual inspection <Morro Sarmiento MD - Last Filed: 08/12/20 10:44> Chest: Chest palpation & inspection: normal inspection of the chest <Morro Sarmiento MD - Last Filed: 08/12/20 10:44> Resp: Auscultation: clear to auscultation bilaterally <Morro Sarmiento MD - Last Filed: 08/12/20 10:44> Cardio: Jugular venous distension: no JVD <Morro Sarmiento MD - Last Filed: 08/12/20 10:44> Rate: regular rate <Morro Sarmiento MD - Last Filed: 08/12/20 10:44> Rhythm: regular rhythm <Morro Sarmiento MD - Last Filed: 08/12/20 10:44> Heart sounds: S1 normal heart sound present and S2 normal heart sound present <Morro Sarmiento MD - Last Filed: 08/12/20 10:44> GI: Inspection: Yes normal to inspection <Morro Sarmineto MD - Last Filed: 08/12/20 10:44> Palpation (GI): Soft to palpation, nontender and No hepatosplenomegaly present <MD Yoli Enciso Last Filed: 08/12/20 10:44> Auscultation: normal bowel sounds <Morro Sarmiento MD - Last Filed: 08/12/20 10:44> : General: Yes no CVA tenderness <Morro Sarmiento MD - Last Filed: 08/12/20 10:44> Back/Spine/Pelvis: Back: no CVA tenderness <Morro Sarmiento MD - Last Filed: 08/12/20 10:44> Skin: General skin exam: no rashes or lesions noted <Morro Sarmiento MD - Last Filed: 08/12/20 10:44> Neuro: Other: left arm and leg with minimal movement against gravity <Morro Sarmiento MD - Last Filed: 08/12/20 10:44> General: oriented to person and patient oriented x3 <Morro Sarmiento MD - Last Filed: 08/12/20 10:44> Cranial nerves: Yes CN's II-XII intact bilaterally <Morro Sarmiento MD - Last Filed: 08/12/20 10:44> Coordination: [id number] test normal <Morro Sarmiento MD - Last Filed: 08/12/20 10:44> Extrem: General: Yes normal to inspection <Morro Sarmiento MD - Last Filed: 08/12/20 10:44> Psych: Appearance: grossly normal <Morro Sarmiento MD - Last Filed: 08/12/20 10:44> Course Reevaluation(s) Reevaluation #1: I assumed care for this patient from Dr. Reddy at 11:30 am, pending CTA angiogram of the head and neck for stroke. 50-year-old female with history of hypertension, diabetes presented with left-sided hemiparesis symptoms started at 03:20 am, patient did not bother to wake up her family did not think it is serious, then patient presented later to the emergency department with her symptoms (was out of the window for thrombolytic therapy). NIH stroke score 6. 12 :[address] angiogram of the head and neck was reported to me and showed thrombotic occlusion in M 1 branch of right MCA, the case discussed immediately with Dr. Shine, patient still candidate for thrombectomy. The phone call was placed to [facility] intervention team. <Светлана Choudhury MD - Last Filed: 08/12/20 14:54> Time: 12:25 <Светлана Choudhury MD - Last Filed: 08/12/20 14:54> Reevaluation #2: The case discussed with Dr. hill (neurologist but not intervention) who stated that the thrombectomy lab is busy and should try to transfer the patient to [facility] stat. Blood pressure systolic in the 190s <Светлнаа Choudhury MD - Last Filed: 08/12/20 14:54> Time: 12:45 <Светлана Choudhury MD - Last Filed: 08/12/20 14:54> Reevaluation #3: Because time is sensitive I made another phone call to [facility], patient has been accepted by Dr. Cunningham to [facility] for possible thrombectomy, arranging for stat ground transportation. Will keep blood pressure on the higher side which may benefit patient's cerebral perfusion. <Светлана Choudhury MD - Last Filed: 08/12/20 14:54> MDM - Neuro Symptoms/Deficit Lab Data Result diagrams: : 08/12/20 10:26 08/12/20 10:26 <Morro Sarmiento MD - Last Filed: 08/12/20 10:44> Labs: Lab Results 08/12/20 08/12/20 08/12/20 Range/Units 10:26 10:26 10:26 WBC 9.1 (4.8-10.8) X10*3/uL RBC 4.48 (4.20-5.50) X10*6/uL Hgb 12.3 (12.0-16.0) g/dl Hct 38.4 (37-47) % MCV 85.7 (80-98) fL MCH 27.5 (27.0-33.0) pg MCHC 32.0 (31.0-35.0) g/dl RDW 14.4 (11.0-16.0) % Plt Count 319 (160-400) X10*3/uL MPV 11.1 (9.4-12.3) fL Immature Gran % (Auto) 1.1 H (0.0-0.4) % Neut % (Auto) 68.6 (45-73) % Lymph % (Auto) 22.7 (20-40) % Vilas % (Auto) 6.3 (2-11) % Eos % (Auto) 1.0 (0-4) % Baso % (Auto) 0.3 (0-2) % Lymph # (Auto) 2.1 (1.2-4.9) X10*3/uL Vilas # (Auto) 0.6 (0.1-1.2) X10*3/uL Eos # (Auto) 0.1 (0.0-0.4) X10*3/uL Baso # (Auto) 0.0 (0.0-0.2) X10*3/uL Abs Immat Gran (auto) 0.10 H (0.00-0.03) X10*3/uL Absolute Neuts (auto) 6.2 (2.0-8.3) X10*3/uL Absolute Nucleated RBC 0.000 (0.0-0.012) X10*3/uL Nucleated RBC % (auto) 0.0 (0.0-0.2) /100WBC PT (10.8-13.0) SEC INR (0.9-1.1) APTT (24.1-38.0) SEC Sodium 134 L (135-145) mmol/L Potassium 5.0 (3.3-5.1) mmol/L Chloride 102 (96-108) mmol/L Carbon Dioxide 20 L (22-29) mmol/L Anion Gap 17 (12-20) BUN 22 H D (9-16) mg/dL Creatinine 1.30 (0.5-1.4) mg/dL Estim Creat Clear Calc 41.3 Estimated GFR 43 Random Glucose 419 H* (60-115) mg/dL Calcium 9.4 (8.4-10.2) mg/dL Total Creatine Kinase 158 H (26-140) U/L Troponin I High Sens 18.7 H* (<3.5-17.0) ng/L COVID-19 (TIANA) (Negative) COVID-19 Clin Com 08/12/20 08/12/20 Range/Units 11:18 12:21 WBC (4.8-10.8) X10*3/uL RBC (4.20-5.50) X10*6/uL Hgb (12.0-16.0) g/dl Hct (37-47) % MCV (80-98) fL MCH (27.0-33.0) pg MCHC (31.0-35.0) g/dl RDW (11.0-16.0) % Plt Count (160-400) X10*3/uL MPV (9.4-12.3) fL Immature Gran % (Auto) (0.0-0.4) % Neut % (Auto) (45-73) % Lymph % (Auto) (20-40) % Vilas % (Auto) (2-11) % Eos % (Auto) (0-4) % Baso % (Auto) (0-2) % Lymph # (Auto) (1.2-4.9) X10*3/uL Vilas # (Auto) (0.1-1.2) X10*3/uL Eos # (Auto) (0.0-0.4) X10*3/uL Baso # (Auto) (0.0-0.2) X10*3/uL Abs Immat Gran (auto) (0.00-0.03) X10*3/uL Absolute Neuts (auto) (2.0-8.3) X10*3/uL Absolute Nucleated RBC (0.0-0.012) X10*3/uL Nucleated RBC % (auto) (0.0-0.2) /100WBC PT 10.0 L (10.8-13.0) SEC INR 0.8 L (0.9-1.1) APTT 36.3 (24.1-38.0) SEC Sodium (135-145) mmol/L Potassium (3.3-5.1) mmol/L Chloride (96-108) mmol/L Carbon Dioxide (22-29) mmol/L Anion Gap (12-20) BUN (9-16) mg/dL Creatinine (0.5-1.4) mg/dL Estim Creat Clear Calc Estimated GFR Random Glucose (60-115) mg/dL Calcium (8.4-10.2) mg/dL Total Creatine Kinase (26-140) U/L Troponin I High Sens (<3.5-17.0) ng/L COVID-19 (TIANA) Negative (Negative) COVID-19 Clin Com See Note <Morro Sarmiento MD - Last Filed: 05/24/21 10:44> Lab Results 08/12/20 08/12/20 08/12/20 Range/Units 10:26 10:26 10:26 WBC 9.1 (4.8-10.8) X10*3/uL RBC 4.48 (4.20-5.50) X10*6/uL Hgb 12.3 (12.0-16.0) g/dl Hct 38.4 (37-47) % MCV 85.7 (80-98) fL MCH 27.5 (27.0-33.0) pg MCHC 32.0 (31.0-35.0) g/dl RDW 14.4 (11.0-16.0) % Plt Count 319 (160-400) X10*3/uL MPV 11.1 (9.4-12.3) fL Immature Gran % (Auto) 1.1 H (0.0-0.4) % Neut % (Auto) 68.6 (45-73) % Lymph % (Auto) 22.7 (20-40) % Vilas % (Auto) 6.3 (2-11) % Eos % (Auto) 1.0 (0-4) % Baso % (Auto) 0.3 (0-2) % Lymph # (Auto) 2.1 (1.2-4.9) X10*3/uL Vilas # (Auto) 0.6 (0.1-1.2) X10*3/uL Eos # (Auto) 0.1 (0.0-0.4) X10*3/uL Baso # (Auto) 0.0 (0.0-0.2) X10*3/uL Abs Immat Gran (auto) 0.10 H (0.00-0.03) X10*3/uL Absolute Neuts (auto) 6.2 (2.0-8.3) X10*3/uL Absolute Nucleated RBC 0.000 (0.0-0.012) X10*3/uL Nucleated RBC % (auto) 0.0 (0.0-0.2) /100WBC PT (10.8-13.0) SEC INR (0.9-1.1) APTT (24.1-38.0) SEC Sodium 134 L (135-145) mmol/L Potassium 5.0 (3.3-5.1) mmol/L Chloride 102 (96-108) mmol/L Carbon Dioxide 20 L (22-29) mmol/L Anion Gap 17 (12-20) BUN 22 H D (9-16) mg/dL Creatinine 1.30 (0.5-1.4) mg/dL Estim Creat Clear Calc 41.3 Estimated GFR 43 Random Glucose 419 H* (60-115) mg/dL Calcium 9.4 (8.4-10.2) mg/dL Total Creatine Kinase 158 H (26-140) U/L Troponin I High Sens 18.7 H* (<3.5-17.0) ng/L COVID-19 (TIANA) (Negative) COVID-19 Clin Com 08/12/20 08/12/20 Range/Units 11:18 12:21 WBC (4.8-10.8) X10*3/uL RBC (4.20-5.50) X10*6/uL Hgb (12.0-16.0) g/dl Hct (37-47) % MCV (80-98) fL MCH (27.0-33.0) pg MCHC (31.0-35.0) g/dl RDW (11.0-16.0) % Plt Count (160-400) X10*3/uL MPV (9.4-12.3) fL Immature Gran % (Auto) (0.0-0.4) % Neut % (Auto) (45-73) % Lymph % (Auto) (20-40) % Vilas % (Auto) (2-11) % Eos % (Auto) (0-4) % Baso % (Auto) (0-2) % Lymph # (Auto) (1.2-4.9) X10*3/uL Vilas # (Auto) (0.1-1.2) X10*3/uL Eos # (Auto) (0.0-0.4) X10*3/uL Baso # (Auto) (0.0-0.2) X10*3/uL Abs Immat Gran (auto) (0.00-0.03) X10*3/uL Absolute Neuts (auto) (2.0-8.3) X10*3/uL Absolute Nucleated RBC (0.0-0.012) X10*3/uL Nucleated RBC % (auto) (0.0-0.2) /100WBC PT 10.0 L (10.8-13.0) SEC INR 0.8 L (0.9-1.1) APTT 36.3 (24.1-38.0) SEC Sodium (135-145) mmol/L Potassium (3.3-5.1) mmol/L Chloride (96-108) mmol/L Carbon Dioxide (22-29) mmol/L Anion Gap (12-20) BUN (9-16) mg/dL Creatinine (0.5-1.4) mg/dL Estim Creat Clear Calc Estimated GFR Random Glucose (60-115) mg/dL Calcium (8.4-10.2) mg/dL Total Creatine Kinase (26-140) U/L Troponin I High Sens (<3.5-17.0) ng/L COVID-19 (TIANA) Negative (Negative) COVID-19 Clin Com See Note <Светлана Choudhury MD - Last Filed: 08/12/20 14:54> Imaging Data CT scan - head: Radiologist's impression: right gama radiata infarct <Morro Sarmiento MD - Last Filed: 08/12/20 10:44> ECG Data Attestation: I personally reviewed and interpreted this ECG as follows: <Morro Sarmiento MD - Last Filed: 08/12/20 10:44> Interpretation: normal sinus rate 75, no st or twave changes <Morro Sarmiento MD - Last Filed: 08/12/20 10:44> NIH Stroke Scale Internal: Initial- Upon Arrival <Morro Sarmiento MD - Last Filed: 08/12/20 10:44> Level of Consciousness: Alert <Morro Sarmiento MD - Last Filed: 08/12/20 10:44> Level of Consciousness Questions: Answers both questions correctly <Morro Sarmiento MD - Last Filed: 08/12/20 10:44> Level of Consciousness Commands: Performs both tasks correctly <Morro Sarmiento MD - Last Filed: 08/12/20 10:44> Best Gaze: Normal <Morro Sarmiento MD - Last Filed: 08/12/20 10:44> Visual: No visual loss <Morro Sarmiento MD - Last Filed: 08/12/20 10:44> Facial Palsy: Normal <Morro Sarmiento MD - Last Filed: 08/12/20 10:44> Motor Arm (Right): No drift <Morro Sarmiento MD - Last Filed: 08/12/20 10:44> Motor Arm (Left): Some effort against gravity <Morro Sarmiento MD - Last Filed: 08/12/20 10:44> Motor Leg (Right): No drift <Morro Sarmiento MD - Last Filed: 08/12/20 10:44> Motor Leg (Left): Some effort against gravity <Morro Sarmiento MD - Last Filed: 08/12/20 10:44> Limb Ataxia: Absent <Morro Sarmiento MD - Last Filed: 08/12/20 10:44> Sensory: Normal <Morro Sarmiento MD - Last Filed: 08/12/20 10:44> Best Language: No aphasia <Morro Sarmiento MD - Last Filed: 08/12/20 10:44> Dysarthia: Normal <Morro Sarmiento MD - Last Filed: 08/12/20 10:44> Extinction and Inattention: No abnormality <Morro Sarmiento MD - Last Filed: 08/12/20 10:44> Score: 4 <Morro Sarmiento MD - Last Filed: 08/12/20 10:44> Critical Care Time Critical Care Time Critical Care Time: Yes <Светлана Choudhury MD - Last Filed: 08/12/20 14:54> Total Critical Care Time: 45 <Светлана Choudhury MD - Last Filed: 08/12/20 14:54> Attestation: I spent 45 minutes providing critical care service to the patient, this including time spent at the bedside to evaluate the patient, reassess the patient, monitoring vital signs, review labs, and radiographic studies, counseling the patient/family, discussing the case with consultants, disposition the patient. <Светлана Choudhury MD - Last Filed: 08/12/20 14:54> Discharge Plan Discharge Clinical Impression: Cerebrovascular accident Qualifiers: CVA mechanism: thrombosis Precerebral and cerebral artery: middle cerebral artery Laterality of affected vessel: right Qualified Code(s): I63.311 - Cerebral infarction due to thrombosis of right middle cerebral artery <Morro Sarmiento MD - Last Filed: 08/12/20 10:44> Patient Disposition: [facility] <Morro Sarmiento MD - Last Filed: 08/12/20 10:44> Transfer Details: Going to [facility] for thrombectomy. <Morro Sarmiento MD - Last Filed: 08/12/20 10:44> Going to [facility] for thrombectomy. <Светлана Choudhury MD - Last Filed: 08/12/20 14:54> Prescriptions: No Action atorvastatin 80 mg tablet 1 tab PO DAILY RF: 0 mirtazapine 30 mg tablet,disintegrating 1 tab PO BEDTIME RF: 0 albuterol sulfate 90 mcg/actuation HFA aerosol inhaler 2 puff inhalation Q4H PRN (Reason: Shortness Of Breath Or Wheezing) RF: 0 insulin lispro [Humalog KwikPen Insulin] 100 unit/mL insulin pen 12 unit subcut TIDAC RF: 0 duloxetine 60 mg capsule,delayed release(DR/EC) 1 cap PO DAILY RF: 0 Tresiba FlexTouch U-200 200 unit/mL (3 mL) insulin pen 30 unit subcut DAILY RF: 0 Flovent HFA 44 mcg/actuation HFA aerosol inhaler 2 puff inhalation BID RF: 0 Synjardy XR 12.5-1,000 mg tablet, IR - ER, biphasic 24hr 2 tab PO DAILY RF: 0 aspirin 81 mg Tablet,Chewable 81 mg PO DAILY Qty: 30 RF: 0 oxycodone-acetaminophen [Percocet] 5-325 mg tablet 1 tab PO Q8H PRN (Reason: pain) 3 Days Qty: 9 RF: 0 amiodarone 200 mg tablet 200 mg PO BID RF: 0 clopidogrel 75 mg tablet 75 mg PO DAILY RF: 0 furosemide [Lasix] 40 mg tablet 40 mg PO DAILY RF: 0 pantoprazole 40 mg tablet,delayed release (DR/EC) 40 mg PO DAILY RF: 0 thiamine HCl (vitamin B1) 100 mg tablet 100 mg PO DAILY RF: 0 metoprolol succinate 50 mg tablet extended release 24 hr 50 mg PO DAILY RF: 0 <Morro Sarmiento MD - Last Filed: 08/12/20 10:44> Interventions: Acute Care Transfer Worksheet (ED) Last Done: 08/12/20 13:11 <Morro Sarmiento MD - Last Filed: 08/12/20 10:44> Discharge Date/Time: 08/12/20 13:11 <Morro Sarmiento MD - Last Filed: 08/12/20 10:44>
--- NOTE | 2020-08-12 10:14 | ECG_ITS ---
Test Reason : STROKE PROTOCOL Blood Pressure : / mmHG Vent. Rate : 077 BPM Atrial Rate : 077 BPM P-R Int : 172 ms QRS Dur : 090 ms QT Int : 418 ms P-R-T Axes : 071 030 050 degrees QTc Int : 473 ms Normal sinus rhythm Nonspecific ST and T wave abnormality Abnormal ECG When compared with ECG of 01-JUL-2020 16:35, No significant changes seen Referred By: Morro Sarmiento Electronically Signed By:CJ NOLAND
[2020-08-12 10:32] LABS: MANUAL DIFF FLAG NO
[2020-08-12 10:53] LABS: Basophils Percent Auto 0.3 % (0-2); Eosinophils Absolute Auto 0.1 X10*3/uL (0.0-0.4); Hematocrit 38.4 % (37-47); Hemoglobin 12.3 g/dl (12.0-16.0); Imm Gran Pct Auto 1.1 % (0.0-0.4); Lymphocytes Absolute Auto 2.1 X10*3/uL (1.2-4.9); Lymphocytes Percent Auto 22.7 % (20-40); Mean Corpuscular Hemoglobin 27.5 pg (27.0-33.0); Mean Corpuscular Volume 85.7 fL (80-98); Mean Platelet Volume 11.1 fL (9.4-12.3); Monocytes Absolute Auto 0.6 X10*3/uL (0.1-1.2); Monocytes Percent Auto 6.3 % (2-11); Neutrophils Absolute Auto 6.2 X10*3/uL (2.0-8.3); Neutrophils Percent Auto 68.6 % (45-73); Platelet Count 319 X10*3/uL (160-400); Red Blood Count 4.48 X10*6/uL (4.20-5.50); Red Cell Distribution Width 14.4 % (11.0-16.0); White Blood Count 9.1 X10*3/uL (4.8-10.8)
[2020-08-12 11:11] LABS: Troponin-I High Sensitivity 18.7 ng/L (<3.5-17.0)
[2020-08-12 11:18] LABS: Anion Gap 17 (12-20); Blood Urea Nitrogen 22 mg/dL (9-16); Calcium 9.4 mg/dL (8.4-10.2); Carbon Dioxide 20 mmol/L (22-29); Chloride 102 mmol/L (96-108); Creatinine Clr Calc Pharmacy 41.3; Estimated Glomerular Filt Rate 43; Glucose Random 419 mg/dL (60-115); Sodium 134 mmol/L (135-145)
[2020-08-12 11:24] VITALS: BP 175/85; PULSE 79; RESP 16; TEMP 36.9; O2SAT 99
[2020-08-12 11:30] LABS: INTERNATIONAL NORM RATIO 0.8 (0.9-1.1)
[2020-08-12 11:33] LABS: Partial Thromboplastin Time 36.3 SEC (24.1-38.0)
[2020-08-12] MEDS: iohexoL 350 MG/ML 100 ML INFUS..BTL IV (11:46)
[2020-08-12 11:50] LABS: Stroke Lab Use COMPLETE
[2020-08-12 12:00] VITALS: BP 175/85; PULSE 87; RESP 20; O2SAT 96
[2020-08-12] MEDS: Acetaminophen 325 MG TABLET 975 MG PO (12:06)
--- NOTE | 2020-08-12 12:21 | PC.NURSE ---
@1219PM CALL PLACED TO [facility] PT TX LINE FOR ACUTE STROKE FOR THROMBECTOMY @ DR KEENE REQUEST MJ ANSWERS, TAKES PT INFO, CALL BACK NUMBER AND ASKS TO SPEAK WITH DR KEENE. DR KEENE TAKES OVER CALL RIGHT AWAY
[2020-08-12 12:22] VITALS: BP 193/105
--- NOTE | 2020-08-12 12:43 | PC.NURSE ---
@ 12:43PM DR KEENE REQUEST CALL OUT TO [facility] FOR POSSIBLE TRANSFER NADEEN ANSWERS , TAKES PT INFO, CALLBACK NUMBER AND ASKS TO SPEAK WITH DR KEENE
[2020-08-12 12:52] LABS: COVID-19 Test Negative (Negative)
--- NOTE | 2020-08-12 12:55 | PC.NURSE ---
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
--- NOTE | 2020-08-12 13:05 | PC.NURSE ---
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 Awaiting trnasport
--- NOTE | 2020-08-12 15:15 | MHC.STROKE ---
08/12/20 DRIVEN IN BY SISTER, SHE IS STAYING WITH HER CURRENTLY. ORIGINALLY FROM CT. C/O LEFT SIDED WEAKNESS AND DROOP, ONSET APPROX 0320, GLUCOSE 419, SHE WOKE AND LOOKED AT THE CLOCK BUT SHE DID NOT WANT TO BOTHER ANYONE SO SHE DID NOT COME WITHIN THE TPA WINDOW. EXCLUDED FROM TPA BASED ON DELAY IN ARRIVAL FROM ONSET OF SYMPTOMS. SHE IS NOT HAVING ANY DIFFICULTY WITH HER SPEECH. SHE HAS A SIGNIFICANT CARDIAC HISTORY, [place] [facility] [place], SHE SAID SHE DID NOT HAVE ANY WEAKNESS YESTERDAY. TODAY SHE WAS TRIAGED AND WENT TO BED #19, THEN SEEN BY PROVIDER AT 1008, STAT CT HEAD AND CTA H/N ORDERED, CT HEAD DONE AT 1027 READ WITHIN 7 MINUTES, (SEE REPORT) RIGHT ACUTE ISCHEMIC STROKE. CTA WAS DELAYED DUE TO HER DIFFICULT IV ACCESS, ONCE IV OBTAINED CTA H/N DONE. DR KEENE NOW ASSIGNED TO HER, ALL OF THIS INFORMATION WAS RELAYED TO HIM, +LVO REPORTED RIGHT M1, [address] KEENE CONTACTED [facility], HE ALSO CONTACTED [facility] AND THEY COULD URGENTLY TAKE THE PATIENT FOR POSSIBLE THROMBECTOMY. I DID SPEAK WITH HER SON ON FACETIME IN THE ROOM AND EXPLAINED WHAT WAS HAPPENING. SHE ALSO WAS CALLING HER SISTER AND SHE WILL MEET HER AT [facility]. THE PATIENT IS AWARE OF THE PLAN OF CARE. [facility] WAS NOTIFIED SOON THE CTA RESULTS WERE REPORTED, ONCE PATIENT ACCEPTED THE PATIENT WAS TRANSFERRED AT 1311. THE RUND-ND-XEHI-OUT TIME WAS [address] MARKS WAS UPDATED ON THESE EVENTS.
== END 2020-08-12 13:11 | disposition short-term general hospital (02) ==
PROVIDERS: Emergency Provider Emergency Medicine
DX: I63.311 Cerebral infarction due to thrombosis of right middle cerebral artery (principal); R29.704 NIHSS score 4; Z20.822 Contact with and (suspected) exposure to COVID-19; E11.9 Type 2 diabetes mellitus without complications; E78.5 Hyperlipidemia, unspecified; I10 Essential (primary) hypertension; I25.2 Old myocardial infarction; Z79.4 Long term (current) use of insulin; Z79.02 Long term (current) use of antithrombotics/antiplatelets; Z79.899 Other long term (current) drug therapy
CPT/HCPCS: 36415; 70450; 70496; 70498; 80048; 82550; 84484; 85025; 85610; 85730; 87635; 93005; 99285; 99291; Q9967